=== PATIENT | female | born 1960 | race Caucasian/White ===

== ENCOUNTER 2018-10-26 18:59 | Emergency (ER) | payer SELFPAY ==
[2018-10-26 19:02] VITALS: BP 130/78; PULSE 70; RESP 18; TEMP 36.6; O2SAT 98
--- NOTE | 2018-10-26 19:14 | W.ED.GENAD ---
Discharge Plan Disposition Patient Disposition: HOME Condition: Stable Discharge Details Chief Complaint: AnimalBite Clinical Impression: Tick bite Primary Care Provider: Sylvia Vidales ED Provider: Bruno Rahman Home Meds and New Rx's Prescriptions: No Action cholecalciferol (vitamin D3) [Vitamin D3] 2,000 UNIT tablet 2,000 unit PO DAILY Qty: 90 RF: 3 albuterol sulfate [Ventolin HFA] 8 GM HFA aerosol inhaler 1 - 2 puff Inhalation Q4H PRN Qty: 1 RF: 1 inhalational spacing device [Space Chamber Plus] 1 EACH spacer 1 ea Miscellaneous PRN Qty: 1 RF: 0 Discharge Instructions Instructions: Tick Bite (ED) Medical Decision Making pt states yesterday pulled two ticks off yesterday that did not appear engorged per pt. She was concerned the head may have been left so came here for an eval. She pulled them off the upper abdomen bilaterally. She has small 0.5cm areaas of mild erythema without bulls eye and no pain or warmth. no evidence of EM or cellulitis and do not feel trying to dig out potential head indicated. advised return if worsening or if bulls eye develops Differential Diagnosis tick bite HPI General Mode of arrival: ambulatory. Date/Time Provider Initiated Documentation: 10/26/18 19:08. Limitations to Documentation: no limitations. Information obtained by: patient. History of Present Illness 57 year old F presents to the emergency department with the chief complaint of tick bite, described as mild, Patient started experiencing this day(s) (1) and it has been constant. No relieving factors improve symptom(s), No exacerbating factors reported . Patient did receive the following treatments prior to arrival, none Related Data Home Medications Medication Instructions Recorded Confirmed albuterol sulfate [Ventolin HFA] 1 - 2 puff INHALATION Q4H PRN #1 08/14/15 10/26/18 inhaler cholecalciferol (vitamin D3) 2,000 unit PO DAILY #90 tab-cap 08/14/15 10/26/18 [Vitamin D3] inhalational spacing device [Space #1 08/14/15 Chamber Plus] Allergies Allergy/AdvReac Type Severity Reaction Status Date / Time Penicillins Allergy Severe Anaphylaxsi Unverified 10/26/18 19:07 s General Stated Complaint: AnimalBite CARY: 4 Review of Systems Review of Systems All systems reviewed & are unremarkable except as noted in HPI and below Constitutional Denies chills, Denies fever(s) and Denies weakness ENT Denies change in voice Cardiovascular Denies chest pain and Denies dyspnea Respiratory Denies cough and Denies dyspnea Gastrointestinal Denies abdominal pain, Denies nausea and Denies vomiting Musculoskeletal Denies joint swelling Neurologic Denies weakness Endocrine Denies heat intolerance PFSH Medical History Anxiety Depression Family History Mother Heart disease Father Emphysema Sister Depression Mental disorder Brother Sarcoidosis of lung Social History Smoking/Tobacco Use Status: Former Tobacco Use Alcohol Intake: current Alcohol Intake frequency: holidays/special occasions only Drug use: Never Do you feel safe at home: Yes Do you feel safe in your relationship?: Yes Exam Const General: no acute distress Orientation: alert HENMT Head: normal to inspection Ears: external ears normal General nose exam: external nose normal Mouth: moist mucous membranes Eyes General: appearance normal, both eyes and all related structures Neck Neck: normal visual inspection Resp Effort & Inspection: normal respiratory effort and able to speak in complete sentences Cardio Rate: regular rate Skin General skin exam: elasticity normal Neuro General: alert and oriented x3 Extrem General: normal to inspection Psych Mental Status: mental status grossly normal Course Vital Signs Temperature 36.6 C 10/26/18 19:02 Pulse 70 10/26/18 19:02 Respiratory Rate 18 10/26/18 19:02 Blood Pressure 130/78 10/26/18 19:02 Pulse Oximetry 98 10/26/18 19:02 Temperature 36.6 C 10/26/18 19:02 Temperature Source Skin 10/26/18 19:02 Pulse 70 10/26/18 19:02 Respiratory Rate 18 10/26/18 19:02 Respiratory Effort Non-Labored 10/26/18 19:09 Blood Pressure 130/78 10/26/18 19:02 Pulse Oximetry 98 10/26/18 19:02 Oxygen Delivery Method Nasal Cannula 10/26/18 19:02 Pain Level 0 10/26/18 19:02
--- NOTE | 2018-10-26 19:17 | ED.GENADUL_ITS ---
Discharge Plan Disposition Patient Disposition: HOME Condition: Stable Discharge Details Chief Complaint: AnimalBite Clinical Impression: Tick bite Primary Care Provider: Sylvia Vidales ED Provider: Bruno Rahman Home Meds and New Rx's Prescriptions: No Action cholecalciferol (vitamin D3) [Vitamin D3] 2,000 UNIT tablet 2,000 unit PO DAILY Qty: 90 RF: 3 albuterol sulfate [Ventolin HFA] 8 GM HFA aerosol inhaler 1 - 2 puff Inhalation Q4H PRN Qty: 1 RF: 1 inhalational spacing device [Space Chamber Plus] 1 EACH spacer 1 ea Miscellaneous PRN Qty: 1 RF: 0 Discharge Instructions Instructions: Tick Bite (ED) Medical Decision Making pt states yesterday pulled two ticks off yesterday that did not appear engorged per pt. She was concerned the head may have been left so came here for an eval. She pulled them off the upper abdomen bilaterally. She has small 0.5cm areaas of mild erythema without bulls eye and no pain or warmth. no evidence of EM or cellulitis and do not feel trying to dig out potential head indicated. advised return if worsening or if bulls eye develops Differential Diagnosis tick bite HPI General Mode of arrival: ambulatory . Date/Time Provider Initiated Documentation: 10/26/18 19:08 . Limitations to Documentation: no limitations . Information obtained by: patient . History of Present Illness 57 year old F presents to the emergency department with the chief complaint of tick bite, described as mild, Patient started experiencing this day(s) (1) and it has been constant. No relieving factors improve symptom(s), No exacerbating factors reported . Patient did receive the following treatments prior to arrival, none Related Data Home Medications Medication Instructions Recorded Confirmed albuterol sulfate [Ventolin HFA] 1 - 2 puff INHALATION Q4H PRN #1 08/14/15 10/26/18 inhaler cholecalciferol (vitamin D3) 2,000 unit PO DAILY #90 tab-cap 08/14/15 10/26/18 [Vitamin D3] inhalational spacing device [Space #1 08/14/15 Chamber Plus] Allergies Allergy/AdvReac Type Severity Reaction Status Date / Time Penicillins Allergy Severe Anaphylaxsi Unverified 10/26/18 19:07 s General Stated Complaint: AnimalBite CARY: 4 Review of Systems Review of Systems All systems reviewed & are unremarkable except as noted in HPI and below Constitutional Denies chills, Denies fever(s) and Denies weakness ENT Denies change in voice Cardiovascular Denies chest pain and Denies dyspnea Respiratory Denies cough and Denies dyspnea Gastrointestinal Denies abdominal pain, Denies nausea and Denies vomiting Musculoskeletal Denies joint swelling Neurologic Denies weakness Endocrine Denies heat intolerance PFSH Medical History Anxiety Depression Family History Mother Heart disease Father Emphysema Sister Depression Mental disorder Brother Sarcoidosis of lung Social History Smoking/Tobacco Use Status: Former Tobacco Use Alcohol Intake: current Alcohol Intake frequency: holidays/special occasions only Drug use: Never Do you feel safe at home: Yes Do you feel safe in your relationship?: Yes Exam Const General: no acute distress Orientation: alert HENMT Head: normal to inspection Ears: external ears normal General nose exam: external nose normal Mouth: moist mucous membranes Eyes General: appearance normal, both eyes and all related structures Neck Neck: normal visual inspection Resp Effort & Inspection: normal respiratory effort and able to speak in complete sentences Cardio Rate: regular rate Skin General skin exam: elasticity normal Neuro General: alert and oriented x3 Extrem General: normal to inspection Psych Mental Status: mental status grossly normal Course Vital Signs Temperature 36.6 C 10/26/18 19:02 Pulse 70 10/26/18 19:02 Respiratory Rate 18 10/26/18 19:02 Blood Pressure 130/78 10/26/18 19:02 Pulse Oximetry 98 10/26/18 19:02 Temperature 36.6 C 10/26/18 19:02 Temperature Source Skin 10/26/18 19:02 Pulse 70 10/26/18 19:02 Respiratory Rate 18 10/26/18 19:02 Respiratory Effort Non-Labored 10/26/18 19:09 Blood Pressure 130/78 10/26/18 19:02 Pulse Oximetry 98 10/26/18 19:02 Oxygen Delivery Method Nasal Cannula 10/26/18 19:02 Pain Level 0 10/26/18 19:02
== END 2018-10-26 19:20 | disposition home or self-care (01) ==
PROVIDERS: Emergency Provider Emergency Medicine; PCP Nurse Practitioner Family
DX: S30.861A Insect bite (nonvenomous) of abdominal wall, initial encounter (principal); W57.XXXA Bitten or stung by nonvenomous insect and other nonvenomous arthropods, initial encounter
CPT/HCPCS: 99282

== ENCOUNTER 2019-01-30 11:38 | Outpatient (CLI) | payer OTHER, SELFPAY ==
--- NOTE | 2019-01-30 10:55 | DI.RAD_ITS ---
SYMPTOM/DIAGNOSIS: RT ACHILLES TENDINITIS RIGHT CALCANEUS: There is prominent spurring at the posterior calcaneal tuberosity. No plantar spur is seen. There are no significant degenerative changes of the talocalcaneal joint. IMPRESSION: Prominent posterior calcaneal spur.
== END 2019-01-30 11:58 ==
PROVIDERS: PCP Nurse Practitioner Adult Health; Visit Provider Student in an Organized Health Care Education/Training Program
DX: M79.671 Pain in right foot (principal); M77.31 Calcaneal spur, right foot; M76.61 Achilles tendinitis, right leg
CPT/HCPCS: 73650

== ENCOUNTER 2019-02-27 11:28 | Outpatient (REF) | payer BC, SELFPAY ==
--- NOTE | 2019-02-27 12:15 | PAPFT_PTH ---
PATIENT: Kristina Sr LOC: [facility] U#:[id number] AGE/SX: 58/F ROOM: RE02/27/[address]: Heide Nunn APRN : 1960 BED: DIS: 02/27/2019 SPEC #: [id number] RECD: 02/28/19 17:53 STATUS: ANAM REKierra #: [id number] SHANELLE: 02/27/19 12:[address]: Heide Nunn DEPT: [facility] Cytology RECD BY: Cheyanne Cowart Tissues: 1 - CX/ENDOCX FOR PAP SMEARS Procedures: PAP THIN PREP/UVM Screening HPV DNA PROBE Comments: [id number]
== END 2019-02-27 11:48 ==
LOC: LBN 11:28
PROVIDERS: PCP Nurse Practitioner Adult Health; Visit Provider Nurse Practitioner Adult Health
DX: Z12.4 Encounter for screening for malignant neoplasm of cervix (principal); Z11.51 Encounter for screening for human papillomavirus (HPV)
CPT/HCPCS: 88142; 87624

== ENCOUNTER 2019-03-21 08:14 | Outpatient (CLI) | payer SELFPAY, BC ==
--- NOTE | 2019-03-21 10:00 | HPE_ITS ---
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 Reports a significant concern with postoperative care. Patient had an appointment with physical therapy at which time they showed patient how to ambulate with crutches postoperatively. Following this PT visit she states that she has significant upper body weakness and is unsure how she will be able to ascend 14 stairs to her bedroom and bathroom once at home. In addition she reports concern regarding ability to make her own meals. Patient questions whether she can be sent to rehab or swing bed following surgery. Educated patient this is an outpatient procedure. Recommend she make a place to sleep and get a commode for the first floor of her home. After discussion patient seems less anxious about postoperative management; will discuss case with Dr. Shepherd in detail. Educated patient on surgery covering surgical technique, recovery process, benefits and risks including but not limited to risk of infection, blood clot, damage to soft tissue/blood vessels/nerves in detail. After discussion patient gives verbal understanding of risks and elects to proceed with scheduling surgery. Patient had opportunity to have questions answered to their satisfaction. They will contact office if issues arise. Patient will continue to be scheduled for right Achilles tendon debridement with possible repair and resection of Josefa's deformity with Dr. Shepherd. History of Present Illness Narrative: Ms. Sr is a 58-year-old female who presents to clinic with her for preoperative visit for scheduled right Achilles debridement with possible repair and resection of Josefa deformity. Patient has been experiencing right heel and foot pain for over a year. Describes pain as a posterior heel discomfort is noted with all weightbearing activity. Since onset of discomfort patient has tried to treat her discomfort by adapting her shoes to wear only sandals which have an open heel which has helped. In addition she has trialed heel lifts, topical CBD oil and has even tried physical therapy with continued exercising; patient reports little symptomatic improvement with these modifications. Unfortunately, she continues to have significant pain with weight bearing activity. She had tried rare OTC pain medications which did not provide long lasting relief. Denies any trauma to the foot. Denies any numbness or tingling. Due to patient's continued pain despite adequate trial conservative therapy she was offered surgical intervention and elected to proceed. Pertinent Surgical Information Denies past medical history of: Hypertension, stroke, cardiac issues, angina, sleep apnea, renal issues, liver issues, hepatitis, gastrointestinal issues, ulcers, bleeding disorders, seizures, migraines, diabetes, autoimmune disorders, thyroid issues Denies any previous surgery or anesthesia. Review of Systems Constitutional Constitutional: Denies fever(s), Denies frequent falls and Denies headache(s) Eyes Eyes: Denies change in vision ENT Ears, Nose, Mouth, and Throat: Denies dizziness, Denies ear discharge, Denies headache(s), Denies epistaxis, Denies nasal discharge and Denies sore throat Cardiovascular Cardiovascular: Denies chest pain, Reports rapid heart rate, Denies irregular heart rhythm, Denies palpitations, Reports dyspnea (reports chronic dyspnea especially at the change of season), Denies dyspnea on exertion, Denies orthopnea, Denies paroxysmal nocturnal dyspnea and Denies slow heart rate Comments: Reports recently had Novocain with epinephrine at the dentist which caused tachycardia that lasted for a few minutes; denies any recurrent symptoms. Reports her dyspnea has been present since she was in her 20s; changes minor changes with each season. Denies any change in dyspnea with activity; denies any cardiac symptoms. Respiratory Respiratory: Denies cough, Reports dyspnea (reports chronic dyspnea especially at the change of season), Denies dyspnea on exertion and Denies wheezing Gastrointestinal Gastrointestinal: Denies abdominal pain, Denies melena, Denies hematochezia, Denies constipation, Denies diarrhea, Denies nausea and Denies vomiting Genitourinary Genitourinary: Denies hematuria, Denies dysuria and Denies urinary urgency Musculoskeletal Musculoskeletal: Reports as per HPI, Denies numbness and Denies tingling Neurologic Neurologic: Denies dizziness, Denies frequent falls, Denies headache(s), Denies numbness and Denies tingling Psychiatric Psychiatric: Reports anxiety and Reports depression Endocrine Endocrine: Denies palpitations Allergic/Immunologic Allergic/Immunologic: Denies wheezing [facility] Medical History Anxiety (Inactive) Chronic shortness of breath (Chronic) Since 30s Was told it was related to being premature by pulmonology. Normal PFTs & echo. 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 Heart disease CABG x 3 at age 85 Father , Emphysema at age 77. Emphysema Smoker Sister Depression Mental disorder Schizophrenia Brother Sarcoidosis of lung Social History (Updated 03/21/19 @ 10:11 by Shell Aponte) Smoking/Tobacco Use Status: Former Tobacco Use Tobacco: How many years used: 3 Alcohol Intake: current Alcohol Intake frequency: holidays/special occasions only Alcohol type: wine Drug use: Never Substance use type: does not use Details: States CBD salve to R foot What type of physical activity do you participate in: none Do you feel safe at home: Yes Do you feel safe in your relationship?: Yes Meds Home Medications and Allergies Home Medications Medication Instructions Recorded Confirmed Type Space Chamber Plus #1 08/14/15 01/30/19 History cholecalciferol (vitamin D3) 2,000 unit PO DAILY #90 tab-cap 08/14/15 03/21/19 History [Vitamin D3] albuterol sulfate 90 mcg/actuation 1 - 2 puff INHALATION Q4H PRN #8 gm 02/27/19 03/21/19 Rx aerosol inhaler valerian root 450 mg PO PRN PRN 03/21/19 03/21/19 History Allergies Allergy/AdvReac Type Severity Reaction Status Date / Time Penicillins Allergy Severe Anaphylaxsi Verified 03/21/19 10:13 s Red wine Allergy Severe Closes up Uncoded 03/21/19 10:13 my airway Exam Const General: cooperative and no acute distress HENMT Head: normal to inspection, normocephalic and atraumatic Ears: external ears normal General nose exam: external nose normal and no nasal discharge Face and sinus: face symmetric Mouth: oral mucosae normal, lip normal, tongue normal and moist mucous membranes Teeth and gingiva: dentition normal Throat: posterior oropharynx normal Eyes General: appearance normal, both eyes and all related structures Pupils: PERRL EOM: EOM intact bilaterally Neck Neck: trachea midline Carotids: normal carotid upstroke Lymphatic: no lymphadenopathy noted Resp Effort & Inspection: normal respiratory effort and able to speak in complete sentences Auscultation: clear to auscultation bilaterally, no rales, no rhonchi and no wheezes Cardio Heart Sounds: S1 normal, S2 normal and no murmurs Pulses: radial pulses present bilaterally GI Palpation: soft, no hepatosplenomegaly and nontender Auscultation: normal bowel sounds Skin General skin exam: no rashes or lesions noted
== END 2019-03-21 08:34 ==
PROVIDERS: PCP Nurse Practitioner Adult Health; Visit Provider Student in an Organized Health Care Education/Training Program
DX: M92.61 Juvenile osteochondrosis of tarsus, right ankle (principal); M76.61 Achilles tendinitis, right leg; Z01.818 Encounter for other preprocedural examination
CPT/HCPCS: NC

== ENCOUNTER 2019-03-29 06:07 | Day surgery (SDC) | payer BC, SELFPAY ==
[2019-03-21 08:09] VITALS: BP 137/93; PULSE 67; RESP 19; TEMP 36.5; O2SAT 97
[2019-03-29] VITALS (8 sets, daily range): BP systolic 84–149; BP diastolic 32–82; PULSE 54–71; RESP 12–18; TEMP 36.1–36.5; O2SAT 93–100
[2019-03-29] MEDS: Lactated Ringers 1,000 ML 80 ML IV ×3 (07:12→09:02)
[2019-03-29] MEDS: CLINDAMYCIN 600 MG/50 ML BAG 100 MG IVPB (07:32)
[2019-03-29] MEDS: Bupivacaine 0.5% Pres-Free 30 ML VIAL (08:35)
[2019-03-29] MEDS: Bupivacaine LIPOSOME/PF 133 MG/10 ML VIAL IJ (08:35)
--- NOTE | 2019-03-29 10:30 | W.PM.DSUDISC ---
Discharge Plan Disposition Patient Disposition: HOME Condition: Good Discharge Details Reason For Visit: Right Achilles Tendinits and Josefa Deformity Attending Provider: Axel Shephedr Primary Care Provider: Heide Nunn Home Meds and New Rx's Prescriptions: New acetaminophen 500 mg tablet 1,000 mg PO Q8H PRN (Reason: pain) Qty: 60 RF: 3 aspirin 81 mg tablet,delayed release (DR/EC) 81 mg PO BID Qty: 28 RF: 0 hydrocodone-acetaminophen 5-325 mg tablet 1 tab PO Q6H PRN PRN (Reason: pain) Qty: 12 RF: 0 ibuprofen 600 mg tablet 600 mg PO TID PRNQty: 60 RF: 3 Continued albuterol sulfate [Ventolin HFA] 90 mcg/actuation HFA aerosol inhaler 1 - 2 puff Inhalation Q4H PRN Qty: 8 RF: 3 cholecalciferol (vitamin D3) [Vitamin D3] 2,000 UNIT tablet 2,000 unit PO DAILY Qty: 90 RF: 3 (DME) Space Chamber Plus 1 EACH spacer 1 ea Miscellaneous PRN Qty: 1 RF: 0 valerian root 450 mg Capsule 450 mg PO PRN PRNRF: 0 multivitamin [Daily Multiple] Tablet RF: 0 ascorbic acid (vitamin C) [Vitamin C] 1,000 mg Tablet RF: 0 Discharge Instructions Additional Instructions: Activity: You may weight bear on the right leg with the boot and with support on your walker or knee scooter. You should keep the leg elevated as much as possible. You may wiggle your toes and move your hip and knee. You should wear the fracture walking boot when you are up and mobilizing, but may remove it when not moving but only gentle motion. Dressings: You should keep the initial dressing on for at least 3 days. It may stay on until your follow-up. If it is removed, cover the wound with a light gauze dressing and place some padding under the heel. Medications: - You should take Tylenol and Ibuprofen around the clock for baseline pain. - You have been prescribed a stronger narcotic, Hydrocodone, for breakthrough pain. 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
--- NOTE | 2019-03-29 11:19 | PT.INIE ---
Date of service: 03/29/19 Time of Service: 11:12 PT Notes Inpatient Physical Therapy Evaluation Date: 03/29/2019 0400 Referring Doctor: Axel Shepherd MD PT Orders: PT CONSULT: Limited ability. PWB on right LE. Precautions: Fall. Standard. PWB on R LE. Aircast boot on with weightbearing. 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 She states however that railing are far apart so she is only able to hold onto one at a time. She has 14 steps with railing on the L going up to get to the second floor of her house. She reports that she has made modifications on the first floor of the house so that she can manage for a few days without needing to negotiate the stairs. Patient has a friend who can help her during the day while her is at work. Current Functional Limitations: Need for an assistive device for all mobility ADL performance; Inability to manage steps alone Equipment Owned/DME: 4[employer], bilateral axillary crutches, knee scooter Subjective: Patient is agreeable to a PT consult and training today. She is leary about putting too much weight on her R LE despite assurances that she may do so under PWB order of orthopedic surgeon. She denies headache, chest pain, and dizziness throughout PT session. Objective: General Observation: Patient on air cast fracture boot. Cold pack placed inside boot for pain relief. Mental Status: Alert and oriented x 4 Pain: 0/10 ROM: Right Upper Extremity: Shoulder Flexion WFL. Shoulder abduction WFL. Elbow flexion WFL. Wrist flexion WFL. Opening and closing of hand WFL. Left Upper Extremity: Shoulder Flexion WFL. Shoulder abduction WFL. Elbow flexion WFL. Wrist flexion WFL. Opening and closing of hand WFL. Right Lower Extremity: Hip flexion WFL. Hip abduction WFL. Knee flexion NT. Ankle dorsiflexion NT. Ankle plantarflexion NT. Left Lower Extremity: Hip flexion WFL. Hip abduction WFL. Knee flexion WFL. Ankle dorsiflexion WFL. Ankle plantarflexion WFL. Strength: Right Upper Extremity: Shoulder flexors 5/5. Shoulder abductors 5/5. Elbow flexors 5/5. Elbow extensors 5/5. [employer] strong. Left Upper Extremity: Shoulder flexors 5/5. Shoulder abductors 5/5. Elbow flexors 5/5. Elbow extensors 5/5. [employer]sman strong. Right Lower Extremity: Hip flexors 4/5. Hip abductors 4/5. Knee flexors NT. Knee extensors NT. Ankle dorsiflexors NT. Ankle plantarflexors NT. Left Lower Extremity:Hip flexors 5/5. Hip abductors 5/5. Knee flexors 5/5. Knee extensors 5/5. Ankle dorsiflexors 5/5. Ankle plantarflexors 5/5. Sensation: Intact as to pain and pressure on L lower extremity. Bed Mobility/Transfers: Rolling Independent Supine to sit Independent Sit to supine Independent Sit to stand supervision Stand to sit supervision Bed to chair supervision Chair to bed supervision Gait: Patient tolerated level surface ambulation of up to 60 feet using a front-wheeled walker and then bilateral axillary crutches with supervision assist and minimal verbal cueing for safe gait pattern, correct posture, and safe directional changes. Patient stated she felt freer with the cruthces but did not feel all that stable compared to the walker. [facility] to [facility] steps using the crutches with CGA of this PT with moderate verbal cues given for safe technique, cructh management, and safe gait pattern. Patient was also instructed. Balance: Static Sitting: Normal Dynamic Sitting: Normal Static Standing: Fair Dynamic Standing: Fair Special Tests: Mobility Limitations Standardized Measure [employer] AM-PAC 6 clicks Basic Mobility Inpatient Short Form: Raw Score: 23 CMS Score: 11% Informed Consent/Education: Patient instructed in purpose of PT consult and plan of care. First she was trained on how to safely use a front-wheeled walker. She was then instructed on the use of bilateral axillary crutches on level surface and on the stairs with SBA of student PT and PACU nurse. 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 She demonstrates increased confidence about walking on level surface using both the walker and the bilateral axillary crutches but is leary about negotiating steps. She did express that having home health PT train her with stair negotiation may not be a bad idea as she hopes to be able to handle 14 steps and sleep comfortably on her bed the soonest and safest that she can. Her prognosis is good as she is very motivated to return to her premorbid independnent level, has a good support system from and friend, and well-managed co-morbid conditions. Patient presents with clinical signs and symptoms consistent with current/admitting diagnoses that have resulted to mobility limitations, gait instability, generalized weakness, and impairment of motor control as demonstrated by the following impairment level findings: 1. Decreased strength to B LE major muscle groups 2. Impaired sitting/standing balance 3. Impaired activity tolerance 4. Limitation of joint range of motion in R ankle due to surgery and movement/WB restriction Impairments are contributing to the following functional limitations: 1. Inability to safely ambulate without assistive device and physical assistance 2. Increase completion time for mobility ADL performance 3. Increased fall risk 4. 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 Examination: Demonstrable impairment in strength, balance, and range of motion with underlying impairments and functional limitations as documented above Presentation:Evolving Decision Makin moderate complexity Plan of Care/Treatment Plan: Patient goes home today per orthopedic surgeon's instructions. DISCHARGE RECOMMENDATIONS: Patient will benefit from home health PT services in order to to increase independence with stair negotiation at home. Patient may benefit from the use of a front-wheeled walker to conserve energy and maximize ambulation distance. TREATMENT CODE/TIME: 27920 x 40 minutes beginning at 11:12 AM. Thank you very much for this referral. Fatuma Grullon PT, DPT, CLT [facility]
--- NOTE | 2019-03-30 07:00 | W.PM.OP ---
Date of service: 03/29/19 Time of Service: 09:00 Operative Note Operative Note DATE OF PROCEDURE: 03/29/19 PRE-OP DIAGNOSIS: Right calcific Achilles tendinitis and Josefa deformity POST-OP DIAGNOSIS: same PROCEDURE: Right Achilles tendon insertion debridement, bony resection of Josefa deformity SURGEON: Axel Shepherd PRODUCT MANAGER E COMMERCE: Shell Aponte ANESTHESIA: GETA ESTIMATED BLOOD LOSS: 5 TOURNIQUET TIME: 30 COMPLICATIONS: None Patient was transported to: PACU Patient's condition: stable Indications: Mindy is a 58-year-old female who has had persistent posterior heel pain of the right foot. She has been treating this conservatively and has been unable to wear regular shoes. She had prominence to the insertion of the Achilles with calcifications noted on x-ray and a large Josefa deformity. After reviewing treatment options, I did offer operative intervention. She did exhaust conservative treatments. I reviewed the risk of the surgery to include bleeding, infection, pain, stiffness, skin healing difficulties, Achilles tendon dysfunction, continued symptoms, damage to nerves and vessels, failure of Achilles repair, blood clot. Despite these risks, she elected to proceed. Findings: There was a notable prominence to the insertion of the Achilles as well as a large Josefa deformity. The Achilles tendon was incised but maintained attachments at the far aspects medially and laterally to expose the calcifications and they were removed. The Josefa deformity was also removed with an oscillating saw. The Achilles tendon was repaired with a single Mitek Fastin anchor, oversewn with #2 FiberWire. Procedure Description: Mindy was greeted in the preoperative holding area. Her identity was confirmed the correct site was identified and marked. The consent was reviewed the patient and signed. History physical was updated. She was taken to the operating room. In the supine position a general anesthetic was administered. She was then positioned in the prone position on a Emmanuel frame. Each arm was placed in a position of 90 degrees of abduction and 90 degrees of elbow flexion. Each was well-padded for no points of pressure. Gel cushion was also placed underneath both knees. No tourniquet was used. The left foot was prepped with ChloraPrep and draped in standard fashion. Prophylactic antibiotics in the form of clindamycin were given. A timeout was performed for safe surgery. The proposed surgical site was anesthetized with 0.5% bupivacaine and Exparel. A midline incision was then made after anesthetizing skin with 0.5% bupivacaine. This midline incision was taken down all the way to the peritenon of the Achilles tendon and the tuberosity of the calcaneus. Full-thickness skin flaps were elevated. Any bleeding was stopped with electrocautery. The tissue in general was actually of good quality. The prominence of bone was identified. The Achilles tendon was then incised longitudinally and raised in a periosteal fashion. The central fibers were elevated off of the tuberosity to expose the prominence of bony calcification. These were then resected with the use of a rongeur. Palpation was made around the tuberosity to make sure that all bony promises were removed. There is a portion of the medial and lateral Achilles still attached maintaining length. Using an oscillating saw I then resected a the Josefa deformity. A rasp was used to smooth the bony surfaces and contour the calcaneus. A single 5.0 mm Fastin anchor was then placed into the calcaneus. This had excellent purchase. A running locking suture was placed on both medial and lateral portions of the incised tendon. One limb of the suture was placed in the other it worked as a lino. This reduced the edges of the Achilles tendon down to the tuberosity. A #2 FiberWire was then placed in between the longitudinal splits in full-thickness fashion to finally reapproximate the Achilles tendon. The wound was then thoroughly irrigated. The deep tissues were injected with the remaining mixture of 10 cc of 0.5 bupivacaine and 10 cc of Exparel. A few #3-0 Vicryl was placed deep to reapproximate the skin. The skin was closed with interrupted nylon sutures. A dressing of Xeroform, 4 x 4's and Bradford wrap was applied. She was placed into a fracture walker boot. No tourniquet was used. There is minimal blood loss. At the end of the case all counts are correct. Mindy was awakened from anesthesia and transferred to the supine position. There is no notable areas of skin pressure. She was taken to the PACU in stable condition. There is no notable complications. She will be in the walker boot when she is up and ambulating. She may place her body weight on the boot but she is not step to walk on at this point. There was a padding placed below the heel to elevate the heel off the floor of the boot. She will use crutches. I will see her back in 2 weeks for a wound check and modification to her rehabilitation protocol.
== END 2019-03-29 12:25 | disposition home or self-care (01) ==
PROVIDERS: PCP Nurse Practitioner Adult Health; Visit Provider Student in an Organized Health Care Education/Training Program
PROC: (CPT 27650; principal; 2019-03-29 07:30)
DX: M76.61 Achilles tendinitis, right leg (principal); M77.31 Calcaneal spur, right foot; M89.8X7 Other specified disorders of bone, ankle and foot
CPT/HCPCS: 28119; 27606; 97162; C1713; J0131; J1100; J1885; J2250; J2405; J3010; L4361

== ENCOUNTER 2019-08-15 01:47 | Outpatient (CLI) | payer BC, SELFPAY ==
[2019-08-15 08:47] LABS: Abs Immature Grans 0.01 k/cumm (0.0-0.09); Absolute Basophil Count 0.04 k/cumm (0.0-0.2); Absolute Eosinophil Count 0.16 k/cumm (0.0-0.7); Absolute Lymphocyte Count 1.68 k/cumm (1.2-3.4); Absolute Monocyte Count 0.28 k/cumm (0.11-0.7); Absolute Neutrophil Count 1.97 k/cumm (1.2-6.7); Eosinophils % 3.9; HCT 40.5 % (36.0-46.0); HGB 13.2 g/dL (12.0-15.5); Immature Grans % 0.2 %; Lymphocytes % 40.6; Mean Corp. HGB Concentration 32.6 g/dL (32.0-36.0); Mean Corpuscular Hemoglobin 27.9 pg (27.0-33.0); Mean Corpuscular Volume 85.6 fL (80-95); Mean Platelet Volume 9.7 fL (8.0-11.0); Monocytes % 6.8; Neutrophils % 47.5; Platelet Count 294 x1000/uL (130-400); RBC 4.73 m/cumm (4.00-5.20); RBC Distribution Width 14.4 % (11.7-14.6); White Blood Cell Count 4.14 k/cumm (4.4-10.8)
[2019-08-15 08:50] LABS: Hemoglobin A1C 5.9 % (3.8-5.6)
[2019-08-15 09:38] LABS: ALT 23 U/L (14-59); AST 14 U/L (15-37); Albumin 3.9 g/dL (3.4-5.0); Alkaline Phosphatase 82 U/L (46-116); Anion Gap 8.1 mmol/L (3-11); BUN 16 mg/dL (7-18); Bilirubin, Total 0.6 mg/dL (0.2-1.0); CO2 28.9 mmol/L (21.0-32.0); CREATININE 0.71 mg/dL (0.55-1.02); Calcium 8.8 mg/dL (8.5-10.1); Calculated LDL 131 mg/dL (<100); Chloride 102 mmol/L (98-107); Cholesterol 229 mg/dL (<200); Glucose 95 mg/dL (74-106); HDL Cholesterol 81 mg/dL (40-60); Sodium 139 mmol/L (136-145); TSH (W/Ref FT4) 2.73 uIU/mL (0.36-3.74); Total Protein 7.3 g/dL (6.4-8.2); Triglyceride 88 mg/dL (<150); Vitamin B12 465 pg/mL (193-986)
== END 2019-08-15 02:07 ==
PROVIDERS: PCP Nurse Practitioner Adult Health; Visit Provider Nurse Practitioner Adult Health
DX: F41.9 Anxiety disorder, unspecified (principal); R53.83 Other fatigue; R73.01 Impaired fasting glucose; E66.9 Obesity, unspecified; Z13.1 Encounter for screening for diabetes mellitus; Z13.220 Encounter for screening for lipoid disorders
CPT/HCPCS: 36415; 80053; 80061; 82306; 82607; 83036; 84443; 85025

== ENCOUNTER 2020-04-25 02:28 | Outpatient (CLI) | payer BC, SELFPAY ==
[2020-04-25 12:40] LABS: Vitamin D 25 Total 54.3 ng/ml (30-100)
== END 2020-04-25 02:48 ==
PROVIDERS: PCP Nurse Practitioner Adult Health; Visit Provider Nurse Practitioner Adult Health
DX: Z86.39 Personal history of other endocrine, nutritional and metabolic disease (principal)
CPT/HCPCS: 36415; 82306

== ENCOUNTER 2020-08-20 01:19 | Outpatient (CLI) | payer BC, SELFPAY ==
--- NOTE | 2020-08-20 10:14 | DI.RAD_ITS ---
EXAM: XR SHOULDER RT COMPLETE 2+V CLINICAL HISTORY: PAIN, TENDINITIS RT SHOULDER, M75.81 TECHNIQUE: COMPARISON: No exams were available for comparison FINDINGS: Five views were obtained. There are minimal hypertrophic degenerative changes of the acromioclavicul ar joint. No other significant bony abnormality seen. Cartilaginous joint space of glenohumeral fred nt appears well maintained. IMPRESSION: Mild DJD of acromioclavicular joint. Requisition raises the possibility of tendinitis and no periten dinous soft tissue calcifications are identified. RADIATION DOSE DELIVERED: Total DLP
== END 2020-08-20 01:39 ==
PROVIDERS: PCP Nurse Practitioner Adult Health; Visit Provider Family Medicine
DX: M25.511 Pain in right shoulder (principal); M19.011 Primary osteoarthritis, right shoulder; M75.81 Other shoulder lesions, right shoulder
CPT/HCPCS: 73030

== ENCOUNTER 2020-10-23 02:49 | Outpatient (CLI) | payer BC, SELFPAY ==
[2020-10-23 08:21] LABS: Hemoglobin A1C 5.5 % (<5.7)
[2020-10-23 09:57] LABS: ALT 25 U/L (14-59); AST 17 U/L (15-37); Albumin 3.8 g/dL (3.4-5.0); Alkaline Phosphatase 82 U/L (46-116); Anion Gap 9.1 mmol/L (3-11); BUN 12 mg/dL (7-18); Bilirubin, Total 0.6 mg/dL (0.2-1.0); CO2 27.9 mmol/L (21.0-32.0); CREATININE 0.7 mg/dL (0.55-1.02); Calcium 9.1 mg/dL (8.5-10.1); Calculated LDL 123 mg/dL (<100); Chloride 105 mmol/L (98-107); Cholesterol 218 mg/dL (<200); Glucose 95 mg/dL (74-106); HDL Cholesterol 81 mg/dL (40-60); Potassium 4.3 mmol/L (3.5-5.1); Sodium 142 mmol/L (136-145); TSH (W/Ref FT4) 2.13 uIU/mL (0.36-3.74); Total Protein 7.1 g/dL (6.4-8.2); Triglyceride 73 mg/dL (<150)
[2020-10-24 04:31] LABS: Vitamin D 25 Total 66.2 ng/mL (30-100)
[2020-10-24 10:08] LABS: HIV-1/2 Ag & Ab Screen Negative (Negative)
[2020-10-24 10:29] LABS: Hepatitis C Ab w Rflx HCV PCR Negative (Negative)
[2020-10-24 10:45] LABS: Lyme Ab w Rflx to Lyme Confirm Negative (Negative)
== END 2020-10-23 02:50 | disposition home or self-care (01) ==
LOC: LBO 02:49
PROVIDERS: PCP Nurse Practitioner Adult Health; Visit Provider Nurse Practitioner Adult Health
DX: R73.01 Impaired fasting glucose (principal); E55.9 Vitamin D deficiency, unspecified; R03.0 Elevated blood-pressure reading, without diagnosis of hypertension; E78.2 Mixed hyperlipidemia; E66.3 Overweight; W57.XXXA Bitten or stung by nonvenomous insect and other nonvenomous arthropods, initial encounter; T14.8XXA Other injury of unspecified body region, initial encounter; Z11.4 Encounter for screening for human immunodeficiency virus [HIV]; Z11.59 Encounter for screening for other viral diseases
CPT/HCPCS: 36415; 80053; 80061; 82306; 86803; 87389; 83036; 84443; 86618

== ENCOUNTER 2020-11-27 01:25 | Outpatient (CLI) | payer BC, SELFPAY ==
--- NOTE | 2020-11-27 08:45 | DI.RAD_ITS ---
Exam(s) XR CERVICAL SPINE COMP 4-5V EXAM: XR CERVICAL SPINE COMP 4-5V CLINICAL HISTORY: assess c-spine bony alignment--narrowing C6/7C7/8?,PAIN RT UPPER ARM,HAND. TECHNIQUE: 2D digital imaging was performed. COMPARISON: No exams were available for comparison FINDINGS: There is no evidence of fracture, listhesis, nor offset of the spinal laminar line. There is moderat e chronic disc space narrowing at C5-6 and C6-7 levels and anterior osteophytes at these 2 levels. S lightly milder disc space narrowing is noted at C4-5, also with anterior osseous lipping. Disc space s above this level exhibit normal height as does the C7-T1 disc space. On the oblique views there ar e left-sided Luschka joint osteophytes evident at C6-7 level. No osteophytes on the right side at th is level. There are no cervical ribs. Mild facet degenerative changes are noted IMPRESSION: Chronic degenerative disc disease. Left-sided Luschka joint osteophytes at C6-7 level causing an josh ment of left-sided foraminal stenosis at this level. DATA REPOSITORY: RADIATION DOSE DELIVERED:
== END 2020-11-27 01:45 ==
PROVIDERS: PCP Nurse Practitioner Adult Health; Visit Provider Nurse Practitioner Adult Health
DX: M50.323 Other cervical disc degeneration at C6-C7 level (principal); M48.02 Spinal stenosis, cervical region; M79.621 Pain in right upper arm
CPT/HCPCS: 72050

== ENCOUNTER 2021-02-06 01:36 | Outpatient (CLI) | payer BC, MEDICAID, SELFPAY ==
--- NOTE | 2021-02-06 08:00 | DI.MRI_ITS ---
Exam(s) MR CERVICAL SPINE W EXAM: MR CERVICAL SPINE W CLINICAL HISTORY: T2 foci C3/C4 C5/C6,?demyelinating disease,F/U ABNL MRI,NUMBNESS AND TING TECHNIQUE: T2 sagittal and post gadolinium T1 sagittal and axial sequences were performed. CONTRAST MATERIAL: IV Contrast: 19 ML of Dotarem contrast administered. COMPARISON: MR MRI CERVICAL WO from 01/08/2021 from [place] open MRI FINDINGS: BONES: Vertebral body heights are maintained. Intervertebral disc spaces are normal. Alignment is nor mal. Bone marrow signal intensity is within normal limits. CERVICAL CORD: Abnormal high signal on the T2 sagittal sequence at the C3 -4 and and C5-6 levels. Th ere is no associated enhancement following IV gadolinium. Craniovertebral junction is unremarkable. The cervical cord is normal diameter. SOFT TISSUES: Unremarkable. ENHANCEMENT: No suspicious enhancement identified. Degenerative disc changes are again noted as reported on the previous exam. IMPRESSION: No evidence of enhancement within the high T2 signal foci within the cervical cord. DATA REPOSITORY:
--- NOTE | 2021-02-06 08:00 | DI.MRI_ITS ---
Exam(s) MR BRAIN WO/W EXAM: MR BRAIN WO/W CLINICAL HISTORY: T2 foci C3/C4 C5/C6,?demyelinating disease,NUMBNESS,TINGLING. TECHNIQUE: Multiplanar multisequence MRI of the brain was performed. CONTRAST MATERIAL: IV Contrast: 19 ML of Dotarem contrast administered. COMPARISON: No exams were available for comparison FINDINGS: VENTRICLES AND EXTRA AXIAL SPACES: Normal in size and morphology for the patient's age. HEMORRHAGE: None. CEREBRAL PARENCHYMA: 16 millimeter diameter high signal focus in the posterior left frontal lobe. The re is no associated enhancement. There are few a additional scattered tiny high signal lesions in the white matter which are nonspecific. Asymmetric increased high signal seen around the posterior horn of the left lateral ventricle. This also shows no associated enhancement. There is an additional smal l focus of high signal on FLAIR images in the left frontal lobe just beneath the level of the lateral ventricle. MIDLINE SHIFT: None. BRAINSTEM/CEREBELLUM: Normal. VISUALIZED PARANASAL SINUSES/MASTOIDS: Clear. IMPRESSION: Abnormal high signal foci in the left frontal lobe and adjacent to the posterior horn of the left lat eral ventricle. there is no associated enhancement however the findings are still suspicious for dem yelinating disease. DATA REPOSITORY:
[2021-02-06] MEDS: Gadoterate meglumine 20 ML VIAL 19 ML IVP (14:56)
== END 2021-02-06 01:56 ==
PROVIDERS: PCP Nurse Practitioner Adult Health; Visit Provider Nurse Practitioner Adult Health
DX: M47.812 Spondylosis without myelopathy or radiculopathy, cervical region (principal); R20.0 Anesthesia of skin; R20.2 Paresthesia of skin; R93.7 Abnormal findings on diagnostic imaging of other parts of musculoskeletal system; R94.02 Abnormal brain scan
CPT/HCPCS: 70553; 72142

== ENCOUNTER 2021-02-19 07:37 | Outpatient (CLI) | payer BC, SELFPAY ==
[2021-02-19 15:09] LABS: Source Nasal/Nares
[2021-02-19 16:06] LABS: COVID-19 PCR Negative (Negative)
== END 2021-02-19 07:38 | disposition home or self-care (01) ==
PROVIDERS: PCP Nurse Practitioner Adult Health; Visit Provider Nurse Anesthetist, Certified Registered
DX: Z20.822 Contact with and (suspected) exposure to COVID-19 (principal); Z01.818 Encounter for other preprocedural examination; G35 Multiple sclerosis; R06.02 Shortness of breath
CPT/HCPCS: 87635

== ENCOUNTER 2021-02-20 03:06 | Outpatient (CLI) | payer BC, SELFPAY ==
[2021-02-20 07:38] LABS: Abs Immature Grans 0.01 10^3/uL (0.0-0.06); Absolute Basophil Count 0.04 10^3/uL (0.0-0.2); Absolute Eosinophil Count 0.12 10^3/uL (0.0-0.7); Absolute Lymphocyte Count 1.48 10^3/uL (1.2-3.4); Absolute Monocyte Count 0.36 10^3/uL (0.1-0.8); Absolute Neutrophil Count 2.51 10^3/uL (1.2-6.7); Basophils % 0.9; Eosinophils % 2.7; HCT 41.5 % (36.0-46.0); HGB 13.8 g/dL (11.2-15.7); Immature Grans % 0.2; Lymphocytes % 32.7; MCH 28.9 pg (27.0-33.0); MCHC 33.3 % (32.0-36.0); MPV 9.7 fL (8.0-11.0); Neutrophils % 55.5; Nucleated RBC 0 %; Platelet Count 259 10^3/uL (130-400); RBC 4.77 10^6/uL (3.93-5.22); RDW 13.7 % (11.7-14.6); WBC 4.52 10^3/uL (4.4-10.8)
[2021-02-20 08:35] LABS: ALT 27 U/L (14-59); AST 9 U/L (15-37); Albumin 4.3 g/dL (3.4-5.0); Alkaline Phosphatase 83 U/L (46-116); Anion Gap 11.3 mmol/L (3-11); BUN 11 mg/dL (7-18); Bilirubin, Total 0.8 mg/dL (0.2-1.0); CO2 25.7 mmol/L (21.0-32.0); CREATININE 0.9 mg/dL (0.55-1.02); Calcium 9.3 mg/dL (8.5-10.1); Chloride 104 mmol/L (98-107); Glucose 102 mg/dL (74-106); Potassium 4.1 mmol/L (3.5-5.1); Sodium 141 mmol/L (136-145); Total Protein 7.6 g/dL (6.4-8.2)
[2021-02-20 08:55] LABS: Vitamin D 25 Total 60.5 ng/mL (30-100)
[2021-02-21 08:42] LABS: IgA 241 mg/dL (85-499); IgG 1167 mg/dL (610-1,616); IgM 152 mg/dL (35-242)
[2021-02-21 10:40] LABS: Varicella IgG Antibody Positive (See Note)
[2021-02-21 11:55] LABS: HIV-1/2 Ag & Ab Screen Negative (Negative)
[2021-02-21 12:14] LABS: HBs Antibody, Qual Negative (See Note); HBs Antibody, Quant <3.1 mIU/mL (See Note); Hepatitis B Core Antibody Negative (Negative); Hepatitis B surface Ag Negative (Negative); Hepatitis C Ab w Rflx HCV PCR Negative (Negative)
[2021-02-24 15:56] LABS: CSF Bands 13 bands; CSF Olig Bands Interpretation 13 bands (<2); Serum Bands 0 bands
[2021-02-25 07:43] LABS: JC Virus DNA, QN <500 copies/mL; Source PLASMA
== END 2021-02-20 03:07 | disposition home or self-care (01) ==
LOC: LBO 03:07
PROVIDERS: PCP Nurse Practitioner Adult Health; Visit Provider Psychiatry & Neurology Neurology
DX: G35 Multiple sclerosis (principal); R20.2 Paresthesia of skin; Z11.59 Encounter for screening for other viral diseases; Z11.4 Encounter for screening for human immunodeficiency virus [HIV]
CPT/HCPCS: 36415; 80053; 82306; 82784; 86704; 86706; 86787; 86803; 87340; 87389; 87799; 83916; 85025

== ENCOUNTER 2021-02-20 07:32 | Day surgery (SDC) | payer BC, MEDICAID, SELFPAY ==
[2021-02-20 07:50] VITALS: BP 144/86; PULSE 59; RESP 16; TEMP 36.6; O2SAT 94
--- NOTE | 2021-02-20 08:07 | W.ANESPRE ---
General Info Date of Service Date Performed: 02/20/21 Height: 5 ft 5 in Weight: 88.1 kg Body Mass Index (BMI): 32.3 Surgical Procedure: Operation Date: 02/20/21 09:10 Proposed Procedures Side Surgeon p Lumbar Puncture Winnie Multani CRNA Meds Allergies and Home Medications Allergies Allergy/AdvReac Type Severity Reaction Status Date / Time Penicillins Allergy Severe Anaphylaxsi Verified 02/20/21 07:46 s Red wine Allergy Severe Closes up Uncoded 02/20/21 07:46 my airway Home Medication Medication Instructions Recorded albuterol sulfate 90 mcg/actuation 1 - 2 puff INHALATION Q4H PRN #8 gm 02/27/19 aerosol inhaler acetaminophen 1,000 mg PO Q8H PRN #60 tab 03/29/19 multivitamin [Daily Multiple] 1 tab PO DAILY 03/29/19 cholecalciferol (vitamin D3) 50 4,000 unit PO DAILY #90 tab-cap 08/28/19 mcg (2,000 unit) tablet ascorbic acid (vitamin C) 1,000 mg 1,000 mg PO DAILY 08/23/20 tablet coenzyme Q10 75 mg capsule 75 mg PO DAILY 11/18/20 lorazepam 0.5 mg tablet 0.5 - 1 mg PO ONCE PRN #3 tab 02/03/21 PFSH Active Problems Active Problems: Problem Status Onset Code 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 Multiple sclerosis G35 Abnormal MRI, cervical spine R93.7 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 Hand paresthesia R20.2 Lesion of gingiva K06.8 Increased BMI (body mass index) R63.8 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 Normal PFTs & echo. PFT 08/01/15 [facility] Degenerative joint disease of cervical spine MRI c-spine 01/2021 Depression Citalopram with good relief Elevated BP without diagnosis of hypertension TLCs 2020-->May reassess Elevated cholesterol with elevated triglycerides ASCVD score 2.4% (no statin indicated; 2019) History of vitamin D deficiency with +fam h/o osteoporosis--recommend supplementation Hyperlipidemia (06/24/15) ACC/AHA 2012 10-year ASCVD risk = ~2% --> no statin indicated at this time Impaired fasting glucose (06/24/15) 5.9%-->5.5% (2020) Increased BMI (body mass index) Lesion of gingiva Spasmodic dysphonia [facility] ENT Dr. 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 Surgical History Surgical History Josefa's deformity of right heel Status post Achilles debridement and Josefa's resection: 03/29/2019 History of laryngoscopy (09/10/20) [facility] E[facility]-Dr Nolasco Right Achilles tendinitis Status post Achilles debridement and Josefa's resection: 03/29/2019 Tobacco Smoking/Tobacco Use Status: Former Tobacco Use Tobacco: How many years used: 3 Alcohol Alcohol Intake: current Alcohol intake frequency: holidays/special occasions only Alcohol type: wine Substance Use Substance use: Never Substance use type: does not use Vital Signs and Lab Results Vital Signs Most Recent Vital Signs in EMR: Most Recent Vital Signs Temp Pulse Resp BP Pulse Ox 36.6 C 59 L 16 144/86 H 94 02/20/21 07:50 02/20/21 07:50 02/20/21 07:50 02/20/21 07:50 02/20/21 07:50 Lab Results Blood Type / Crossmatch: No Data to Display Complete Blood Count: White Blood Count 4.52 10^3/uL (4.4-10.8) 02/20/21 07:25 02/20/21 Red Blood Count 4.77 10^6/uL (3.93-5.22) 02/20/21 07:02/20/21 Hemoglobin 13.8 g/dL (11.2-15.7) 02/20/21 07:02/20/21 Hematocrit 41.5 % (36.0-46.0) 02/20/21 07:02/20/21 Platelet Count 259 10^3/uL (130-400) 02/20/21 07:02/20/21 Complete Metabolic Panel: No Data to Display Liver Function Panel: No Data to Display Coagulation Panel: No Data to Display Cardiac Panel: No Data to Display Arterial Blood Gas: No Data to Display Venous Blood Gas: No Data to Display Pancreas Panel: No Data to Display Thyroid Panel: No Data to Display Infectious Disease: Coronavirus (COVID-19)(PCR) Negative (Negative) 02/19/21 10:08 02/19/21 Coronavirus 2019 Source Nasal/Nares 02/19/21 10:08 02/19/21 Hepatitis B Surface Antigen Pending 02/20/21 07:02/20/21 Blood Cultures: No Data to Display Toxicology Panel: No Data to Display Anesthesia Assessment and Plan Anesthesia History Personal History: No History of Anesthesia Complications Family History: No Family History of Anesthesia Complications Exercise Tolerance Exercise Tolerance: Metabolic Equivalents>4 Pertinent Negatives Pertinent Negatives: No Major Cardiovascular Symptoms or Complaints Cardiac & Pulmonary Exam Cardiac Exam: Normal S1/S2 Heart Sounds Pulmonary Exam: Clear Bilateral Breath Sounds Airway Exam Known Difficult Airway: No Mallampati Class: 3 Mouth Opening: Normal (> 3cm) Thyromental Distance: Greater than 3 cm Neck Range of Motion: Full ROM Neck Circumference: Normal Teeth Condition: Normal Dentition ASA Classification ASA Score: ASA 2 Emergency Case?: No NPO Status NPO Status: NPO Clears >2 hours, Solids >8 hours Anesthesia Plan Resuscitation Status: Full Code Anesthesia Technique: MAC Anesthesia Airway Planned: Natural Airway Monitors Used: Standard Monitors
[2021-02-20 08:11] VITALS: BMI 32.3
--- NOTE | 2021-02-20 08:27 | W.ANESPROC ---
Lumbar Puncture Date Performed: 02/20/21 Procedure Time: 08:49 Requesting Provider: Sonya Guillaume Procedure Location: Day Surgery Unit Standard Monitors Applied: None Used Patient Position: Sitting Timeout Performed: Yes Sedation Given (Indicate Dose Given): MKO Melt PO Dose:: 1 tab at 0814 Patient Mental Status: Awake Sterility: Hand Hygiene, Surgical Cap, Surgical Mask, Sterile Gloves, Sterile Drape/Sheet and Chlorhexidine Placement Site: L3-L4 Interspace Spinal Needle Type: Alba 22 Gauge Needle Length: 3.5 Inch Lumbar Puncture Procedure: Site Prepped, Sterile Drape Placed, 1% Lidocaine to skin and subcutaneous tissue with 25G needle, Introducer Needle Used, Spinal Needle Placed, Negative Heme, Positive CSF Flow, CSF Specimen placed into Tubes in Sequential Order and Specimen Labeled, Sent to Lab Ultrasound: Not Used Paresthesia: None Number of Previous Attempts by Other Providers: 0 Number of Attempts (See previous attempts in note section): 1 Procedure Tolerated: No Complications and Patient tolerated well Procedure Outcome: Successful Procedure Comment:: MKO melt given at 0814 prior to procedure with good effect. Performed By: Winnie Multani
[2021-02-20 08:53] VITALS: BP 137/94; PULSE 60; RESP 16; TEMP 36.4; O2SAT 93
--- NOTE | 2021-02-20 09:18 | W.ANESPOSTOP ---
Postoperative Evaluation Date, Time and Location Date Performed: 02/20/21 Time Performed: 08:55 Patient Location: Day Surgery Unit Vital Signs Most Recent Imported Vital Signs: Most Recent Vital Signs Temp Pulse Resp BP Pulse Ox 36.4 C L 60 16 137/94 H 93 02/20/21 08:53 02/20/21 08:53 02/20/21 08:53 02/20/21 08:53 02/20/21 08:53 Pain Score Most Recent Pain Score: Most Recent Pain Score Pain Level 0 02/20/21 08:53 Assessment Mental Status: Awake (Alert & Oriented to Patient Baseline) Airway and Respiratory Function: Patent airway with normal (patient baseline) respiratory exam Cardiovascular Function: Hemodynamically Stable Hydration Status: Adequately Hydrated Nausea & Vomiting: No Nausea or Vomiting Pain: Pt. Denies Any Pain Peripheral Nerve Block: Patient did not receive a nerve block Teaching Patient Teaching: Other (Advised to seek medical attention in ER if suffers a persistent headache not resolved with, fluids, caffeine, and rest. )
[2021-02-20 09:28] VITALS: BP 145/84; PULSE 75; RESP 14; TEMP 36.3; O2SAT 93
[2021-02-20 09:30] LABS: Total Protein (CSF) 49 mg/dL (15-45)
[2021-02-20 09:31] LABS: Glucose (CSF) 56 mg/dL (40-70)
[2021-02-20 09:42] LABS: Clarity Clear; Tube # 4
[2021-02-20 09:43] LABS: RBC 0 /mm3 (0-5); WBC 3 /uL (0-5); Xanthochromia Absent
[2021-02-24 10:17] LABS: Albumin, CSF 23.4 mg/dL (<=25.1); Albumin, S 4.5 g/dL (3.4-4.9); IgG Index, CSF 1.22 Index (<=0.84); IgG, S 1174 mg/dL (610-1,616); IgG/Albumin, CSF 0.32 Ratio (<=0.24); Synthesis Rate, CSF 19.29 mg/24hrs (<=8.00)
[2021-02-24 13:34] LABS: IgG, CSF 7.47 mg/dL (<=5.00)
== END 2021-02-20 09:50 | disposition home or self-care (01) ==
PROVIDERS: Psychiatry & Neurology Neurology; PCP Nurse Practitioner Adult Health; Visit Provider Nurse Anesthetist, Certified Registered
PROC: 009U3ZZ Drainage of Spinal Canal, Percutaneous Approach (ICD-10-PCS; CPT 62270; principal; 2021-02-20 09:00)
DX: G35 Multiple sclerosis (principal)
CPT/HCPCS: 62270; 82945; 89050; 89051; 82040; 82042; 82784; 84157; 87070; 87205

== ENCOUNTER 2021-04-17 20:02 | Emergency (ER) | payer MEDICAID, SELFPAY ==
[2021-04-17 20:11] VITALS: BP 137/86; PULSE 65; RESP 14; TEMP 36.7; O2SAT 98
--- NOTE | 2021-04-17 21:01 | ED.GENADUL_ITS ---
Discharge Plan Disposition Patient Disposition: HOME Condition: Stable Discharge Details Clinical Impression: Tick bite Primary Care Provider: Heide Nunn ED Provider: Michi Fabian Home Meds and New Rx's Prescriptions: Continued albuterol sulfate [Ventolin HFA] 90 mcg/actuation HFA aerosol inhaler 1 - 2 puff Inhalation Q4H PRN Qty: 8 RF: 3 cholecalciferol (vitamin D3) [Vitamin D3] 50 mcg (2,000 unit) tablet 4,000 unit PO DAILY Qty: 90 RF: 3 coenzyme Q10 75 mg capsule 75 mg PO DAILY RF: 0 lorazepam 0.5 mg tablet 0.5 - 1 mg PO ONCE PRN (Reason: anxiety) Qty: 3 RF: 0 multivitamin [Daily Multiple] Tablet 1 tab PO DAILY RF: 0 acetaminophen 500 mg tablet 1,000 mg PO Q8H PRN (Reason: pain) Qty: 60 RF: 3 ascorbic acid (vitamin C) [Vitamin C] 1,000 mg tablet 1,000 mg PO DAILY RF: 0 Discharge Instructions Instructions: Tick Bite (ED) Additional Instructions: The head of the tick was removed without difficulty. A single dose of doxycycline was given prophylactically. Please watch for new or worsening symptoms and return to the ER for any concerns. Otherwise I recommend following up with your primary care provider. Discharge Data Discharge Date/Time-TO BE ENTERED AT DEPARTURE: 04/17/21 21:08 Medical Decision Making 60-year-old female presents with a tick bite to her right shoulder, believes that occurred sometime today, is asymptomatic but concerned there still may be a tick in the bite site. Clinically she appears well, nontoxic. Given the uncertainty of timing, will give a single dose of 200 mg p.o. doxycycline but do not believe that a prolonged course is indicated. Using an 11 blade I was able to scrape away the black foreign body. The area is now without a foreign body. Patient tolerated the procedure well. She remains asymptomatic. Area was then dressed with an antibiotic Band-Aid. Patient has no additional questions or concerns and is comfortable with discharge. Standard discharge and return pr ecautions provided. This documentation was generated using xzoopsation system, please disregard any oddities of phrase or misspellings. Medical Records Medical records reviewed: Yes I reviewed the patient's medical records. HPI General Mode of arrival: ambulatory . Date/Time Provider Initiated Documentation: 04/17/21 21:01 . Limitations to Documentation: no limitations . Information obtained by: patient . HPI Narrative: This is a 60-year-old female, past medical history of anxiety, depression, hyperlipidemia, chronic shortness of breath, MS, presenting for a right shoulder tick bite. Patient states that she took a shower this morning did not notice the tick. Noticed a small tick evening attached to her right shoulder, it was not engorged, she removed the tick but feels like the jaw may still be present. She denies any other symptoms. Denies fever, joint pain, rash. Patient has no additional questions or concerns at this time. Related Data Home Medications Medication Instructions Recorded Confirmed albuterol sulfate 90 mcg/actuation 1 - 2 puff INHALATION Q4H PRN #8 gm 02/27/19 04/17/21 aerosol inhaler acetaminophen 1,000 mg PO Q8H PRN #60 tab 03/29/19 04/17/21 multivitamin [Daily Multiple] 1 tab PO DAILY 03/29/19 04/17/21 cholecalciferol (vitamin D3) 50 4,000 unit PO DAILY #90 tab-cap 08/28/19 04/17/21 mcg (2,000 unit) tablet ascorbic acid (vitamin C) 1,000 mg 1,000 mg PO DAILY 08/23/20 04/17/21 tablet coenzyme Q10 75 mg capsule 75 mg PO DAILY 11/18/20 04/17/21 lorazepam 0.5 mg tablet 0.5 - 1 mg PO ONCE PRN #3 tab 02/03/21 04/17/21 Previous Rx's Medication Instructions Recorded albuterol sulfate 90 mcg/actuation 1 - 2 puff INHALATION Q4H PRN #8 gm 02/27/19 aerosol inhaler acetaminophen 1,000 mg PO Q8H PRN #60 tab 03/29/19 lorazepam 0.5 mg tablet 0.5 - 1 mg PO ONCE PRN #3 tab 02/03/21 Allergies Allergy/AdvReac Type Severity Reaction Status Date / Time Penicillins Allergy Severe Anaphylaxsi Verified 04/17/21 20:15 s Red wine Allergy Severe Closes up Uncoded 04/17/21 20:15 my airway General Stated Complaint: AnimalBite CARY: 4 Review of Systems Constitutional Constitutional: Denies fever(s) Musculoskeletal Musculoskeletal: Denies arthralgias Integumentary/Breasts Skin/Breast: Denies erythema PFSH Medical History Abnormal MRI, cervical spine T2 signal foci C3/C4 posterior R cord & C5/C6 anterior L cord (see scanned open MRI reports 01/09/2021) Anxiety Chronic shortness of breath Since 20s Was told it was related to being premature by pulmonology. Normal PFTs & echo. PFT 08/01/15 [facility] Degenerative joint disease of cervical spine MRI c-spine 01/2021 Depression Citalopram with good relief Elevated BP without diagnosis of hypertension TLCs 2020-->May reassess Elevated cholesterol with elevated triglycerides ASCVD score 2.4% (no statin indicated; 2019) History of vitamin D deficiency with +fam h/o osteoporosis--recommend supplementation Hyperlipidemia (06/24/15) ACC/AHA 2012 10-year ASCVD risk = ~2% --> no statin indicated at this time Impaired fasting glucose (06/24/15) 5.9%-->5.5% (2020) Increased BMI (body mass index) Lesion of gingiva Spasmodic dysphonia [facility] ENT Dr. 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 Heart disease CABG x 3 at age 85 Osteoporosis Father , Emphysema at age 77. 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 Pets and animals: Yes Pets and animals: cat(s) and dog(s) Do you think of yourself as: straight/heterosexual Current gender identity: female What is your relationship status?: How often do you talk on the phone with friends or family?: twice per week How often do you get together with friends or relatives?: three or more times per week How often do you attend alevism or islam services?: 1-3 times per year Do you belong to any clubs or organized social groups?: no Panel score (0-1 are the most socially isolated patients): 2 What type of physical activity do you participate in: none and walking Duration: 30-45 minutes/day Frequency: 5-6 times per week Kita/Pentecostalism: Unitarian Universalist Seatbelt use: always Helmet use: Yes 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 Do you feel safe at home: Yes Do you feel safe in your relationship?: Yes Exam Const General: cooperative, healthy appearing, comfortable and no acute distress Orientation: alert and awake [facility] Head: normal to inspection, normocephalic and atraumatic Eyes General: appearance normal, both eyes and all related structures Conjunctivae: conjunctivae normal Neck Neck: normal visual inspection, trachea midline and supple Resp Effort & Inspection: normal respiratory effort and able to speak in complete sentences Skin General skin exam: no rashes or lesions noted Neuro General: patient alert, patient awake, moves all extremities and no focal motor deficits Cognition: normal cognition Speech: speech normal Gait: normal gait Sensory Exam: no sensory deficits noted Extrem General: full ROM and capillary refill normal Shoulder/upper arm images: 1. There is a puncture wound, centrally there appears to be a black foreign body. There is no warmth, erythema, discharge, induration or fluctuance. Area is nontender. No bleeding. Neuro, vascular, tendon intact. Psych Appearance: grossly normal Mental Status: mental status grossly normal Course Vital Signs Vital signs: Vital Signs Temperature 36.7 C 04/17/21 20:11 Pulse 65 04/17/21 20:11 Respiratory Rate 14 04/17/21 20:11 Blood Pressure 137/86 04/17/21 20:11 Pulse Oximetry 98 04/17/21 20:11 Temperature 36.7 C 04/17/21 20:11 Temperature Source Skin 04/17/21 20:11 Pulse 65 04/17/21 20:11 Respiratory Rate 14 04/17/21 20:11 Respiratory Effort Non-Labored 04/17/21 20:16 Blood Pressure 137/86 04/17/21 20:11 Blood Pressure Position Sitting 04/17/21 20:11 Pulse Oximetry 98 04/17/21 20:11 Oxygen Delivery Method Room Air 04/17/21 20:11 Oxygen Flow Rate 0 04/17/21 20:11 Pain Level 0 04/17/21 20:11 Procedures Foreign Body Removal Site: right and upper extremity Description of foreign body: other (tick) Sedation/Analgesia: none Technique: other (11 blade) Confirmed by:: direct visualization Complications: none Neurovascular: normal distal pulse, normal capillary fill, distal light touch sensation intact, distal motor function normal and no signs of compartment syndrome
[2021-04-17] MEDS: Doxycycline Hyclate 100 MG CAP (21:02)
== END 2021-04-17 21:08 | disposition home or self-care (01) ==
PROVIDERS: Emergency Provider Physician Assistant; PCP Nurse Practitioner Adult Health
DX: S40.261A Insect bite (nonvenomous) of right shoulder, initial encounter (principal); W57.XXXA Bitten or stung by nonvenomous insect and other nonvenomous arthropods, initial encounter
CPT/HCPCS: 99283

== ENCOUNTER 2021-06-30 01:54 | Outpatient (CLI) | payer MEDICAID, SELFPAY ==
--- NOTE | 2021-06-30 07:30 | DI.MAMMO_ITS ---
Exam(s) MAMMO SCREENING EXAM: MAMMO SCREENING CLINICAL HISTORY: screening. TECHNIQUE: Bilateral full field digital CC and MLO mammographic images were obtained with 3D tomosyn thesis and utilizing computer aided detection (CAD). COMPARISON: None. This is a baseline mammogram on this 60-year-old patient FINDINGS: No significant radiograph findings in the right breast. The left breast there is asymmetric density possible nodule located laterally on the CC view approxim ately 11 cm in nipple, measuring approximately 7 x 5 millimeters. Spot compression view and ultrasound recommended. There are no malignant-appearing microcalcification groups in either breast There is no significant architectural distortion nor skin thickening-retraction. IMPRESSION: No radiographic evidence of malignancy in the right breast. Left breast nodule. Spot compression view/ultrasound recommended BI-RADS Category 0 - Assessment Incomplete: Need additional imaging evaluation Breast Density - Category B - Scattered areas of fibroglandular density Breast density Category C or D implies that the patient has dense breast tissue. Dense breast tissue can make it harder to find cancer on a mammogram. Dense breast tissue is also associated with an incr eased risk of breast cancer. This information about the result of the mammogram report was provided to the patient to raise their awareness. Use this report when you speak with the patient about their risks for breast cancer, which includes their family history. At that time, you may recommend additional screening tests (Ultrasoun d or MRI) as these tests may add significant information. A negative radiographic report should not delay biopsy if a dominant or clinically suspicious mass is present. Up to ten percent of cancers are not identified on mammography. A negative report may reinforce clinical impression. Adenosis and dense breasts may obscure an underlying neoplasm. False positive reports average 6 to 10%. Patient will receive a letter notifying them of these results.
== END 2021-06-30 02:14 ==
PROVIDERS: PCP Nurse Practitioner Adult Health; Visit Provider Nurse Practitioner Adult Health
DX: Z12.31 Encounter for screening mammogram for malignant neoplasm of breast (principal); R92.8 Other abnormal and inconclusive findings on diagnostic imaging of breast
CPT/HCPCS: 77063; 77067

== ENCOUNTER 2021-07-01 03:59 | Outpatient (CLI) | payer MEDICAID, SELFPAY ==
[2021-07-01 08:40] LABS: Hemoglobin A1C 5.5 % (<5.7)
[2021-07-01 09:07] LABS: ALT 20 U/L (14-59); AST 14 U/L (15-37); Albumin 3.7 g/dL (3.4-5.0); Alkaline Phosphatase 76 U/L (46-116); Anion Gap 7.3 mmol/L (3-11); BUN 12 mg/dL (7-18); Bilirubin, Total 0.8 mg/dL (0.2-1.0); CO2 28.7 mmol/L (21.0-32.0); CREATININE 0.8 mg/dL (0.55-1.02); Calcium 8.7 mg/dL (8.5-10.1); Calculated LDL 111 mg/dL (<100); Chloride 99 mmol/L (98-107); Cholesterol 202 mg/dL (<200); Glucose 89 mg/dL (74-106); HDL Cholesterol 78 mg/dL (40-60); Potassium 4.2 mmol/L (3.5-5.1); Sodium 135 mmol/L (136-145); Total Protein 6.8 g/dL (6.4-8.2); Triglyceride 66 mg/dL (<150); Vitamin B12 536 pg/mL (193-986)
[2021-07-03 00:48] LABS: Vitamin D 25 Total 72.5 ng/mL (30-100)
== END 2021-07-01 04:00 | disposition home or self-care (01) ==
LOC: LBO 03:59
PROVIDERS: PCP Nurse Practitioner Adult Health; Visit Provider Nurse Practitioner Adult Health
DX: E78.2 Mixed hyperlipidemia (principal); G35 Multiple sclerosis; R03.0 Elevated blood-pressure reading, without diagnosis of hypertension; R73.01 Impaired fasting glucose; Z86.39 Personal history of other endocrine, nutritional and metabolic disease
CPT/HCPCS: 36415; 80053; 80061; 82306; 82607; 83036

== ENCOUNTER 2021-07-14 02:06 | Outpatient (CLI) | payer MEDICAID, SELFPAY ==
--- NOTE | 2021-07-14 | DI.MAMMO_ITS ---
Exam(s) MAMMO SCREEN CALL BACK UNI US BREAST LT COMPLETE EXAM: MAMMO SCREEN CALL BACK UNI -LEFT AND COMPLETE LEFT BREAST ULTRASOUND CLINICAL HISTORY: F/U MAMMO,ASYMMETRIC DENSITY, ? NODULE. TECHNIQUE: Unilateral spot mammographic images obtained with 3D tomosynthesisand utilizing computer aided detection (CAD). . Complete LEFT breast Ultrasound was also performed, including all 4 quadrants, the retroareolar regio n, and the ipsilateral axilla. COMPARISON: Prior mammograms were reviewed. This additional imaging was performed due to findings described on the recent BASELINE screening mammogram of 06/30/2021. FINDINGS: Additional mammographic views performed todayare equivocal for the presence of a true nodule at this level. Ultrasound performed today reveals no significant focal findings in all 4 quadrants. This implies th at the nodule seen on the mammogram is most probably benign lymph node.. There is no ipsilateral lef t axillary adenopathy. IMPRESSION: No radiographic evidence of malignancy. Negative complete left breast ultrasound. Findings today suggest that the nodular density seen in the upper outer quadrant of the left breast o n the recent screening mammogram is most probably benign intramammary lymph node. Appropriate follow-up is repeat left breast mammogram in 6 months. The patient was informed of these findings and recommendations prior to leaving the department today. BI-RADS Category 3 - 6 month - Probably Benign Finding: Recommend follow-up mammography in 6 months Breast Density - Category B - Scattered areas of fibroglandular density Breast density Category C or D implies that the patient has dense breast tissue. Dense breast tissue can make it harder to find cancer on a mammogram. Dense breast tissue is also associated with an incr eased risk of breast cancer. This information about the result of the mammogram report was provided to the patient to raise their awareness. Use this report when you speak with the patient about their risks for breast cancer, which includes their family history. At that time, you may recommend additional screening tests (Ultrasoun d or MRI) as these tests may add significant information. A negative radiographic report should not delay biopsy if a dominant or clinically suspicious mass is present. Up to ten percent of cancers are not identified on mammography. A negative report may reinforce clinical impression. Adenosis and dense breasts may obscure an underlying neoplasm. False positive reports average 6 to 10%. Patient will receive a letter notifying them of these results.
== END 2021-07-14 02:26 ==
PROVIDERS: PCP Nurse Practitioner Adult Health; Visit Provider Nurse Practitioner Adult Health
DX: Z12.31 Encounter for screening mammogram for malignant neoplasm of breast (principal); R92.8 Other abnormal and inconclusive findings on diagnostic imaging of breast; N60.82 Other benign mammary dysplasias of left breast
CPT/HCPCS: 76642; 77063; 77067

== ENCOUNTER 2021-10-11 19:28 | Emergency (ER) | payer MEDICAID, SELFPAY ==
[2021-10-11 19:32] VITALS: BP 134/80; PULSE 83; RESP 18; TEMP 36.7; O2SAT 98
--- NOTE | 2021-10-11 19:41 | W.ED.GENAD ---
Discharge Plan Disposition Patient Disposition: HOME Condition: Stable Discharge Details Clinical Impression: Tick bite Primary Care Provider: Heide Nunn ED Provider: Paras Tripathi Home Meds and New Rx's Prescriptions: Continued cholecalciferol (vitamin D3) [Vitamin D3] 50 mcg (2,000 unit) tablet 5,000 unit PO DAILY Qty: 90 3RF coenzyme Q10 75 mg capsule 200 mg PO DAILY 0RF gotu sadia (Centella asiatica) 441 mg capsule 1 cap PO DAILY 0RF Rx Instructions: 450 m,g daily ginkgo biloba 40 mg tablet 60 mg PO TID 0RF Rx Instructions: give with meal/snack magnesium glycinate 100 mg tablet 300 mg PO DAILY 0RF multivitamin [Daily Multiple] Tablet 1 tab PO DAILY 0RF acetaminophen 500 mg tablet 1,000 mg PO Q8H PRN (Reason: pain) Qty: 60 3RF ascorbic acid (vitamin C) [Vitamin C] 1,000 mg tablet 1,000 mg PO DAILY 0RF Discharge Instructions Instructions: Tick Bite (ED) Additional Instructions: Please perform daily tick checks after working in the outdoors. You were given a single 200 mg dose of doxycycline as empiric one-time treatment for probable Lyme disease exposure. Continue your routine medications. Return to the ER for any acute concerns Medical Decision Making 60-year-old female presents with a right lower anterior abdominal wall engorged tick bite that she removed at home and then brought for evaluation. This does appear to be a deer tick. I discussed with her single one-time dose of 200 mg of doxycycline given probable exposure to Lyme disease. Patient agreed to this, the medication was administered, and she was discharged to home. HPI General Mode of arrival: ambulatory. Date/Time Provider Initiated Documentation: 10/11/21 19:28. Limitations to Documentation: no limitations. Information obtained by: patient. History of Present Illness 60 year old F presents to the emergency department with the chief complaint of Tick bite right lower anterior abdomen, described as mild, Quality is described as constant, and is localized to the abdomen. Patient started experiencing this day(s) improves with No relieving factors improve symptom(s), No exacerbating factors reported . Patient notes denies fever/chills. Patient did receive the following treatments prior to arrival, none Related Data Home Medications Medication Instructions Recorded Confirmed acetaminophen 500 mg tablet 1,000 mg PO Q8H PRN #60 tab 03/29/19 09/15/21 multivitamin (Daily Multiple) 1 tab PO DAILY 03/29/19 09/15/21 ascorbic acid (vitamin C) 1,000 mg 1,000 mg PO DAILY 08/23/20 09/15/21 tablet (Vitamin C) cholecalciferol (vitamin D3) 50 5,000 unit PO DAILY #90 tab-cap 09/15/21 09/15/21 mcg (2,000 unit) tablet (Vitamin D3) coenzyme Q10 75 mg capsule 200 mg PO DAILY cap 09/15/21 09/15/21 ginkgo biloba 40 mg tablet 60 mg PO TID tab 09/15/21 09/15/21 gotu sadia (Centella asiatica) 441 1 cap PO DAILY cap 09/15/21 09/15/21 mg capsule magnesium glycinate 100 mg tablet 300 mg PO DAILY tab 09/15/21 09/15/21 Previous Rx's Medication Instructions Recorded acetaminophen 500 mg tablet 1,000 mg PO Q8H PRN #60 tab 03/29/19 Allergies Allergy/AdvReac Type Severity Reaction Status Date / Time Penicillins Allergy Severe Anaphylaxsi Verified 09/15/21 11:21 s Red wine Allergy Severe Closes up Uncoded 09/15/21 11:21 my airway General Stated Complaint: Cellulitis CARY: 4 Review of Systems Narrative: Tick was removed. Patient has otherwise been well. No other complaints PFSH All Active Problems Tick bite (Acute) Category 3 mammography result with short follow-up interval suggested for probably benign finding (Acute ~07/2021) F/U L breast U/S 6m (01/2022) Pulmonary nodule (Acute ~05/2021) 2 nodules, sub 5mm in size. Per chest CT, [facility] 05/2021. 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 Muscle tension dysphonia (Chronic) Per [facility] ENT note from 02/18/21 Multiple sclerosis (Chronic) Relapsing remitting multiple sclerosis per [facility] Neurology note from 04/11/21 Degenerative joint disease of cervical spine (Chronic) MRI c-spine 01/2021 Increased BMI (body mass index) (Acute) Elevated BP without diagnosis of hypertension (Chronic) TLCs 2020-->May reassess Elevated cholesterol with elevated triglycerides (Chronic) ASCVD score 2.4% (no statin indicated; 2019) Stress and adjustment reaction (Chronic) Work History of vitamin D deficiency (Chronic) with +fam h/o osteoporosis--recommend supplementation Impaired fasting glucose (Chronic 06/24/15) 5.9%-->5.5% (2020) Uncomplicated asthma (Chronic 08/14/15) PFTs 08/03/15 Medical History Abnormal MRI, cervical spine T2 signal foci C3/C4 posterior R cord & C5/C6 anterior L cord (see scanned open MRI reports 01/09/2021) Anxiety Chronic shortness of breath Since 20s Was told it was related to being premature by pulmonology. Normal PFTs & echo. 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 Heart disease CABG x 3 at age 85 Osteoporosis Father , Emphysema at age 77. 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 Pets and animals: Yes Pets and animals: cat(s) and dog(s) Do you think of yourself as: straight/heterosexual Current gender identity: female What is your relationship status?: How often do you talk on the phone with friends or family?: twice per week How often do you get together with friends or relatives?: three or more times per week How often do you attend buddhist or hoahaoism services?: 1-3 times per year Do you belong to any clubs or organized social groups?: no Panel score (0-1 are the most socially isolated patients): 2 What type of physical activity do you participate in: none and walking Duration: 30-45 minutes/day Frequency: 5-6 times per week Kita/Mandaen: Unitarian Universalist Seatbelt use: always Helmet use: Yes Drive 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 Pleasant, well groomed, interactive. HEAD: Normocephalic, atraumatic ENT: Mucous membranes moist, oropharynx unremarkable, External ear exam unremarkable EYES: PERRL, EOMI CHEST/RESP: No respiratory distress Abdomen: Soft, there is a discrete area of erythema with central bite shala measuring approximately 1 cm diameter on the right lower anterior abdominal wall. No fluctuance or tenderness EXT: Full ROM, no edema, no rash Neuro: Grossly normal neurologic exam, conversant, interactive. Psych: Speech fluent, thoughts congruent, affect normal Course Vital Signs Vital signs: Vital Signs Temperature 36.7 C 10/11/21 19:32 Pulse 83 10/11/21 19:32 Respiratory Rate 18 10/11/21 19:32 Blood Pressure 134/80 10/11/21 19:32 Pulse Oximetry 98 10/11/21 19:32 Temperature 36.7 C 10/11/21 19:32 Temperature Source Tympanic 10/11/21 19:32 Pulse 83 10/11/21 19:32 Respiratory Rate 18 10/11/21 19:32 Respiratory Effort 05/07/22 19:35 Blood Pressure 134/80 10/11/21 19:32 Blood Pressure Position Supine 10/11/21 19:32 Pulse Oximetry 98 10/11/21 19:32 Oxygen Delivery Method Room Air 10/11/21 19:32 Oxygen Flow Rate 0 10/11/21 19:32 Pain Level 0 10/11/21 19:32
[2021-10-11] MEDS: Doxycycline Hyclate 100 MG CAP 200 MG PO (19:44)
== END 2021-10-11 19:43 | disposition home or self-care (01) ==
LOC: ER 19:47
PROVIDERS: Emergency Provider Emergency Medicine; PCP Nurse Practitioner Adult Health
DX: S30.861A Insect bite (nonvenomous) of abdominal wall, initial encounter (principal); W57.XXXA Bitten or stung by nonvenomous insect and other nonvenomous arthropods, initial encounter
CPT/HCPCS: 99283

== ENCOUNTER 2021-11-10 03:29 | Outpatient (CLI) | payer MEDICAID, SELFPAY | END 2021-11-10 03:30 | disposition home or self-care (01) | PROVIDERS: PCP Nurse Practitioner Adult Health; Visit Provider Nurse Practitioner Adult Health ==

== ENCOUNTER → 2022-01-06 02:18 | Outpatient (CLI) | payer MEDICAID, SELFPAY ==
--- NOTE | 2022-01-06 07:00 | DI.MAMMO_ITS ---
Exam(s) MAMMO DIAGNOSTIC UNI EXAM: MAMMO DIAGNOSTIC UNI CLINICAL HISTORY: 6m. F/U, F/U ABNL mammo L breast,R92.8. TECHNIQUE: Craniocaudal and mediolateral oblique Full Field Digital Mammography views of the left br east with Computer Aided Diagnosis followed by Tomosynthesis. COMPARISON: Comparison is made with prior examinations. FINDINGS: Mammography/Tomosynthesis: Masses/Architectural Distortion: None seen. Microcalcifictions: No suspicious pleomorphic-type are seen. Skin Thickening/Nipple Retraction: None. IMPRESSION: 1. No evidence of malignancy is noted. 2. Unless there is more urgent need, follow-up screening mammography is recommended, as per [employer] guidelines. 3. The findings were discussed with the patient on the date of the examination. BI-RADS Category 1 - Negative Breast Density - Category B - Scattered areas of fibroglandular density Breast density Category C or D implies that the patient has dense breast tissue. Dense breast tissue can make it harder to find cancer on a mammogram. Dense breast tissue is also associated with an incr eased risk of breast cancer. This information about the result of the mammogram report was provided to the patient to raise their awareness. Use this report when you speak with the patient about their risks for breast cancer, which includes their family history. At that time, you may recommend additional screening tests (Ultrasoun d or MRI) as these tests may add significant information. A negative radiographic report should not delay biopsy if a dominant or clinically suspicious mass is present. Up to ten percent of cancers are not identified on mammography. A negative report may reinforce clinical impression. Adenosis and dense breasts may obscure an underlying neoplasm. False positive reports average 6 to 10%. Patient will receive a letter notifying them of these results.
== END ==
PROVIDERS: PCP Nurse Practitioner Adult Health; Visit Provider Nurse Practitioner Adult Health
DX: R92.8 Other abnormal and inconclusive findings on diagnostic imaging of breast (principal)
CPT/HCPCS: 77061; 77065; G0279

== ENCOUNTER 2022-02-04 02:37 | Outpatient (CLI) | payer MEDICAID, SELFPAY ==
[2022-02-04 07:53] LABS: Hemoglobin A1C 5.8 % (<5.7)
[2022-02-04 08:27] LABS: Calculated LDL 107 mg/dL (<100); Cholesterol 201 mg/dL (<200); HDL Cholesterol 78 mg/dL (40-60); TSH (W/Ref FT4) 2.06 uIU/mL (0.36-3.74); Triglyceride 80 mg/dL (<150)
== END 2022-02-04 02:38 | disposition home or self-care (01) ==
LOC: LBO 02:37
PROVIDERS: PCP Nurse Practitioner Adult Health; Visit Provider Nurse Practitioner Adult Health
DX: R73.01 Impaired fasting glucose (principal); E03.8 Other specified hypothyroidism; F43.29 Adjustment disorder with other symptoms; R03.0 Elevated blood-pressure reading, without diagnosis of hypertension
CPT/HCPCS: 36415; 80061; 83036; 84443

== ENCOUNTER → 2022-04-02 03:08 | Outpatient (CLI) | payer MEDICAID, SELFPAY ==
--- NOTE | 2022-04-02 08:45 | DI.DEXA_ITS ---
Exam(s) XR DEXA BONE DENSITY W/WO NOA EXAM: XR DEXA BONE DENSITY W/WO NOA CLINICAL HISTORY: screening FOR OSTEOPOROSIS; fam hx osteoporosis,POSTMENOPAUSAL,Z78.0 TECHNIQUE: COMPARISON: No exams were available for comparison FINDINGS: Lateral Spine Image: Unremarkable. No compression deformities identified. Left hip: Total T-Score: -0.5 Total Z-Score: 0.5 T- and Z-scores: Within normal limits. Lumbar Spine: Total T-Score: -0.2 Total Z-Score: 1.3 T- and Z-scores: Within normal limits. IMPRESSION: No evidence of osteoporosis.
== END ==
PROVIDERS: PCP Nurse Practitioner Adult Health; Visit Provider Nurse Practitioner Adult Health
DX: Z13.820 Encounter for screening for osteoporosis (principal); Z78.0 Asymptomatic menopausal state; Z82.62 Family history of osteoporosis
CPT/HCPCS: 77080

== ENCOUNTER 2022-07-23 16:24 | Outpatient (REF) | payer MEDICAID, SELFPAY ==
[2022-07-25 11:17] LABS: COVID-19 RT-PCR UVMMC Result Negative (Negative)
== END 2022-07-23 16:25 | disposition home or self-care (01) ==
LOC: LBN 16:24
PROVIDERS: PCP Nurse Practitioner Adult Health; Visit Provider Physician Assistant Medical
DX: J02.9 Acute pharyngitis, unspecified (principal)
CPT/HCPCS: U0003; 87081

== ENCOUNTER 2022-10-12 03:01 | Outpatient (CLI) | payer MEDICAID, SELFPAY ==
[2022-10-12 08:50] LABS: Abs Immature Grans 0.02 10^3/uL (0.0-0.06); Absolute Basophil Count 0.06 10^3/uL (0.0-0.2); Absolute Eosinophil Count 0.13 10^3/uL (0.0-0.7); Absolute Lymphocyte Count 1.62 10^3/uL (1.2-3.4); Absolute Monocyte Count 0.34 10^3/uL (0.1-0.8); Absolute Neutrophil Count 2.12 10^3/uL (1.2-6.7); Basophils % 1.4; HCT 42.3 % (36.0-46.0); HGB 14.1 g/dL (11.2-15.7); Immature Grans % 0.5; Lymphocytes % 37.8; MCH 30.1 pg (27.0-33.0); MCHC 33.3 % (32.0-36.0); MCV 90 fL (80-95); MPV 9.6 fL (8.0-11.0); Monocytes % 7.9; Neutrophils % 49.4; Platelet Count 213 10^3/uL (130-400); RBC 4.68 10^6/uL (3.93-5.22); RDW 13.2 % (11.7-14.6); RDW-SD 43.5 fL; WBC 4.29 10^3/uL (4.4-10.8)
[2022-10-12 09:07] LABS: Hemoglobin A1C 5.5 % (<5.7)
[2022-10-12 10:09] LABS: ALT 25 U/L (14-59); AST 17 U/L (15-37); Albumin 3.7 g/dL (3.4-5.0); Alkaline Phosphatase 82 U/L (46-116); Anion Gap 8.8 mmol/L (3-11); BUN 17 mg/dL (7-18); Bilirubin, Total 0.5 mg/dL (0.2-1.0); CO2 29.2 mmol/L (21.0-32.0); CREATININE 0.8 mg/dL (0.55-1.02); Calcium 8.9 mg/dL (8.5-10.1); Calculated LDL 123 mg/dL (<100); Chloride 102 mmol/L (98-107); Cholesterol 219 mg/dL (<200); Folate 11.5 ng/mL (8.6-20.0); Glucose 99 mg/dL (74-106); HDL Cholesterol 78 mg/dL (40-60); Magnesium 1.8 mg/dL (1.8-2.4); Sodium 140 mmol/L (136-145); TSH (W/Ref FT4) 1.47 uIU/mL (0.36-3.74); Total Protein 7.4 g/dL (6.4-8.2); Triglyceride 92 mg/dL (<150); Vitamin B12 502 pg/mL (193-986)
[2022-10-12 10:51] LABS: Vitamin D 25 Total 65.2 ng/mL (30-100)
== END 2022-10-12 03:02 | disposition home or self-care (01) ==
LOC: LBO 03:01
PROVIDERS: PCP Nurse Practitioner Adult Health; Visit Provider Nurse Practitioner Adult Health
DX: R73.01 Impaired fasting glucose (principal); G35 Multiple sclerosis; R53.83 Other fatigue; Z13.1 Encounter for screening for diabetes mellitus; Z13.220 Encounter for screening for lipoid disorders; Z13.29 Encounter for screening for other suspected endocrine disorder; Z79.899 Other long term (current) drug therapy
CPT/HCPCS: 36415; 80053; 80061; 82306; 82607; 82746; 83036; 83735; 84443; 85025

== ENCOUNTER → 2023-02-15 01:00 | Outpatient (CLI) | payer BC, SELFPAY ==
--- NOTE | 2023-02-15 06:30 | DI.MAMMO_ITS ---
Exam(s) MAMMO SCREENING EXAM: MAMMO SCREENING CLINICAL HISTORY: screening,z12.39. TECHNIQUE: Bilateral full field digital CC and MLO mammographic images were obtained with 3D tomosyn thesis and utilizing computer aided detection (CAD). COMPARISON: Prior mammograms were reviewed. FINDINGS: Small benign-appearing nodule laterally in the left breast again noted has appearance of benign intra mammary lymph node. There are no new spiculated masses nor malignant appearing microcalcification groups in either breast . There is no significant architectural distortion nor skin thickening-retraction. IMPRESSION: Stable benign findings. No radiographic evidence of malignancy. BI-RADS Category 2 - Benign Findings Breast Density - Category B - Scattered areas of fibroglandular density Breast density Category C or D implies that the patient has dense breast tissue. Dense breast tissue can make it harder to find cancer on a mammogram. Dense breast tissue is also associated with an incr eased risk of breast cancer. This information about the result of the mammogram report was provided to the patient to raise their awareness. Use this report when you speak with the patient about their risks for breast cancer, which includes their family history. At that time, you may recommend additional screening tests (Ultrasoun d or MRI) as these tests may add significant information. A negative radiographic report should not delay biopsy if a dominant or clinically suspicious mass is present. Up to ten percent of cancers are not identified on mammography. A negative report may reinforce clinical impression. Adenosis and dense breasts may obscure an underlying neoplasm. False positive reports average 6 to 10%. Patient will receive a letter notifying them of these results.
== END ==
PROVIDERS: PCP Nurse Practitioner Adult Health; Visit Provider Nurse Practitioner Adult Health
DX: Z12.31 Encounter for screening mammogram for malignant neoplasm of breast (principal)
CPT/HCPCS: 77063; 77067

== ENCOUNTER → 2023-02-23 02:14 | Outpatient (CLI) | payer BC, SELFPAY ==
--- NOTE | 2023-02-23 06:33 | ETT_ITS ---
APPROVED REPORT Exam: Exercise Treadmill Patient Location: Out-Patient Room/Bed: Stress Nurse: Mya Choi RN Ordering Provider:LAY POSADAS, Contact Number: [phone] BMI: 29.45 Baseline Rhythm: Sinus Rhythm Indications: Shortness of breath Medical History Medical History: Chronic SOB, COVID, DJD, spinal lesions, elevated BP w/o dx of HTN, ?asthma, vit D d ef., MS, leukopenia Cardiac Medications: None Allergies: Penicillins, red wine Cardiac Risk Factors: +family history, history of smoking (quit 30 years ago) Previous Cardiac Procedures: None Pretest Chest Pain Characteristics: None Exercise History: Indeterminate Physical Disabilities: None Lung Sounds: LCTA Heart Sounds: Regular, s1/s2 Stress Test Details Test: Exercise stress testing was performed using a Michael protocol. Rest Stress HR Resting HR Supine: 61 bpm Max Heart Rate (APMHR): 159 bpm Resting HR Standin bpm Target HR (85% APMHR): 135 bpm Max HR Achieved: 141 bpm % of APMHR: 89 Recovery HR: 69 bpm HR response to stress: Normal HR response to stress BP Resting BP Supine: 185/92 mmHg Resting BP Standin/90 mmHg Max BP: 172/90 mmHg Recovery BP: 140/80 mmHg BP response to stress: Normal blood pressure response to stress. ECG Resting ECG: Sinus Rhythm Ectopy: None Stress ECG: Sinus Tachycardia ST Change: No significant ST segment changes noted Arrhythmia: Rare PVC Recovery ECG: Sinus Rhythm Recovery ST Change: No significant ST segment changes noted Recovery Arrhythmia: None Clinical Reason for Termination: Fatigue, Target HR Achieved Stress Symptoms: Dyspnea, General Fatigue Exercise duration: 6 min27 sec Highest Stage Reached: Stage 3: 3.4 mph at 14% grade. Exercise capacity: 7.73 METs Angina Score: None Aguayo Treadmill Score: 5.7 Rate Pressure Product: [id number] Stress ECG Conclusion 1. Resting electrocardiogram was within normal limits 2. Patient exercised on the Michael protocol and completed a workload of 7.73 METS 3. Normal heart rate and blood pressure response to exercise. The patient achieved 89% of predicted heart rate for age 4. There was no electrocardiographic evidence of myocardial ischemia 5. There were no significant dysrhythmias Aguayo Treadmill Score is 5.7 which is Low risk. Stress Test Summary STAGE Time (mins) Speed (mph) Grade (%) HR BP SpO2 SYMPTOMS METS Supine 61 158/92 Standing 74 134/90 98% 1 3 1.7 10 105 172/90 4.5 2 6 2.5 12 132 178/90 95% 7 3 9 3.4 14 141 10 1 min recovery 124 164/80 96%, mild shortness of breath 3 min recovery 77 152/80 97% 6 min recovery 69 140/80 98%
== END ==
PROVIDERS: PCP Nurse Practitioner Adult Health; Visit Provider Nurse Practitioner Adult Health
DX: R06.02 Shortness of breath (principal)
CPT/HCPCS: 93017

== ENCOUNTER 2023-04-06 03:55 | Outpatient (CLI) | payer BC, SELFPAY ==
[2023-04-06 13:12] LABS: BE 2 mmol/L (-2-3); HCO3 26 mmol/L (22-26); pCO2 40 mmHg (35-45); pH 7.42 (7.35-7.45); pO2 90 mmHg (80-105); sO2 98 % (95-98); tCO2 23 mmol/L (23-27)
[2023-04-06 13:15] LABS: FIO2L ROOM AIR L; Site Left Radial
== END 2023-04-06 03:56 | disposition home or self-care (01) ==
LOC: RT 03:55
PROVIDERS: PCP Nurse Practitioner Adult Health; Visit Provider Student in an Organized Health Care Education/Training Program
DX: G35 Multiple sclerosis (principal); R06.02 Shortness of breath
CPT/HCPCS: 82805; 94726; 94729; 36600; 94010

== ENCOUNTER → 2023-05-17 02:34 | Outpatient (CLI) | payer BC, SELFPAY ==
--- NOTE | 2023-05-17 08:00 | DI.US_ITS ---
APPROVED REPORT EXAM: Comprehensive 2D, Doppler, and color-flow Echocardiogram Patient Location: Out-Patient [facility] Stained Glass: Vannesa Santacruz RDCS (AE) Indications: SOB with sensation cardiac blood flow, H/O MVP Other Information Study Quality: Good Conclusion Normal left ventricular wall thickness and chamber size. Ejection fraction is 60 to 65%. Wall motio n is normal Normal right ventricular size and systolic function Both atria are normal in size There is no structural or hemodynamically significant valvular disease Borderline dilated aortic root and ascending aorta Wall motion Left Ventricle The left ventricle is normal size. The left ventricular systolic function is normal. The left ventric ular ejection fraction is within the normal range. There is normal left ventricular wall thickness. T here is normal LV segmental wall motion. Left ventricular filling pattern is normal for age. There is no ventricular septal defect visualized. LVEF is 60-65%. Right Ventricle The right ventricle is normal size. The right ventricular systolic function is normal. Atria The left atrium size is normal. The right atrium size is normal. The interatrial septum is intact wit h no evidence for an atrial septal defect. Aortic Valve The aortic valve is normal in structure. Aortic valve is trileaflet. There is no aortic valvular sten osis. Mitral Valve The mitral valve is normal in structure. No evidence of mitral valve stenosis. Trace to mild mitral regurgitation. Mild mitral valve prolapse. Tricuspid Valve The tricuspid valve is normal in structure. There is no tricuspid valve stenosis. Trace tricuspid reg urgitation. Unable to assess PA pressure. Pulmonic Valve The pulmonary valve is normal in structure. There is no pulmonic valvular stenosis. Trace pulmonic re gurgitation. Great Vessels Aortic root is mildly dilated. The ascending aorta is mildly dilated. Aortic arch is normal in calib er. IVC is normal in size and collapses >50% with inspiration. Pericardium There is no pericardial effusion. 2D Dimensions IVSD d PLAX 0.91 cm F: 0.6-1.0 Ao Root d 3.59 cm F: 2.7 - 3.3 LVPW d PLAX 0.88 cm F: 0.6 - 1.0 Ao Asc Diam d 3.49 cm F: 2.3 - 3.1 LVID d PLAX 5.01 cm F: 3.8 - 5.2 LVDs 3.24 cm F: 2.2 - 3.5 LV EF Teichholz 64.4 % FS 35.26 % LV EDV (Teich) 118.9 mL LV ESV (Teich) 42.4 mL M-Mode TAPSE 2.05 cm (M/F) >1.7 Auto EF LV EDV A4C 133.0 mL LV EDV A2C 156.7 mL LV EDV BP 144.8 mL LV ESV A4C 58.9 mL LV ESV A2C 54.7 mL LV ESV BP 55.6 mL LVEF(%) A4C 55.7 % LVEF(%) A2C 65.1 % LVEF(%) BP 61.6 % LV SV A4C 74.1 ml LV SV A2C 102.0 ml LV SV BP 89.2 ml LV CO A4C 4.1 L/min LV CO A2C 5.1 L/min LV CO BP 4.6 L/min HR A4C 54.88 BPM HR A2C 50.42 BPM LV EDV Index (BP) LV Strain Long Pk Overal Avg (s) 21.59 LA Volume LA Length A4C 5.8 cm LA Length A2C 5.9 cm LA Area A4C s 20.77 cm2 LA Area A2C s 18.47 cm2 LA Vol A4C A-L 62.81 mL LA Vol A2C A-L 48.76 mL LA Vol Biplane A-L 55.8 mL LA Vol/BSA A4C A-L LA Vol/BSA A2C A-L LA Vol/BSA BP A-L 29.5 mL/m2 LA Vol A4C MOD 59.4 mL LA Vol A2C MOD 47.6 mL LA Vol BP MOD 53.5 mL RA Volume RA Area A4C 13.0 cm2 RA ESV A4C (A-L) 32.2mL RA Vol/BSA A4C A-L RA Length A4C 4.5 cm RA ESV A4C (MOD) 30.6mL LV Diastology MV E' medial 0.041 (>0.07 m/s) MV E Vmax 0.59 (0.4-1.3 m/s) MV E/E' MED 14.16 (<14) MV A Vmax 0.90 (0.4-1.3 m/s) MV E' lateral 0.069 (>0.1 m/s) E/A Ratio 0.7 MV E/E' LAT 8.49 (<14) MV E' Average 0.055 m/s MV E/E'(average) 10.61 Aortic Valve AoV Vmax 1.65 m/s LVOT Vmax 1.21 m/s AoV Peak Grad 10.9 mmHg LVOT Peak Grad 5.8 mmHg AoV Area (Vmax) 2.28 cm2 LVOT VTI 0.284 m AoV VTI 0.375 m LVOT Mean Grad 3.1 mmHg AoV Mean Graeme. 1.12 m/s LVOT SV 88.44 mL AoV Mean Grad 5.8 mmHg LVOT Diam s 1.95 cm AoV Area (VTI) 2.36 cm2 Velocity Ratio 0.73 Mitral Valve MV DT 263 (160-240 msec) MV Vmax TIPS 0.88 m/s MV Mean Grad 1.1 (<2mmHg) MV VTI 0.347 m Pulmonary Valve PV Vmax 0.81 (0.5-1.5 m/s) RVOT Vmax 0.55 m/s PV Peak Grad 2.6 mmHg RVOT Peak Gr. 1.2 mmHg PV Mean Graeme 0.54 m/s RVOT VTI 0.123 m PV Mean Grad 1.4 mmHg RVOT Mean Gr. 0.7 mmHg Tricuspid Valve RA Pressure 3.00 mmHg TV S' 0.15 m/s
== END ==
PROVIDERS: PCP Nurse Practitioner Adult Health; Visit Provider Nurse Practitioner Adult Health
DX: R06.02 Shortness of breath (principal); Z86.79 Personal history of other diseases of the circulatory system
CPT/HCPCS: 93306

== ENCOUNTER 2023-05-22 09:33 | Emergency (ER) | payer OTHER, BC, SELFPAY ==
[2023-05-22 09:35] VITALS: BP 153/97; PULSE 85; RESP 18; TEMP 36.5; O2SAT 100
--- NOTE | 2023-05-22 09:45 | DI.RAD_ITS ---
Exam(s) XR CERVICAL SP GASPAR TRAUMA 2-3V EXAM: XR CERVICAL SP GASPAR TRAUMA 2-3V CLINICAL HISTORY: fall. TECHNIQUE: 2D digital imaging was performed. Four images were obtained. COMPARISON: CR XR CERVICAL SPINE COMP 4-5V from 11/27/2020 FINDINGS: BONES: No fracture or destructive lesion. There are degenerative changes present throughout the cervi sherrie spine. DISKS: There is disc space narrowing seen at C5-6 and C6-C7. ALIGNMENT: Cervical spinal alignment is within normal limits. The odontoid and atlantoaxial articulat ions are normal. SOFT TISSUE: Normal. The lung apices are clear. IMPRESSION: No acute fracture or subluxation in the cervical spine. DATA REPOSITORY: RADIATION DOSE DELIVERED:
--- NOTE | 2023-05-22 09:45 | DI.CT_ITS ---
Exam(s) CT LUMBAR SPINE SI JOINTS WO EXAM: CT LUMBAR SPINE SI JOINTS WO CLINICAL HISTORY: fall, significant coccyx pain. TECHNIQUE: Imaging Protocol: Axial computed tomography images with coronal and sagittal reformatted images were created and reviewed. COMPARISON: No exams were available for comparison FINDINGS: Bones: There is a transverse fracture at the sacrococcygeal junction with mild angulation of the frac ture noted. No large paraspinal hematoma. No other fractures identified. The alignment of the spin e is normal including the thoracolumbar junction. Degenerative changes are seen in the lumbar spine. Soft tissues: There is diverticulosis of the colon without evidence of acute diverticulitis. There i s a 3.2 cm right adnexal cystic lesion present. It is incompletely imaged on this examination. It m ay be ovarian in origin. There is a small hiatal hernia. IMPRESSION: 1. Acute fracture at the sacrococcygeal junction with mild angulation of the fracture. 2. 3.2 cm right adnexal cystic lesion which is likely ovarian. Nonemergent thyroid ultrasound may be obtained. 3. Findings were discussed with Aguilar Santoyo at 3:52 p.m. on 05/22/2023. RADIATION DOSE DELIVERED: Total DLP Total DLP DATA REPOSITORY: All CT scans at this facility are submitted to the National Radiology Data Registry (NRDR) Dose Index Registry (DIR) with the [employer] ([employer]). RADIATION OPTIMIZATION: All CT scans at this facility use at least one of these dose optimization te chniques: automated exposure control; mA and/or kV adjustment per patient size (includes targeted exa ms where dose is matched to clinical indication); or iterative reconstruction.
--- NOTE | 2023-05-22 09:45 | DI.RAD_ITS ---
Exam(s) XR THORACIC SPINE COMPLETE EXAM: XR THORACIC SPINE COMPLETE CLINICAL HISTORY: fall. TECHNIQUE: 2D digital imaging was performed of the thoracic spine. Three views were obtained. AP, swimmer's and lateral views were obtained. COMPARISON: CR CHEST 2 VIEWS PA,LAT from 08/01/2015 FINDINGS: BONES: There is no fracture or destructive lesion. There are [id number] degenerative changes pr esent throughout the thoracic spine. DISKS:There is a mild right convex curvature in the midthoracic spine. Disc space narrowing is seen in the midthoracic spine. SOFT TISSUE: Visualized lungs are clear. IMPRESSION: No acute fracture or subluxation. DATA REPOSITORY: RADIATION DOSE DELIVERED:
--- NOTE | 2023-05-22 10:01 | W.ED.GENAD ---
Discharge Plan Disposition Patient Disposition: Home Discharge Details Clinical Impression: Hand sprain, Back pain due to injury Primary Care Provider: Heide Nunn ED Provider: Aguilar Santoyo Home Meds and New Rx's Prescriptions: Continued cholecalciferol (vitamin D3) [Vitamin D3] 50 mcg (2,000 unit) tablet 5,000 unit PO DAILY Qty: 90 coenzyme Q10 75 mg capsule 200 mg PO DAILY PRN magnesium glycinate 100 mg tablet 300 mg PO DAILY loratadine 10 mg tablet 10 - 20 mg PO DAILY Qty: 40 0RF Hold Instructions: Pt Stopped/Never Started Rx Instructions: body inflammation/rash--take 1 - 2tabs daily for 14 d, may repeat x1 acetaminophen 500 mg tablet 1,000 mg PO Q8H PRN (Reason: pain) Qty: 60 3RF ascorbic acid (vitamin C) [Vitamin C] 1,000 mg tablet 1,000 mg PO DAILY PRN multivitamin [Daily Multiple] Tablet 1 tab PO DAILY PRN Discharge Instructions Instructions: Back Pain (ED) Additional Instructions: You may perform activities as tolerated by pain and discomfort. Continue to take the [id number] acetaminophen as discussed along with the provided Voltaren gel 3 times daily as needed. If you have any new or significant worsening of symptoms feel free to return the emergency department for reassessment otherwise follow-up with your primary care provider if not improving in the next 2 weeks. Referrals: Heide Nunn, PUBLIC INFORMATION SPECIALIST [Primary Care Provider] - 2 weeks (If not improving) Discharge Data Discharge Date/Time-TO BE ENTERED AT DEPARTURE: 05/22/23 11:16 Medical Decision Making Patient presenting the emergency department for chief complaint of back pain secondary to fall. Patient reports slip and fall down her stairs due to having some ice on her boot. States mostly coccyx pain but does state some mid back and neck pain. Denies any numbness tingling, change in bowel or bladder function, chest pain shortness of breath different than baseline or other symptoms. Significant past medical history of MS with some muscular weakness and secondary breathing issues. Physical exam shows discomfort to sacrum and coccyx no external bruising noted. Given patient's age and report of worsening symptoms will perform radiological imaging. Patient reports acetaminophen has been somewhat controlling pain but will give Voltaren gel for additional pain control. Reviewed radiological imaging that shows no acute fracture. There was incidental finding of adnexal cystic structure on the right which was recommended for follow-up on outpatient basis. This was discussed with patient to follow-up with primary care provider. Otherwise discussed conservative management of back injury along with return and follow-up precautions. After discussion of diagnosis and plan of care patient has no further needs, questions, or concerns and states clear understanding to return to the emergency department for any worsening symptoms. This documentation was generated using [employer] in [employer] (PRIMP)ation system, please disregard any oddities of phrase or misspellings. Imaging Data Radiologic Study: Imaging: X-Ray Radiologist's impression: Exam(s) PROCEDURE INFORMATION: Exam: XR Thoracic Spine Exam date and time: 05/22/2023 10:18 AM Age: 62 years old Clinical indication: Injury or trauma; Fall TECHNIQUE: Imaging protocol: Radiologic exam of the thoracic spine. Views: 3 views. COMPARISON: CR XR CERVICAL SP GASPAR TRAUMA 2-3V 05/22/2023 10:16 AM FINDINGS: Bones/joints: Scoliosis and degenerative changes are mild. No acute fracture or significant compression deformity. No lytic or blastic disease. Soft tissues: Unremarkable. IMPRESSION: No acute bony abnormality. Dictated and Authenticated by: Solomon Mcmahon MD. Radiologic Study #2: Imaging: X-Ray Radiologist's impression: Exam(s) PROCEDURE INFORMATION: Exam: XR Cervical Spine Exam date and time: 05/22/2023 10:16 AM Age: 62 years old Clinical indication: Injury or trauma; Fall TECHNIQUE: Imaging protocol: Radiologic exam of the cervical spine. Views: 2 or 3 views. COMPARISON: MR CERVICAL SPINE W 02/06/2021 2:24 PM FINDINGS: Bones/joints: Moderate degenerative changes along the spine best seen at C4-C5 through C6-C7. No acute fracture, high-grade compression deformity, or worrisome malalignment. No prevertebral edema. Soft tissues: Unremarkable. IMPRESSION: Degenerative changes. Dictated and Authenticated by: Solomon Mcmahon MD. Radiologic Study #3: Imaging: CT Scan Radiologist's impression: Exam(s) PROCEDURE INFORMATION: Exam: CT Lumbar Spine Without Contrast Exam date and time: 05/22/2023 10:03 AM Age: 62 years old Clinical indication: Injury or trauma; Blunt trauma (contusions or hematomas); Injury date: 05/20/23; Patient HX: Fall on , getting steadily worse TECHNIQUE: Imaging protocol: Computed tomography of the lumbar spine without contrast. COMPARISON: No relevant prior studies available. FINDINGS: Bones/joints: Age-appropriate degenerative changes best seen at L5-S1 are noted without acute fracture, high-grade compression deformity, or worrisome malalignment. Loss of the lordosis suggests potential spasm. Symmetric SI joints. Spinal epidural space: No epidural fluid. Disc spaces: Bulging discs at multiple levels best seen at L4-L5. No high-grade central stenosis. At least mild foraminal encroachment right greater than left at L4-L5. No significant disc bulge or herniation. Reproductive: Partial inclusion of a right adnexal cystic structure measuring 3.3 cm and nonemergent ultrasound follow-up is recommended. Vasculature: Atherosclerotic changes of the aorta. Soft tissues: No paraspinal mass or hematoma. Other findings: Partial inclusion of a moderate hiatal hernia with potential wall thickening which can be followed with direct visualization or barium study. IMPRESSION: 1. Degenerative changes without acute fracture. 2. Adnexal cystic structure on the right for which follow-up is recommended as above. 3. Hiatal hernia with potential wall thickening partially included on the field of view. Direct visualization or barium study recommended in follow-up. Dictated and Authenticated by: Solomon Mcmahon MD. [facility] Mode of arrival: ambulatory. Date/Time Provider Initiated Documentation: 05/22/23 09:39. Limitations to Documentation: no limitations. Information obtained by: patient and RN notes reviewed. History of Present Illness 62 year old F presents to the emergency department with the chief complaint of Fall with secondary back pain, described as moderate, Quality is described as aching and sharp, and is localized to the back. Patient started experiencing this day(s) (3) and it has been constant. No relieving factors improve symptom(s), Movement worsens symptoms . Patient notes no other symptoms.. Patient did receive the following treatments prior to arrival, other (Acetaminophen) Related Data Home Medications Medication Instructions Recorded Confirmed acetaminophen 500 mg tablet 1,000 mg (2 x 500 mg) PO Q8H PRN 03/29/19 05/22/23 pain #60 tabs cholecalciferol (vitamin D3) 50 5,000 unit PO DAILY #90 tab-caps 09/15/21 05/22/23 mcg (2,000 unit) tablet (Vitamin D3) magnesium glycinate 100 mg tablet 300 mg PO DAILY 09/15/21 05/22/23 ascorbic acid (vitamin C) 1,000 mg 1,000 mg PO DAILY PRN 09/22/22 05/22/23 tablet (Vitamin C) coenzyme Q10 75 mg capsule 200 mg PO DAILY PRN 09/22/22 05/22/23 multivitamin (Daily Multiple 1 tab PO DAILY PRN 03/29/23 05/22/23 tablet) loratadine 10 mg tablet 10 - 20 mg (1 - 2 x 10 mg) PO 04/26/23 05/22/23 DAILY #40 tabs Previous Rx's Medication Instructions Recorded acetaminophen 500 mg tablet 1,000 mg (2 x 500 mg) PO Q8H PRN 03/29/19 pain #60 tabs loratadine 10 mg tablet 10 - 20 mg (1 - 2 x 10 mg) PO 04/26/23 DAILY #40 tabs Allergies Allergy/AdvReac Type Severity Reaction Status Date / Time Penicillins Allergy Severe Anaphylaxsi Verified 05/22/23 09:38 s Red wine Allergy Severe Closes up Uncoded 05/22/23 09:38 my airway General Stated Complaint: Fall/Non TraumaCriteria CARY: 4 Review of Systems Cardiovascular Cardiovascular: Denies chest pain and Denies dyspnea on exertion Respiratory Respiratory: Denies cough and Denies dyspnea on exertion Gastrointestinal Gastrointestinal: Denies abdominal pain, Denies change in bowel habits, Denies diarrhea and Denies vomiting Genitourinary Genitourinary: Denies urinary incontinence Musculoskeletal Musculoskeletal: Reports as per HPI and Reports back pain Neurologic Neurologic: Denies sensory deficit PFSH All Active Problems (Updated 05/22/23 @ 11:06 by Aguilar Santoyo NP) Back pain due to injury (Acute) Hand sprain (Acute) History of mitral valve prolapse (Acute) Chronic shortness of breath (Acute) Since 20s 2022 ETT normal Was told it was related to being premature by pulmonology. Normal PFTs & echo. PFT 08/01/15 [facility] Leukopenia (Acute ~2020) Clinically isolated syndrome (Acute ~10/2022) 10/16/22 Neurology Pulmonary nodule (Acute ~05/2021) 2 nodules, sub 5mm in size. Per chest CT, [facility] 05/2021. 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) MRI c-spine 01/2021 Increased BMI (body mass index) (Acute) Impaired fasting glucose (Chronic 06/24/15) 5.9%-->5.5% (2020) Uncomplicated asthma (Chronic 08/14/15) PFTs 08/03/15 Medical History Pharyngitis Excessive cerumen in both ear canals Other corneal scars and opacities (~09/2022) COVID (~11/07/21) 05/01/23 Category 3 mammography result with short follow-up interval suggested for probably benign finding (~07/2021) F/U L breast U/S 6m (01/2022) Hiatal hernia moderate sized - seen on [facility] chest CT 05/2021 Tick bite (~10/2021) Abnormal MRI, cervical spine T2 signal foci C3/C4 posterior R cord & C5/C6 anterior L cord (see scanned open MRI reports 01/09/2021) Hand paresthesia Lesion of gingiva Elevated BP without diagnosis of hypertension (~2020) TLCs 2020-->low-sodium diet resolved Elevated cholesterol with elevated triglycerides (~2019) ASCVD score 2.4% (no statin indicated; 2019) Stress and adjustment reaction Work History of vitamin D deficiency (~2019) with +fam h/o osteoporosis--recommend supplementation Anxiety Depression Citalopram with good relief Hyperlipidemia (06/24/15) ACC/AHA 2012 10-year ASCVD risk = ~2% --> no statin indicated at this time 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 Heart disease CABG x 3 at age 85 Osteoporosis Father , Emphysema at age 77. 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 Pets and animals: Yes Pets and animals: cat(s) and dog(s) Do you think of yourself as: straight/heterosexual Current gender identity: female What is your relationship status?: How often do you talk on the phone with friends or family?: twice per week How often do you get together with friends or relatives?: three or more times per week How often do you attend methodist or samaritan services?: 1-3 times per year Do you belong to any clubs or organized social groups?: no Panel score (0-1 are the most socially isolated patients): 2 What type of physical activity do you participate in: none and walking Duration: 30-45 minutes/day Frequency: 5-6 times per week Kita/Buddhist: Unitarian Universalist Seatbelt use: always Helmet use: Yes Drive intox or ride w/intox class a regional drivers: No Do you feel safe at home: Yes Do you feel safe in your relationship?: Yes Exam Const General: cooperative, no acute distress and not ill appearing Orientation: alert, awake and oriented x3 HENMT Mouth: moist mucous membranes Resp Effort & Inspection: normal respiratory effort, able to speak in complete sentences and no respiratory distress Back/Spine/Pelvis Cervical Spine: cervical ROM normal, cervical muscular tenderness, No pain with cervical ROM, No cervical spinal tenderness and No step off deformity Thoracic/Lumbar Spine: thoracic and lumbar spine normal to inspection, No paraspinal tenderness, No thoracic spinal tenderness and No lumbar spinal tenderness Pelvis: no buttock ecchymosis and no buttock tenderness Sacrum: no ecchymosis, no swelling and tenderness Coccyx: tenderness Skin General skin exam: no rashes or lesions noted Neuro General: patient alert, patient awake, patient oriented x3, moves all extremities and no focal motor deficits Sensory Exam: no sensory deficits noted Course Vital Signs Vital signs: Vital Signs Temperature 36.5 C 05/22/23 09:35 Pulse 85 05/22/23 09:35 Respiratory Rate 18 05/22/23 09:35 Blood Pressure 153/97 H 05/22/23 09:35 Pulse Oximetry 100 05/22/23 09:35 Temperature 36.5 C 05/22/23 09:35 Temperature Source Skin 05/22/23 09:35 Pulse 85 05/22/23 09:35 Respiratory Rate 18 05/22/23 09:35 Respiratory Effort Normal 05/22/23 09:37 Blood Pressure 153/97 H 05/22/23 09:35 Blood Pressure Position Sitting 05/22/23 09:35 Pulse Oximetry 100 05/22/23 09:35 Oxygen Delivery Method Room Air 05/22/23 09:35 Oxygen Flow Rate 0 05/22/23 09:35 Pain Level 4 05/22/23 09:35
--- NOTE | 2023-05-22 10:27 | DI.VRAD_ITS ---
PROCEDURE INFORMATION: Exam: CT Lumbar Spine Without Contrast Exam date and time: 05/22/2023 10:03 AM Age: 62 years old Clinical indication: Injury or trauma; Blunt trauma (contusions or hematomas); Injury date: 05/20/23; Patient HX: Fall on , getting steadily worse TECHNIQUE: Imaging protocol: Computed tomography of the lumbar spine without contrast. COMPARISON: No relevant prior studies available. FINDINGS: Bones/joints: Age-appropriate degenerative changes best seen at L5-S1 are noted without acute fracture, high-grade compression deformity, or worrisome malalignment. Loss of the lordosis suggests potential spasm. Symmetric SI joints. Spinal epidural space: No epidural fluid. Disc spaces: Bulging discs at multiple levels best seen at L4-L5. No high-grade central stenosis. At least mild foraminal encroachment right greater than left at L4-L5. No significant disc bulge or herniation. Reproductive: Partial inclusion of a right adnexal cystic structure measuring 3.3 cm and nonemergent ultrasound follow-up is recommended. Vasculature: Atherosclerotic changes of the aorta. Soft tissues: No paraspinal mass or hematoma. Other findings: Partial inclusion of a moderate hiatal hernia with potential wall thickening which can be followed with direct visualization or barium study. IMPRESSION: 1. Degenerative changes without acute fracture. 2. Adnexal cystic structure on the right for which follow-up is recommended as above. 3. Hiatal hernia with potential wall thickening partially included on the field of view. Direct visualization or barium study recommended in follow-up. Dictated and Authenticated by: Solomon Mcmahon MD. Ordering:KT Sheikh MD
[2023-05-22] MEDS: Diclofenac 1% Gel 100 GM TUBE TP (10:30)
--- NOTE | 2023-05-22 10:34 | DI.VRAD_ITS ---
PROCEDURE INFORMATION: Exam: XR Cervical Spine Exam date and time: 05/22/2023 10:16 AM Age: 62 years old Clinical indication: Injury or trauma; Fall TECHNIQUE: Imaging protocol: Radiologic exam of the cervical spine. Views: 2 or 3 views. COMPARISON: MR CERVICAL SPINE W 02/06/2021 2:24 PM FINDINGS: Bones/joints: Moderate degenerative changes along the spine best seen at C4-C5 through C6-C7. No acute fracture, high-grade compression deformity, or worrisome malalignment. No prevertebral edema. Soft tissues: Unremarkable. IMPRESSION: Degenerative changes. Dictated and Authenticated by: Solomon Mcmahon MD. Ordering:KT Sheikh MD
--- NOTE | 2023-05-22 10:35 | DI.VRAD_ITS ---
PROCEDURE INFORMATION: Exam: XR Thoracic Spine Exam date and time: 05/22/2023 10:18 AM Age: 62 years old Clinical indication: Injury or trauma; Fall TECHNIQUE: Imaging protocol: Radiologic exam of the thoracic spine. Views: 3 views. COMPARISON: CR XR CERVICAL SP GASPAR TRAUMA 2-3V 05/22/2023 10:16 AM FINDINGS: Bones/joints: Scoliosis and degenerative changes are mild. No acute fracture or significant compression deformity. No lytic or blastic disease. Soft tissues: Unremarkable. IMPRESSION: No acute bony abnormality. Dictated and Authenticated by: Solomon Mcmahon MD. Ordering:KT Sheikh MD
--- NOTE | 2023-05-22 21:44 | W.ED.GENAD ---
Discharge Plan Disposition Patient Disposition: Home Discharge Details Clinical Impression: Hand sprain, Back pain due to injury Primary Care Provider: Heide Nunn ED Provider: Aguilar Santoyo Home Meds and New Rx's Prescriptions: Continued cholecalciferol (vitamin D3) [Vitamin D3] 50 mcg (2,000 unit) tablet 5,000 unit PO DAILY Qty: 90 coenzyme Q10 75 mg capsule 200 mg PO DAILY PRN magnesium glycinate 100 mg tablet 300 mg PO DAILY loratadine 10 mg tablet 10 - 20 mg PO DAILY Qty: 40 0RF Hold Instructions: Pt Stopped/Never Started Rx Instructions: body inflammation/rash--take 1 - 2tabs daily for 14 d, may repeat x1 acetaminophen 500 mg tablet 1,000 mg PO Q8H PRN (Reason: pain) Qty: 60 3RF ascorbic acid (vitamin C) [Vitamin C] 1,000 mg tablet 1,000 mg PO DAILY PRN multivitamin [Daily Multiple] Tablet 1 tab PO DAILY PRN Discharge Instructions Instructions: Back Pain (ED) Additional Instructions: You may perform activities as tolerated by pain and discomfort. Continue to take the [id number] acetaminophen as discussed along with the provided Voltaren gel 3 times daily as needed. If you have any new or significant worsening of symptoms feel free to return the emergency department for reassessment otherwise follow-up with your primary care provider if not improving in the next 2 weeks. Referrals: Heide Nunn, CYLINDER VALVE REPAIRER [Primary Care Provider] - 2 weeks (If not improving) Discharge Data Discharge Date/Time-TO BE ENTERED AT DEPARTURE: 05/22/23 11:16 HPI General Mode of arrival: ambulatory. Date/Time Provider Initiated Documentation: 05/22/23 09:39. Limitations to Documentation: no limitations. Information obtained by: patient and RN notes reviewed. History of Present Illness Quality is described as aching and sharp, and is localized to the back. No relieving factors improve symptom(s), Movement worsens symptoms . Patient notes no other symptoms.. Patient did receive the following treatments prior to arrival, other (Acetaminophen) Related Data Home Medications Medication Instructions Recorded Confirmed acetaminophen 500 mg tablet 1,000 mg (2 x 500 mg) PO Q8H PRN 03/29/19 05/22/23 pain #60 tabs cholecalciferol (vitamin D3) 50 5,000 unit PO DAILY #90 tab-caps 09/15/21 05/22/23 mcg (2,000 unit) tablet (Vitamin D3) magnesium glycinate 100 mg tablet 300 mg PO DAILY 09/15/21 05/22/23 ascorbic acid (vitamin C) 1,000 mg 1,000 mg PO DAILY PRN 09/22/22 05/22/23 tablet (Vitamin C) coenzyme Q10 75 mg capsule 200 mg PO DAILY PRN 09/22/22 05/22/23 multivitamin (Daily Multiple 1 tab PO DAILY PRN 03/29/23 05/22/23 tablet) loratadine 10 mg tablet 10 - 20 mg (1 - 2 x 10 mg) PO 04/26/23 05/22/23 DAILY #40 tabs Previous Rx's Medication Instructions Recorded acetaminophen 500 mg tablet 1,000 mg (2 x 500 mg) PO Q8H PRN 03/29/19 pain #60 tabs loratadine 10 mg tablet 10 - 20 mg (1 - 2 x 10 mg) PO 04/26/23 DAILY #40 tabs Allergies Allergy/AdvReac Type Severity Reaction Status Date / Time Penicillins Allergy Severe Anaphylaxsi Verified 05/22/23 09:38 s Red wine Allergy Severe Closes up Uncoded 05/22/23 09:38 my airway General Stated Complaint: Fall/Non TraumaCriteria CARY: 4 PFSH All Active Problems (Updated 05/22/23 @ 11:06 by Aguilar Santoyo NP) Back pain due to injury (Acute) Hand sprain (Acute) History of mitral valve prolapse (Acute) Chronic shortness of breath (Acute) Since 2022 ETT normal Was told it was related to being premature by pulmonology. Normal PFTs & echo. PFT 08/01/15 [facility] Leukopenia (Acute ~2020) Clinically isolated syndrome (Acute ~10/2022) 10/16/22 Neurology Pulmonary nodule (Acute ~05/2021) 2 nodules, sub 5mm in size. Per chest CT, [facility] 05/2021. 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) MRI c-spine 01/2021 Increased BMI (body mass index) (Acute) Impaired fasting glucose (Chronic 06/24/15) 5.9%-->5.5% (2020) Uncomplicated asthma (Chronic 08/14/15) PFTs 08/03/15 Medical History Pharyngitis Excessive cerumen in both ear canals Other corneal scars and opacities (~09/2022) COVID (~11/07/21) 05/01/23 Category 3 mammography result with short follow-up interval suggested for probably benign finding (~07/2021) F/U L breast U/S 6m (01/2022) Hiatal hernia moderate sized - seen on [facility] chest CT 05/2021 Tick bite (~10/2021) Abnormal MRI, cervical spine T2 signal foci C3/C4 posterior R cord & C5/C6 anterior L cord (see scanned open MRI reports 01/09/2021) Hand paresthesia Lesion of gingiva Elevated BP without diagnosis of hypertension (~2020) TLCs 2020-->low-sodium diet resolved Elevated cholesterol with elevated triglycerides (~2019) ASCVD score 2.4% (no statin indicated; 2019) Stress and adjustment reaction Work History of vitamin D deficiency (~2019) with +fam h/o osteoporosis--recommend supplementation Anxiety Depression Citalopram with good relief Hyperlipidemia (06/24/15) ACC/AHA 2013 10-year ASCVD risk = ~2% --> no statin indicated at this time 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 Heart disease CABG x 3 at age 85 Osteoporosis Father , Emphysema at age 77. 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 Pets and animals: Yes Pets and animals: cat(s) and dog(s) Do you think of yourself as: straight/heterosexual Current gender identity: female What is your relationship status?: How often do you talk on the phone with friends or family?: twice per week How often do you get together with friends or relatives?: three or more times per week How often do you attend sabianist or holiness services?: 1-3 times per year Do you belong to any clubs or organized social groups?: no Panel score (0-1 are the most socially isolated patients): 2 What type of physical activity do you participate in: none and walking Duration: 30-45 minutes/day Frequency: 5-6 times per week Kita/Confucianism: Unitarian Universalist Seatbelt use: always Helmet use: Yes Drive intox or ride w/intox mobile lounge driver: No Do you feel safe at home: Yes Do you feel safe in your relationship?: Yes Course Vital Signs Vital signs: Vital Signs Temperature 36.5 C 05/22/23 09:35 Pulse 85 05/22/23 09:35 Respiratory Rate 18 05/22/23 09:35 Blood Pressure 153/97 H 05/22/23 09:35 Pulse Oximetry 100 05/22/23 09:35 Temperature 36.5 C 05/22/23 09:35 Temperature Source Skin 05/22/23 09:35 Pulse 85 05/22/23 09:35 Respiratory Rate 18 05/22/23 09:35 Respiratory Effort Normal, Non-Labored 05/22/23 10:02 Respiratory Depth Normal 05/22/23 10:02 Respiratory Pattern Normal 05/22/23 10:02 Blood Pressure 153/97 H 05/22/23 09:35 Blood Pressure Position Sitting 05/22/23 09:35 Pulse Oximetry 100 05/22/23 09:35 Oxygen Delivery Method Room Air 05/22/23 09:35 Oxygen Flow Rate 0 05/22/23 09:35 Pain Level 4 05/22/23 09:35
== END 2023-05-22 11:16 | disposition home or self-care (01) ==
PROVIDERS: Emergency Provider Nurse Practitioner Family; PCP Nurse Practitioner Adult Health
DX: S32.2XXA Fracture of coccyx, initial encounter for closed fracture (principal); E78.5 Hyperlipidemia, unspecified; G35 Multiple sclerosis; Z87.891 Personal history of nicotine dependence; W00.1XXA Fall from stairs and steps due to ice and snow, initial encounter; Y93.01 Activity, walking, marching and hiking
CPT/HCPCS: 99284; 72040; 72072; 72131

== ENCOUNTER → 2023-07-07 01:59 | Outpatient (CLI) | payer BC, SELFPAY ==
--- NOTE | 2023-07-07 07:00 | DI.US_ITS ---
Exam(s) US PELVIS TRANSVAGINAL EXAM: US PELVIS TRANSVAGINAL CLINICAL HISTORY: abnormal ct; R adnexal mass,N94.89. TECHNIQUE: Transabdominal and transvaginal pelvic ultrasound was performed using standard protocol. COMPARISON: CT CT LUMBAR SPINE SI JOINTS WO from 05/22/2023 FINDINGS: UTERUS: Position: Anteverted. Size: 5.2 long by 3.9 AP by 4.7 transverse cm Endometrium: 0.4 cm. Normal for patient's menstrual status. Myometrium: Unremarkable. Cervix: Unremarkable. OVARIES: The left ovary cannot be visualized on this examination. Right: 4.0 x 3.9 x 4.2 cm Cyst or mass: No suspicious cystic or solid masses. There is a 3.2 x 3.6 x 3.7 cm simple cyst. This is likely physiologic. DOPPLER: Color: There is blood flow seen to the right ovary. CUL-DE-SAC: Free fluid: None. Other: None. IMPRESSION: 1. Normal-appearing uterus with endometrial stripe within normal limits. 2. The right ovarian lesion is consistent with a right simple ovarian cyst. This is likely physiolog ic. DATA REPOSITORY:
--- NOTE | 2023-07-07 09:47 | DI.RAD_ITS ---
Exam(s) XR SACRUM COCCYX EXAM: XR SACRUM COCCYX CLINICAL HISTORY: interval assessment fx,F/U SACRAL FX,S32.10XA. TECHNIQUE: 2D digital imaging was performed. Three images were obtained. COMPARISON: CT CT LUMBAR SPINE SI JOINTS WO from 05/22/2023 FINDINGS: BONES: There has been no change in alignment of the fracture at the sacrococcygeal junction. No new fracture is identified. No bony destructive lesion is seen. JOINTS: No dislocation present. SOFT TISSUE: Normal. IMPRESSION: Stable alignment of the fracture at the sacrococcygeal junction. DATA REPOSITORY: RADIATION DOSE DELIVERED:
== END ==
PROVIDERS: PCP Nurse Practitioner Adult Health; Visit Provider Nurse Practitioner Adult Health
DX: S32.10XD Unspecified fracture of sacrum, subsequent encounter for fracture with routine healing (principal); N94.89 Other specified conditions associated with female genital organs and menstrual cycle; N83.201 Unspecified ovarian cyst, right side; X58.XXXD Exposure to other specified factors, subsequent encounter
CPT/HCPCS: 72220; 76830; 76856

== ENCOUNTER 2023-10-04 14:53 | Outpatient (RCR) | payer BC, SELFPAY | END 2023-10-05 23:59 | disposition home or self-care (01) | LOC: PRC 14:53 | PROVIDERS: PCP Nurse Practitioner Adult Health; Referring Provider Physician Assistant Surgical; Visit Provider Student in an Organized Health Care Education/Training Program | DX: R06.02 Shortness of breath (principal); J98.4 Other disorders of lung | CPT/HCPCS: 94626 ==

== ENCOUNTER 2023-10-18 04:52 | Outpatient (CLI) | payer BC, SELFPAY ==
[2023-10-18 08:03] LABS: Abs Immature Grans 0.02 10^3/uL (0.0-0.06); Absolute Basophil Count 0.05 10^3/uL (0.0-0.2); Absolute Eosinophil Count 0.17 10^3/uL (0.0-0.7); Absolute Lymphocyte Count 1.51 10^3/uL (1.2-3.4); Absolute Monocyte Count 0.29 10^3/uL (0.1-0.8); Basophils % 1.2 %; HCT 44.8 % (36.0-46.0); HGB 14.6 g/dL (11.2-15.7); Immature Grans % 0.5 %; Lymphocytes % 35.6 %; MCHC 32.6 % (32.0-36.0); MCV 92 fL (80-95); MPV 9.3 fL (8.0-11.0); Monocytes % 6.8 %; Neutrophils % 51.9 %; Platelet Count 233 10^3/uL (130-400); RBC 4.86 10^6/uL (3.93-5.22); RDW 12.8 % (11.7-14.6); RDW-SD 43.8 fL; WBC 4.24 10^3/uL (4.4-10.8)
[2023-10-18 08:29] LABS: Hemoglobin A1C 5.7 % (<5.7)
[2023-10-18 08:49] LABS: ALT 19 U/L (14-59); AST 15 U/L (15-37); Albumin 3.9 g/dL (3.4-5.0); Alkaline Phosphatase 75 U/L (46-116); Anion Gap 8.7 mmol/L (3-11); BUN 18 mg/dL (7-18); Bilirubin, Total 0.6 mg/dL (0.2-1.0); CO2 30.3 mmol/L (21.0-32.0); CREATININE 0.8 mg/dL (0.55-1.02); Calcium 8.8 mg/dL (8.5-10.1); Calculated LDL 130 mg/dL (<100); Chloride 103 mmol/L (98-107); Cholesterol 234 mg/dL (<200); Estimated GFR 83.78 (mL/min/1.73m2); Folate 12.9 ng/mL (8.6-20.0); Glucose 97 mg/dL (74-106); HDL Cholesterol 87 mg/dL (40-60); Potassium 4.7 mmol/L (3.5-5.1); Sodium 142 mmol/L (136-145); Total Protein 7.3 g/dL (6.4-8.2); Triglyceride 88 mg/dL (<150); Vitamin B12 492 pg/mL (193-986)
== END 2023-10-18 04:53 | disposition home or self-care (01) ==
LOC: LBO 04:52
PROVIDERS: Absent Provider Nurse Practitioner Adult Health; PCP Nurse Practitioner Adult Health; Referring Provider Nurse Practitioner Adult Health; Visit Provider Nurse Practitioner Adult Health
DX: D72.819 Decreased white blood cell count, unspecified (principal); R06.02 Shortness of breath; R49.0 Dysphonia; R73.01 Impaired fasting glucose
CPT/HCPCS: 36415; 80053; 80061; 82607; 82746; 83036; 85025

== ENCOUNTER 2023-11-05 14:00 | Outpatient (RCR) | payer BC, SELFPAY | END 2023-11-05 23:59 | disposition home or self-care (01) | LOC: PRC 14:00 | PROVIDERS: PCP Nurse Practitioner Adult Health; Referring Provider Physician Assistant Surgical; Visit Provider Student in an Organized Health Care Education/Training Program | DX: R06.02 Shortness of breath (principal); J98.4 Other disorders of lung | CPT/HCPCS: 94626 ==

== ENCOUNTER 2023-11-12 14:22 | Outpatient (RCR) | payer BC, SELFPAY | END 2023-12-05 23:59 | disposition home or self-care (01) | LOC: PRC 14:22 | PROVIDERS: PCP Nurse Practitioner Adult Health; Referring Provider Physician Assistant Surgical; Visit Provider Student in an Organized Health Care Education/Training Program | DX: R06.02 Shortness of breath (principal); J98.4 Other disorders of lung | CPT/HCPCS: 94626 ==

== ENCOUNTER 2023-12-31 15:24 | Emergency (ER) | payer BC, SELFPAY ==
[2023-12-31 15:26] VITALS: BP 159/97; PULSE 64; RESP 18; TEMP 37; O2SAT 97
--- NOTE | 2023-12-31 17:00 | DI.RAD_ITS ---
Exam(s) XR KNEE LT 4V AP,LAT,MELANY,PAT EXAM: XR KNEE LT 4V AP,LAT,MELANY,PAT CLINICAL HISTORY: knee pain. TECHNIQUE: 2D digital imaging was performed. COMPARISON: No exams were available for comparison FINDINGS: Four views No evidence of acute fracture. Small amount of increased joint fluid noted. Also corticated calcifi cation at the insertional aspect of quadriceps tendon upon the anterosuperior aspect of the patella. There are no obvious degenerative changes in the patellofemoral compartment. There are some degener ative changes in the lateral compartment with marginal osteophytes but no joint space narrowing on th e weight-bearing view. Also no abnormal narrowing of the medial compartment. No osteochondral defec ts seen. Bone density normal. No osseous lesions. On the frontal view there is a thin density sliver in the soft tissues adjacent to the medial femoral condyle. I suspect this may be artifact related to overlying clothing. However, cannot exclude pos sibility of this being foreign body or periosteal stripping at this level. Is not seen on the other images. IMPRESSION: Mild degenerative changes. Small joint effusion. DATA REPOSITORY: RADIATION DOSE DELIVERED:
--- NOTE | 2023-12-31 23:05 | W.ED.GENAD ---
Discharge Plan Disposition Patient Disposition: Home Discharge Details Clinical Impression: Internal derangement of knee Primary Care Provider: Heide Nunn ED Provider: Cheyanne Hatfield Home Meds and New Rx's Prescriptions: Continued cholecalciferol (vitamin D3) [Vitamin D3] 50 mcg (2,000 unit) tablet 5,000 unit PO DAILY Qty: 90 citalopram 10 mg tablet 10 mg PO DAILY Qty: 90 1RF clonazepam 0.5 mg tablet 0.25 - 0.5 mg PO BID PRN (Reason: acute anxiety) Qty: 30 0RF magnesium glycinate 100 mg tablet 300 mg PO DAILY acetaminophen 500 mg tablet 1,000 mg PO Q8H PRN (Reason: pain) Qty: 60 3RF ascorbic acid (vitamin C) [Vitamin C] 1,000 mg tablet 1,000 mg PO DAILY PRN multivitamin [Daily Multiple] Tablet 1 tab PO DAILY PRN Discharge Instructions Instructions: Internal Derangement of the Knee Additional Instructions: Wear your hinged knee brace when you are up and about, this will likely help with your discomfort, take the brace off at night as tolerated You may apply Voltaren gel or ibuprofen gel which is [id number] as prescribed or recommended on the container Please follow-up with pcp in one week for reassessment if you have persistent pain, you may have injury to your meniscus Take Tylenol 650 every 6 hours, do not exceed 4 g of Tylenol daily and return earlier should you have new or worsening complaints including redness, swelling, fever, chills Referrals: Daniel Alston MD [ [facility] STAFF PHYSICIAN] - Heide Nunn, CONTRACT ADMINISTRATION MANAGER [Primary Care Provider] - Discharge Data Discharge Date/Time-TO BE ENTERED AT DEPARTURE: 12/31/23 17:33 HPI General Date/Time Provider Initiated Documentation: 12/31/23 16:10. HPI Narrative: This 63-year-old female presents with left knee pain. She states she stepped over and [place] and thinks she planted her foot incorrectly had pain to the medial aspect of her knee. She states it is hard for the majority of today. Denies any additional injuries or complaints. Denies any calf pain or swelling. Related Data Home Medications ?Medication ?Instructions ?Recorded ?Confirmed acetaminophen 500 mg tablet 1,000 mg (2 x 500 mg) PO Q8H PRN 03/29/19 11/22/23 pain #60 tabs cholecalciferol (vitamin D3) 50 5,000 unit PO DAILY #90 tab-caps 09/15/21 11/23/23 mcg (2,000 unit) tablet (Vitamin D3) magnesium glycinate 100 mg (as 300 mg PO DAILY 09/15/21 11/23/23 glycinate) tablet ascorbic acid (vitamin C) 1,000 mg 1,000 mg PO DAILY PRN 09/22/22 11/23/23 tablet (Vitamin C) multivitamin (Daily Multiple 1 tab PO DAILY PRN 03/29/23 11/23/23 tablet) citalopram 10 mg tablet 10 mg PO DAILY #90 tabs 11/08/23 11/22/23 clonazepam 0.5 mg tablet 0.25 - 0.5 mg (0.5 - 1 x 0.5 mg) 11/08/23 11/23/23 PO BID PRN acute anxiety #30 tabs Previous Rx's ?Medication ?Instructions ?Recorded acetaminophen 500 mg tablet 1,000 mg (2 x 500 mg) PO Q8H PRN 03/29/19 pain #60 tabs citalopram 10 mg tablet 10 mg PO DAILY #90 tabs 11/08/23 clonazepam 0.5 mg tablet 0.25 - 0.5 mg (0.5 - 1 x 0.5 mg) 11/08/23 PO BID PRN acute anxiety #30 tabs Allergies Allergy/AdvReac Type Severity Reaction Status Date / Time Penicillins Allergy Severe Anaphylaxsi Verified 11/22/23 09:50 s Red wine Allergy Severe Closes up Uncoded 11/22/23 09:50 my airway General Stated Complaint: Orthopedic CARY: 4 Exam Narrative Exam Narrative: Alert and oriented 63-year-old female no acute distress left knee with negative anterior posterior draw. No calf swelling or tenderness, distal pulses intact to bilateral lower extremities. Course Vital Signs Vital signs: Vital Signs Temperature 37.0 C 12/31/23 15: Pulse 64 12/31/23 15:26 Respiratory Rate 18 12/31/23 15:26 Blood Pressure 159/97 H 12/31/23 15:26 Pulse Oximetry 97 12/31/23 15:26 Temperature 37.0 C 12/31/23 15:26 Temperature Source Temporal Artery Scan 12/31/23 15:26 Pulse 64 12/31/23 15:26 Respiratory Rate 18 12/31/23 15:26 Respiratory Effort Normal 12/31/23 17:30 Blood Pressure 159/97 H 12/31/23 15:26 Blood Pressure Position Sitting 12/31/23 15:26 Pulse Oximetry 97 12/31/23 15:26 Oxygen Delivery Method Room Air 12/31/23 15:26 Oxygen Flow Rate 0 12/31/23 15:26 Medical Decision Making 63-year-old female presenting with left knee pain presenting with report patient had x-ray performed for further evaluation which shows effusion with degenerative changes per radiology interpretation my review. Refer back to primary care physician and orthopedics. Placed in a hinged knee brace and ambulatory with steady gait. return precautions reviewed and patient expressed understanding. Discharged Quality:SDOH Health Related Social Needs: Health related social needs inadequate housing Health related social needs details Mold in the bathroom PFSH All Active Problems (Updated 12/31/23 @ 17:17 by BRISSA Nielson) Internal derangement of knee (Acute) Acute serous otitis media (Acute) Adjustment disorder with mixed anxiety and depressed mood (Acute) Restarting meds Hyperlipidemia (Acute 06/24/15) ACC/AHA 2013 10-year ASCVD risk = ~2% --> no statin indicated at this time History of mitral valve prolapse (Acute) Chronic shortness of breath (Acute) Since 20s 2022 ETT normal Was told it was related to being premature by pulmonology. Normal PFTs & echo. PFT 08/01/15 [facility] Leukopenia (Acute ~2020) Clinically isolated syndrome (Acute ~10/2022) 10/16/22 Neurology Pulmonary nodule (Acute ~05/2021) 2 nodules, sub 5mm in size. Per chest CT, [facility] 05/2021. 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) MRI c-spine 01/2021 Increased BMI (body mass index) (Acute) Impaired fasting glucose (Chronic 06/24/15) 5.9%-->5.5% (2020) Uncomplicated asthma (Chronic 08/14/15) PFTs 08/03/15 Medical History Sacral fracture (~05/2023) Adnexal mass (~05/2023) Seen on CT (incidental); F/U U/S showed simple cyst--no F/U needed Diverticulosis (~05/2023) Visualized on CT imaging Pharyngitis Excessive cerumen in both ear canals Other corneal scars and opacities (~09/2022) COVID (~11/07/21) 05/01/23 Category 3 mammography result with short follow-up interval suggested for probably benign finding (~07/2021) F/U L breast U/S 6m (01/2022) Hiatal hernia moderate sized - seen on [facility] chest CT 05/2021 Tick bite (~10/2021) Abnormal MRI, cervical spine T2 signal foci C3/C4 posterior R cord & C5/C6 anterior L cord (see scanned open MRI reports 01/09/2021) Hand paresthesia Lesion of gingiva Elevated BP without diagnosis of hypertension (~2020) TLCs 2020-->low-sodium diet resolved Elevated cholesterol with elevated triglycerides (~2019) ASCVD score 2.4% (no statin indicated; 2019) Stress and adjustment reaction Work History of vitamin D deficiency (~2019) with +fam h/o osteoporosis--recommend supplementation Anxiety Depression Citalopram with good relief 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 Heart disease CABG x 3 at age 85 Osteoporosis Father , Emphysema at age 77. Emphysema Smoker Sister Depression Mental disorder Schizophrenia Asthma Brother Sarcoidosis of lung Social History Smoking/Tobacco Use Status: Former Tobacco Use Quit Date: 06/07/79 Tobacco: How many years used: 3 Smoking risk assessment performed?: Yes Alcohol Intake: current Alcohol Intake frequency: holidays/special occasions only Alcohol type: wine Drug use: Never Substance use type: does not use Adopted: No Caregiver/Support person: No Foster care: No Household members: spouse Housing: house Number of Children: 2 Communication Needs: Corrective Lenses Education Level: college Details: Bachelor's Do you need help understanding health information?: Rarely 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 Pets and animals: Yes Pets and animals: cat(s), dog(s) and other Details: Chickens Sexually active: Yes Do you think of yourself as: straight/heterosexual Current gender identity: female What is your relationship status?: How often do you talk on the phone with friends or family?: twice per week How often do you get together with friends or relatives?: twice per week How often do you attend faith or roman catholic services?: decline to answer Do you belong to any clubs or organized social groups?: yes Panel score (0-1 are the most socially isolated patients): 3 What type of physical activity do you participate in: walking and other Details: Pulmonary Rehab Duration: 15-30 minutes/day Frequency: 5-6 times per week Kita/Hoahaoism: Unitarian Universalist Special kita needs: No Seatbelt use: always Helmet use: No (N/A) Drive intox or ride w/intox driver's license examiner: No Do you feel safe at home: Yes Do you feel safe in your relationship?: Yes
== END 2023-12-31 17:33 | disposition home or self-care (01) ==
PROVIDERS: Emergency Provider Physician Assistant; PCP Nurse Practitioner Adult Health
DX: M25.562 Pain in left knee (principal); M23.92 Unspecified internal derangement of left knee; X50.0XXA Overexertion from strenuous movement or load, initial encounter
CPT/HCPCS: 29505; 99283; 73564

== ENCOUNTER 2024-03-06 20:30 | Outpatient (REF) | payer BC, SELFPAY | END 2024-03-06 20:31 | disposition home or self-care (01) | LOC: LBN 20:30 | PROVIDERS: PCP Nurse Practitioner Adult Health; Visit Provider Nurse Practitioner Family | DX: J02.9 Acute pharyngitis, unspecified (principal) | CPT/HCPCS: 87070 ==

== ENCOUNTER 2024-03-28 01:05 | Outpatient (CLI) | payer BC, SELFPAY ==
--- NOTE | 2024-03-28 06:45 | DI.MAMMO_ITS ---
Exam(s) MAMMO SCREENING EXAM: MAMMO SCREENING CLINICAL HISTORY: screening,Z12.39. TECHNIQUE: Bilateral full field digital CC and MLO mammographic images were obtained with 3D tomosyn thesis and utilizing computer aided detection (CAD). COMPARISON: Prior mammograms were reviewed. FINDINGS: There has been no significant change in the appearance and distribution of the fibroglandular tissue. There are no CAD designations. There are no new spiculated masses nor malignant appearing microcalcification groups. There is no significant architectural distortion nor skin thickening-retraction. IMPRESSION: No radiographic evidence of malignancy. BI-RADS Category 1 - Negative Breast Density - Category B - Scattered areas of fibroglandular density Breast density Category C or D implies that the patient has dense breast tissue. Dense breast tissue can make it harder to find cancer on a mammogram. Dense breast tissue is also associated with an incr eased risk of breast cancer. This information about the result of the mammogram report was provided to the patient to raise their awareness. Use this report when you speak with the patient about their risks for breast cancer, which includes their family history. At that time, you may recommend additional screening tests (Ultrasoun d or MRI) as these tests may add significant information. A negative radiographic report should not delay biopsy if a dominant or clinically suspicious mass is present. Up to ten percent of cancers are not identified on mammography. A negative report may reinforce clinical impression. Adenosis and dense breasts may obscure an underlying neoplasm. False positive reports average 6 to 10%. Patient will receive a letter notifying them of these results.
== END 2024-03-28 01:25 ==
LOC: DI 01:05
PROVIDERS: PCP Nurse Practitioner Adult Health; Visit Provider Nurse Practitioner Adult Health
DX: Z12.31 Encounter for screening mammogram for malignant neoplasm of breast (principal)
CPT/HCPCS: 77063; 77067

== ENCOUNTER 2024-05-26 00:15 | Outpatient (CLI) | payer BC, SELFPAY ==
--- OUTSIDE RECORDS SUMMARY | 2024-05-26 00:16 | XMS_ITS | Clinical Summary ---
Author Organization [facility] Address [address] [place] [address] Care Team Providers Care Long Chain Quiller Tender Name Role Phone Heide Nunn APRN Unavailable [phone] Heide Nunn APRN Primary Care Provider [phone] Allergies Active Allergy Reactions Criticality Noted Date Comments Other - See Comments 06/29/2023 Red wine, pt reports anaphylaxis (throat closing) with red wine Penicillins 09/10/2020 Medications cholecalciferol , Vitamin D3, 25 mcg (1,000 unit) tablet Take 10 Tablets by mouth daily. Active multivitamin (TAB-A-QUENTIN) tablet Take 1 Tablet by mouth daily. Active ZINC ORAL Take by mouth. Active MAGNESIUM CITRATE ORAL Take 2 Capsules by mouth daily. Active lactobacillus rhamnosus, GG, (CULTURELLE) 10 billion cell capsule Take 1 Capsule by mouth as needed. Active omega-3 fatty acids 1,000 mg capsule capsule Take 2 Capsules by mouth daily. Active Active Problems Problem Noted Date Diagnosed Date Multiple sclerosis (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 Impaired fasting glucose Hiatal hernia Elevated BP without diagnosi s of hypertension Elevated cholesterol with el evated triglycerides Stress and adjustment reaction Anxiety Depression 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, 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 Family History Medical History Relation Comments Sarcoidosis Brother COPD Father Heart Disease Mother Asthma Sister Depression Sister Schizophrenia Sister Relation Status Comments Brother Father Mother Sister Social History Tobacco Use Types Packs/Day Years Used Date Smoking Tobacco: Former Cigarettes Smokeless Tobacco: Never Tobacco Cessation:Counseling Given: Not Answered Alcohol Use Standard Drinks/Week Comments Yes 0 (1 standard drink = 0.6 oz pur e alcohol) Interpersonal Safety Answer Date Record ed Physically Hurt Never 06/23/2020 Verbally Threaten Not on file 06/23/2020 Comments Unknown Sex and Gender Information Value Date Recorded Sex Assigned at Not on file Legal Sex Female 18:38 EST Gender Identity Female 08/30/2020 13:52 EDT Sexual Orientation Not on file Obstetrics History Last Filed Vital Signs Vital Sign Reading Time Taken Comments Blood Pressure 148/102 08/12/2023 1412 EST Pulse 75 08/12/2023 1409 EST Temperature - - Respiratory Rate - - Oxygen Saturation 97% 08/12/2023 1409 EST Inhaled Oxygen Concentration - - Weight 79.5 kg (175 lb 3.2 oz) 08/12/[address] Height 163.8 cm (5' 4.5) 08/12/2023 1409 EST Body Mass Index 29.61 08/12/2023 1409 EST Plan of Treatment Upcoming Encounters Date Type Department Care Team (Late st Contact Info) Description 08/01/2024 11:40 EST Office Visit [facility] ENT- Main [address] [address] Jorje Sosa MD [address] [place] [address], [address] [place] [address] Health Maintenance Due Date Last Done Comments COVID-19 Vaccine (2023- season) 2024 RSV Immunization ( o r 60+ Years) (1 - 1-dose 75+ series) 2036 Hepatitis C Screen Completed 10/23/2020 Procedures Procedure Name Priority Date/Time Associated Diagnosis Comments HEPATITIS C AB W REFLEX TO HCV RNA BY PCR Routine 10/23/2020 7:26 EDT from Last 3 Months or Most Recently Relevant to Health Maintenance Results * HEPATITIS C AB W REFLEX TO HCV RNA BY PCR (10/23/2020 7:26 EDT) Hep C Antibody Negative Negative 10/24/2020 10:23 EDT [facility] Blood VENOUS BLOOD / Unknown 10/23/2020 7:26 EDT 10/23/2020 15:43 EDT us Provider Outr Resulting Lab CHEMISTRY & BLOOD GA S ORDERABLES Final Result [facility] [address] [place] [address] from Last 3 Months or Most Recently Relevant to Health Maintenance Insurance [facility] Care Teams Long Chain Quiller Tender Relationship Specialty Start Date End Date Heide Nunn APRN [address] [place], [place] [address] [address] PCP - General Family Medicine - [facility] Medicine 06/28/23 Heide [place] [address] (work) [facility] Medicine [facility] Medicine 06/29/23
--- OUTSIDE RECORDS SUMMARY | 2024-05-26 00:16 | XMS_ITS | Referral Summary ---
Author Organization [facility] Address [address] [place] [address] Care Team Providers Care Salt Washer Name Role Phone Heide Nunn APRN Unavailable [phone] Heide Nunn APRN Primary Care Provider [phone] Allergies Active Allergy Reactions Criticality Noted Date [...] Problem Noted Date Diagnosed Date Multiple sclerosis ([facility]) 08/12/2023 Overview (08/12/2023): Relapsing remitting; follows with neurology at [facility] Venous insufficiency of left lower extremity 12/2023 Social History Tobacco Use Types Packs/Day Years [...] 13:52 EDT Sexual Orientation Not on file Last Filed Vital Signs Vital Sign Reading [...] Body Mass Index 29.61 08/12/2023 1409 EST Functional Status * Because of a physical, mental, or emotional condition, does this person have difficulty doing errands alone such as visiting a doctor's office or shopping? Answer Date of Assessment Author No 09/10/2020 12:50 EDT Mental Status * Because of a physical, mental, or emotional condition, does this person have serious difficulty concentrating, remembering, or making decisions? Answer Entry Date Author No 09/10/2020 12:50 EDT Plan of Treatment Upcoming Encounters Date Type Department Care Team (Late st Contact Info) Description 08/01/2024 11:40 EST Office Visit [address] [address] Jorje Sosa MD [address] [place] [address], [address] [place] [id number] Procedures Procedure Name Priority Date/Time Associated Diagnosis Comments HEPATITIS C AB W REFLEX TO HCV RNA BY PCR Routine 10/23/2020 7:26 EDT from Last 3 Months or Most Recently Relevant to Health Maintenance Results * HEPATITIS C AB W REFLEX TO HCV RNA BY PCR (10/23/2020 7:26 EDT) Hep C Antibody Negative Negative 10/24/2020 10:23 EDT [facility] Blood VENOUS BLOOD / Unknown 10/23/2020 7:26 EDT 10/23/2020 15:43 EDT us Provider Outr Resulting Lab CHEMISTRY & BLOOD GA S ORDERABLES Final Result [facility] [address] [place] [address] from Last 3 Months or Most Recently Relevant to Health Maintenance Insurance [facility] Care Teams Salt Washer Relationship Specialty Start Date End Date Heide Nunn APRN [address] [place] [id number] PCP - General [facility] 06/28/23 Heide Nunn APRN [address] [place] [id number] [facility] 06/29/23
--- OUTSIDE RECORDS SUMMARY | 2024-05-26 00:17 | XMS_ITS | Encounter Summary ---
Author Organization [facility] Address [facility] [place] [address] Care Team Providers Care Pc Support Specialist Name Role Phone Arline Heide SNOW Primary Care Provider [phone] Encounter Details Date Type Department Care Team (Latest Contact Info) Description 10/16/2022 9:30 AM EDT TH Visit (TeleHealth) [place] [phone] Yovanny Garay MD [facility] [place] [address] Clinically isolated syndrome Social History Tobacco Use Types Packs/Day Years Used Date Smoking Tobacco: Former Cigarettes 1 4 1 - 1983 Smokeless Tobacco: Never Alcohol Use Standard Drinks/Week Comments Never 0 (1 standard drink = 0.6 oz pur e alcohol) Sex and Gender Information Value Date Recorded Sex Assigned at Not on file Gender Identity Not on file Sexual Orientation Not on file documented as of this encounter Progress Notes * Yovanny Garay MD - 10/16/2022 9:30 AM EDT [id number] 31 minutes Telehealth because of pandemic. 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 MS Severity Score (EDSS and Disease Duration):??too early ?? Treatment History Previous disease therapies: none Current disease therapies: none ?? Imaging History Most recent MRI brain:??-- no change Most recent MRI cervical spine:?? Most recent MRI thoracic spine: ?? Interval History:? Generally doing well, except for continuing tingling ?? MS Symptom Review: Mood:?? Medications: ??Lifestyle: Neuropathic symptoms:?? Motor:?? Spasms/spasticity:?? Ambulation:?? Falls:?? Bladder:?? Bowel:? Current Medications: ? No DMTs ?? Assessment:? Generally stable; no new symptoms. Will try Gabapentin for some of her dysesthesias ?? Monitoring Plan: ?? MRI brain was stable Treatment Plan:? As above ?? Follow-Up:? 3 months by telehealth. MD Raji Plascencia Professor of Neurology Department of Neurology [facility] [place] [address] At least 20 minutes of this 31 minute Telehealth visit were spent in discussion of the topics outlined in the note above including diagnosis, therapy, and management issues. 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
--- OUTSIDE RECORDS SUMMARY | 2024-05-26 00:17 | XMS_ITS | Encounter Summary ---
Author Organization [facility] Address [address] [place] [address] Care Team Providers Care Metal Casting Trades Worker Name Role Phone Unavailable Primary Care Provider Unavailabl e Encounter Details Date Type Department Care Team (Late Contact Info) Description 03/04/2009 Orders Only [facility] [address] [place], [place] [id number] Trish Trinh MD [address] [place] [id number] Social History Tobacco Use Types Packs/Day Years Used Date Smoking Tobacco: Never Assessed Comments Unknown Sex and Gender Information Value Date Recorded Sex Assigned at Not on file Legal Sex Female 18:38 EST Gender Identity Female 08/30/2020 13:52 EDT Sexual Orientation Not on file documented as of this encounter Plan of Treatment Upcoming Encounters Date Type Department Care Team (Late Contact Info) Description 08/01/2024 11:40 EST Office Visit [facility]- Main [place] [address] [place], [place] [address] Jorje Sosa MD [address] [facility], [address] [place] [address] documented as of this encounter Procedures Procedure Name Priority Date/Time Associated Diagnosis Comments CYTOPATHOLOGY Routine 03/04/2009 0:00 EDT documented in this encounter Results * CYTOPATHOLOGY (03/04/2009 0:00 EDT) Pathology Report: CYTOPATHOLOGY REPORT ? Reports generated via electronic interface contain original data; ? however they are lacking the format of the original report. ? Caution should be taken when reading/interpreti ng unformatted reports. ? Name: ? NAVARRO SHEFFIELD ? Accession #: ? [id number] ? : ? 1960 (Age: 48) ??F ?Collect Date: ? 03/04/2009 ? Location: ? [facility] ? Receive Date: ? 03/06/2009 ? Provider: ?TRISH TRINH MD ? Copy to: ? Specimen/Source: ?Pap Test, Vagina/Cervix/Endo cervix, ThinPrep Imaging ? System with manual evaluation ? Last Menstrual Period: ? 1 week ? Previous Gynecologic Pathology: ? ASC-US: 6/06 ? Other: ? Additional clinical information: HPV neg ? SPECIMEN ADEQUACY ? Satisfactory for Evaluation ? - transformation zone component absent ? GENERAL CATEGORIZATION ? Negative for Intraepithelial Lesion or Malignancy ? Document reviewed and electronically signed by: ? Eneida [place], [place](ASCP) ? Report Date: ??03/14/2009 09:24 ? End of Report ? [facility] 03/04/2009 03/06/2009 us Trish Trinh MD PATHOLOGY ORDERABLES Final Resu lt [facility] [address] [place] [address] documented in this encounter Visit Diagnoses Not on filedocumented in this encounter
--- OUTSIDE RECORDS SUMMARY | 2024-05-26 00:17 | XMS_ITS | Encounter Summary ---
Author Organization [facility] Address [facility] [place] [address] Care Team Providers Care It Quality Analyst Name Role Phone Heide Nunn APRN Primary Care Provider [phone] Reason for Referral * Diagnostic Test (Routine) - Closed Specialty Diagnoses / Procedures Referred By Saiv matthew Referred To Contact Radiology Diagnoses Pulmonary nodule Procedures CT Chest wo Contrast (Generic) Heide Nunn APRN [address] [place] [address] [facility] [place] [address] Referral ID Status Reason Start Date Expiration Date V isits Requested Visits Authorized [id number] Closed Specialty Service Requested 02/16/2023 08/16/2024 1 1 Reason for Visit * Diagnostic Test (Routine) - Closed Specialty Diagnoses / Procedures Referred By Contariadna t Referred To Contact Radiology Diagnoses Pulmonary nodule Procedures CT Chest wo Contrast (Generic) Heide Nunn APRN [address] [place] [address] [facility] [place] [address] Referral ID Status Reason Start Date Expiration Date V isits Requested Visits Authorized [id number] Closed Specialty Service Requested 02/16/2023 08/16/2024 1 1 Encounter Details Date Type Department Care Team (Latest Contact Info) Description 03/02/2023 9:28 AM EDT - 03/02/2023 11:59 PM EDT [place] [address] Heide Nunn, ADVERTISING INTERN [address] [place] [address] Pulmonary nodule Discharge Disposition: Home Social History Tobacco Use Types Packs/Day Years Used Date Smoking Tobacco: Former Cigarettes 1 4 1 1983 Smokeless Tobacco: Never Alcohol Use Standard Drinks/Week Comments Never 0 (1 standard drink = 0.6 oz pur e alcohol) Sex and Gender Information Value Date Recorded Sex Assigned at Not on file Gender Identity Not on file Sexual Orientation Not on file documented as of this encounter Medications at Time of Discharge Medication Sig Dispensed Refills Start Date End Date acetaminophen (Tylenol) 500 mg tablet as needed for Pain. 03/29/2019 Magnesium Glycinate 100 mg Tablet daily. 09/15/2021 MAGNESIUM CITRATE ORAL Take 2 capsules by mouth daily. lactobacillus rhamnosus, GG, (CULTURELLE) 10 billion cell Capsule Take 1 capsule by mouth as needed. UNABLE TO FIND daily. lechitine- granules fish oil-omega-3 fatty acids 1,000 mg Capsule Take 2 g by mouth as needed. UNABLE TO FIND daily. ceralogic ascorbic acid (LIO-C ORAL) Take 3 capsules by mouth as needed. UNABLE TO FIND 1 capsule daily. gotukola multivitamin (THERAGRAN) Tablet Take 1 tablet by mouth daily. cholecalciferol, Vitamin D3, (Vitamin D3) 1,000 unit Tablet Take 10,000 Units by mouth daily. ubiquinone (coenzyme Q10) 100 mg Capsule Take 200 mg by mouth daily. citalopram (CELEXA) 20 mg tablet Take 20 mg by mouth daily. ketoconazole (NIZORAL) 2 % shampooIndications:Se borrheic dermatitis of scalp Apply to scalp and leave on for 5-10 minutes and wash out 3 times weekly 120 mL 5 02/17/2013 fluocinonide (LIDEX) 0.05 % external solutionIndications:S eborrheic dermatitis of scalp Apply topically 2 times daily as needed. Avoid eyes 60 mL 3 02/17/2013 gabapentin (Neurontin) 100 mg capsule Take 1 capsule by mouth 4 times daily. 120 capsule 3 10/16/2022 04/07/2024 documented as of this encounter Plan of Treatment Upcoming Encounters Date Type Department Care Team (Late st Contact Info) Description 07/21/2024 11:30 AM EST TH Visit (TeleHealth) [place] [address] Yovanny Garay MD [facility] [place] [address] documented as of this encounter Procedures Procedure Name Priority Date/Time Associated Diagnosis Comments CT CHEST WO CONTRAST (GENERIC) Routine 03/02/2023 9:36 AM EDT Pulmonary nodule documented in this encounter Results * CT Chest wo Contrast (Generic) (03/02/2023 9:36 AM EDT) Anatomical Region Laterality Modality Chest Computed Tomogra phy Impressions 03/02/2023 4:59 PM EDT Stable sub-5 mm left lower lobe pulmonary nodules. No routine follow-up is indicated. Small to moderate size hiatal hernia is similar to prior exam. Thank you for letting us participate in the care of this patient. ??If you are a health care provider and have any questions regarding this report, please contact the number below. ??For patients who have questions please contact the health nurse care manager that requested your imaging first. ? Narrative 03/02/2023 4:59 PM EDT EXAMINATION: CT CHEST WO CONTRAST (GENERIC) CLINICAL HISTORY: abnormal finding pulmonary nodule TECHNIQUE: Helical CT of the chest without intravenous contrast administration. Thin-section reconstructions as well as coronal and sagittal reformatted images were generated. COMPARISON: 05/07/2021. FINDINGS: Pulmonary parenchyma: Stable sub-5 mm pulmonary nodules in the left lower lobe (series 5 image 252, 266). No suspicious pulmonary nodule. No acute airspace disease. Airways: No central endobronchial abnormality. Pleura: No effusion. Lymph nodes: No lymphadenopathy. Heart and vasculature: Normal size of the heart. No significant pericardial effusion. Normal caliber of the thoracic aorta. Minimal coronary artery atherosclerotic calcification. Other mediastinal structures: Small to moderate size hiatal hernia. Upper abdomen: Stable subcentimeter hypoattenuating lesions in the liver parenchyma. Consistent with benign findings. Skeletal structures: No significant findings. Procedure Note Holly Huitron MD - 03/02/2023 EXAMINATION: CT CHEST WO CONTRAST (GENERIC) CLINICAL HISTORY: abnormal finding pulmonary nodule TECHNIQUE: Helical CT of the chest without intravenous contrastadministration. Thin-section reconstructions as well as coronal and sagittal reformattedimages were generated. COMPARISON: 05/07/2021. FINDINGS: Pulmonary parenchyma: Stable sub-5 mm pulmonary nodules in the left lowerlobe (series 5 image 252, 266). No suspicious pulmonary nodule. No acute airspace disease. Airways: No central endobronchial abnormality. Pleura: No effusion. Lymph nodes: No lymphadenopathy. Heart and vasculature: Normal size of the heart. No significantpericardial effusion. Normal caliber of the thoracic aorta. Minimal coronary artery atherosclerotic calcification. Other mediastinal structures: Small to moderate size hiatal hernia. Upper abdomen: Stable subcentimeter hypoattenuating lesions in the liver parenchyma. Consistent with benign findings. Skeletal structures: No significant findings. IMPRESSION Stable sub-5 mm left lower lobe pulmonary nodules. No routine follow-upis indicated. Small to moderate size hiatal hernia is similar to prior exam. Thank you for letting us participate in the care of this patient. If youare a health care provider and have any questions regarding this report,please contact the number below. For patients who have questions please contactthe health nurse care manager that requested your imaging first. Electronically signed by: Holly Dominique MD, [facility] [place] ([phone]), at 03/02/2023 4:59 PM Heide Nunn ADVERTISING INTERN IMG CT ORDERABLES documented in this encounter Visit Diagnoses Diagnosis Pulmonary nodule Solitary pulmonary nodule documented in this encounter Care Teams It Quality Analyst Relationship Specialty Start Date End Date Heide Nunn APRN [address] [place] [address] PCP - General Geriatric Medicine 11/20/20 documented as of this encounter
--- OUTSIDE RECORDS SUMMARY | 2024-05-26 00:17 | XMS_ITS | Encounter Summary ---
Author Organization [facility] Address [address] [place] [address] Care Team Providers Care Securities Counselor Name Role Phone Dianna Guthrie MD Primary Care Provider [phone] Reason for Visit * Reason Onset Date Comments Appointment Related 10/28/2020 Encounter Details Date Type Department Care Team ([facility] st Contact Info) Description 10/28/[address] [phone] Jorje Sosa MD [address] [place] [address], [address] [place] [address] Appointment Related Social History Tobacco Use Types Packs/Day Years Used Date Smoking Tobacco: Former Cigarettes Smokeless Tobacco: Never Alcohol Use Standard Drinks/Week Comments Yes 0 [...] on file documented as of this encounter Functional Status * Because of a physical, mental, or emotional condition, does this person have difficulty doing errands alone such as visiting a doctor's office or shopping? Answer Date of Assessment Author No 09/10/2020 12:50 EDT documented as of this encounter Mental Status * Because of a physical, mental, or emotional condition, does this person have serious difficulty concentrating, remembering, or making decisions? Answer Entry Date Author No 09/10/2020 12:50 EDT documented in this encounter Miscellaneous Notes * Telephone Encounter - Skyla Enriquez LPN - 10/28/2020 1030 EDT Attempted to contact patient regarding appt 11/12/20.left message with PCP regarding possibly anotherphone number documented in this encounter Plan of Treatment Upcoming Encounters Date Type Department Care Team (Late st Contact Info) Description 08/01/2024 11:40 EST Office Visit [facility] ENT- [address] [address] Jorje Sosa MD [address] [facility], [address] [place] [address] documented as of this encounter Visit Diagnoses Not on filedocumented in this encounter Care Teams Securities Counselor Relationship Specialty Start Date End Date Dianna Guthrie MD [address] [place] [address] PCP - General 09/10/20 06/27/23 documented as of this encounter
--- OUTSIDE RECORDS SUMMARY | 2024-05-26 00:17 | XMS_ITS | Encounter Summary ---
Author Organization [facility] Address [facility] [place] [address] Care Team Providers Care Switch Repairer Name Role Phone Heide Nunn APRN Primary Care Provider [phone] Encounter Details Date Type Department Care Team (Late st Contact Info) Description 02/11/2022 Telephone [place] [address] Yovanny Garay MD [facility] [place] [address] Social History Tobacco Use Types Packs/Day Years Used Date Smoking Tobacco: Former Cigarettes 1 4 1 - 1983 Smokeless Tobacco: Never Sex and Gender Information Value Date Recorded Sex Assigned at Not on file Gender Identity Not on file Sexual Orientation Not on file documented as of this encounter Miscellaneous Notes * Telephone Encounter - Irina Palencia RN - 02/11/2022 1:[address] Garay: Norma, ??Let her know that MRI of the cord is not normally used for monitoring purposes. Also, she shouldbe aware that she had an MRI of the cord earlier this year that had not showed any changes. I can discuss this with her more when I see her in f/u next month. ? Shamar I phoned pt and reviewed/instructed above. She states she just wanted to be sure we were not missing anything. Pt agrees with plan and verbalizes understanding. Plan: as above. * Telephone Encounter - Irina Palencia RN - 02/11/2022 11:15 AM EDT I will forward to Dr. Garay for review. * Telephone Encounter - Irina Palencia RN - 02/11/2022 11:14 AM EDT Copied from CRM #[id number]. Topic: Specialty Dept CRMs - Orders >> Feb 11, 2022 9:35 AM Quirino Nunez wrote: Orders Request Specialist: Yovanny Garay Relationship (if other than patient-full name): Kristina Sr, Pt Type of Request: [x] Input orders Type/Name of Order: Imaging -MRI spine - Kristina Sr, Pt, stated she had her MRI of the Brain done yesterday and is wondering why an MRI of the spine was not ordered when she has lesions on her spine. If Labs and Imaging: Date of Lab/Imaging/Testing Appt: n/a Date of PCP Appt: n/a Appt Type with PCP: Other: n/a Patient Requesting to Have Orders Sent to Facility Outside of [facility]: No documented in this encounter Plan of Treatment Upcoming Encounters Date Type Department Care Team (Late st Contact Info) Description 07/21/2024 11:30 AM EST TH Visit (TeleHealth) [place] [address] Yovanny Garay MD [facility] [place] [address] documented as of this encounter Visit Diagnoses Not on filedocumented in this encounter Care Teams Switch Repairer Relationship Specialty Start Date End Date Heide Nunn APRN [address] [place] [address] PCP - General Geriatric Medicine 11/20/20 documented as of this encounter
--- OUTSIDE RECORDS SUMMARY | 2024-05-26 00:17 | XMS_ITS | Encounter Summary ---
Author Organization [facility] Address [facility] [place] [address] Care Team Providers Care Auditor Name Role Phone Heide Nunn APRN Primary Care Provider [phone] Encounter Details Date Type Department Care Team (Latest Contact Info) Description 04/07/2024 Travel Social History Tobacco Use Types Packs/Day Years [...] AM EST TH Visit (TeleHealth) [place] [address] Yovanny Garay MD [facility] [place] [address] documented as of this encounter Visit Diagnoses Not on filedocumented in this encounter Care Teams Auditor Relationship Specialty Start Date End Date Heide Nunn APRN [address] [place] [phone] PCP - General Geriatric Medicine 11/20/20 documented as of this encounter
--- OUTSIDE RECORDS SUMMARY | 2024-05-26 00:17 | XMS_ITS | Encounter Summary ---
Author Organization [facility] Address [address] [place] [address] Care Team Providers Care Fitness Instructor Name Role Phone Dianna Guthrie MD Primary Care Provider [phone] Reason for Visit * Reason Comments Hoarse * Referral (Routine) - Receiving Office to Obtain Authorization Specialty Diagnoses / Procedures Referred By Savi matthew Referred To Contact Otolaryngology Diagnoses Chronic shortness of breath Vocal tremor Adama Ding MD Phone: tel: fax: [address] [address] Phone: tel: fax: Referral ID Status Reason Start Date Expiration Date Visits Requested Visits Authorized [id number] Receiving Office to Obtain Authorization 1 1 Encounter Details Date Type Department Care Team (Late st Contact Info) Description 02/18/2021 14:15 EDT Office Visit [address] [address] Jorje Sosa MD [address] [place] [address], [facility] [address] [place] [id number] Muscle tension dysphonia (Primary Dx); Adductor spasmodic dysphonia with tremor Social History Tobacco Use Types Packs/Day Years [...] 09/10/2020 12:50 EDT documented in this encounter Progress Notes * Jorje Sosa MD - 02/18/2021 1415 EDT Subjective: Chief Complaint Patient presents with ??? Hoarse Kristina Sr is a 60 y.o. female seen in follow-up from early September 2020 for dysphonia. She reports that for approximately the last 10 years has noticed a tremulous quality to her voice. She feels its been getting worse over the last year or so. She states that it becomes more noticeable when she is anxious or public speaking. She feels like it is less noticeable when she is having a relaxed conversation. She denies any significant dysphagia, throat pain, hemoptysis, or ear pain. She underwent flexible laryngoscopy at Dr. Ding's office in March 2020, which was significant for an overall normal exam with some mild tremulousness throughout her glottis and pharyngeal musculature. When I saw her several months ago, she presented with a strained voice with episodic breaks suggestive of adductor spasmodic dysphonia with tremor. There is also a component of muscle tension dysphonia. She was referred to voice therapy but unfortunately there was a miscommunication in scheduling and has not seen a speech pathologist until today during voice clinic. In the interim, she has been diagnosed with primary progressive MS for which she is seen at [facility]. She does not have a significant tobacco use history. Drinks 0-1 alcoholic beverages per week. Denies recreational drug use. 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 Portions of this note copied from her prior encounter with me on 09/10/2020 have been updated and reviewed. Objective: There were no vitals taken for this visit. Physical Exam Department of Otolaryngology PHYSICAL EXAMINATION CONSTITUTIONAL: VITAL SIGNS: Not reviewed APPEARANCE: The patient appears alert, cooperative, and comfortable. ABILITY TO COMMUNICATE / VOICE: Her voice is moderately strained and raspy with mild tremulous quality that is worse at the end of her sentences. Her voice more dysphonic when reading voiced phrases compared with unvoiced phrases. HEAD AND FACE: INSPECTION: Normal without apparent scars, lesions, or masses. PALPATION: There are no masses or sinus tenderness. SALIVARY GLANDS: Submandibular and Parotid glands are normal bilaterally FACIAL STRENGTH: Intact and symmetrical bilaterally EXTERNAL EAR & NOSE: No external ear or nose deformity noted EYES: EYES: normal EARS, NOSE, MOUTH AND THROAT: OTOSCOPY: Right external auditory canal: patent and non-inflamed Left external auditory canal: patent and non-inflamed Right tympanic membrane: intact without retraction, perforation or effusion Left tympanic membrane: intact without retraction, perforation or effusion WHISPER/TUNING FORK: Not assessed NOSE: normal turbinates and mucosa: septum in midline LIPS, TEETH & GUMS: normal for age ORAL CAVITY & OROPHARYNX: normal HYPOPHARYNX & PHARYNGEAL EMMANUEL: Not examined LARYNX: Not examined NASOPHARYNX: Not examined NECK: GENERAL: Supple, no asymmetry or crepitus, trachea midline THYROID: Normal LYMPHATIC: CERVICAL LYMPH NODES: No pathologic cervical lymphadenopathy noted Assessment/Plan: Encounter Diagnoses Name Primary? Muscle tension dysphonia Yes ??? Adductor spasmodic dysphonia with tremor Moderately severe hoarseness with adductor spasmodic dysphonia with tremor. She also has a significant component of muscle tension dysphonia contributing to the strained quality of her voice. She metwith Eun Capone CCC-MICROBIOLOGY LAB ANALYST in speech pathology today for a voice evaluation and therapy. She concurs with the diagnosis of spasmodic dysphonia and vocal tremor. They made some inroads in terms of her muscle tension dysphonia but her voice remains significantly hoarse and strained. I she is an appropriate candidate for laryngeal Botox injections. A handout describing the diagnosis and procedure was reviewed. She will take this under consideration and contact my office if and when she would like to proceed. documented in this encounter Plan of Treatment Upcoming Encounters Date Type Department Care Team (Late st Contact Info) Description 08/01/2024 11:40 EST Office Visit [facility] ENT- [address] [id number] Jorje Sosa MD [address] [facility], [address] [place] [id number] documented as of this encounter Visit Diagnoses Diagnosis Muscle tension dysphonia- Primary Dysphonia Adductor spasmodic dysphonia with tremor Other diseases of larynx documented in this encounter Care Teams Fitness Instructor Relationship Specialty Start Date End Date Dianna Guthrie MD [address] [place] [address] PCP - General 09/10/20 06/27/23 documented as of this encounter
--- OUTSIDE RECORDS SUMMARY | 2024-05-26 00:17 | XMS_ITS | Encounter Summary ---
Author Organization [facility] Address [facility] [place] [address] Care Team Providers Care Strategy Planning Consultant Name Role Phone Heide Nunn APRN Primary Care Provider [phone] Encounter Details Date Type Department Care Team (Latest Contact Info) Description 03/02/2023 Travel Social History Tobacco Use Types Packs/Day [...] AM EST TH Visit (TeleHealth) [place] [address] Yovanny Garay MD [facility] [place] [address] documented as of this encounter Visit Diagnoses Not on filedocumented in this encounter Care Teams Strategy Planning Consultant Relationship Specialty Start Date End Date Heide Nunn APRN [address] [place] [id number] PCP - General Geriatric Medicine 11/20/20 documented as of this encounter
--- OUTSIDE RECORDS SUMMARY | 2024-05-26 00:17 | XMS_ITS | Encounter Summary ---
Author Organization [facility] [place] [address] Care Team Providers Care Product Assurance Engineer Name Role Phone ArlineValerianoHeidedoreen SNOW Primary Care Provider [phone] Reason for Visit * Reason Onset Date Comments Reminder Appointment 10/09/2022 Encounter Details Date Type Department Care Team (Late st Contact Info) Description 10/09/2022 Telephone [place] [phone] Yovanny Garay MD [facility] [place] [address] Reminder Appointment Social History Tobacco Use Types Packs/Day Years [...] encounter Miscellaneous Notes * Telephone Encounter - Demetrice Toro CMA - 10/09/2022 9:58 AM EDT Unable to reach this patient by phone to review their medications and allergies prior to their upcoming tele-appointment with the Neurology provider. No message left. documented in this encounter Plan of Treatment Upcoming Encounters Date Type Department Care Team (Late st Contact Info) Description 07/21/2024 11:30 AM EST TH Visit (TeleHealth) [place] [address] Yovanny Garay MD [facility] [place] [address] documented as of this encounter Visit Diagnoses Not on filedocumented in this encounter Care Teams Product Assurance Engineer Relationship Specialty Start Date End Date Heide Nunn APRN [address] [facility] [place] [address] PCP - General Geriatric Medicine 11/20/20 documented as of this encounter
--- OUTSIDE RECORDS SUMMARY | 2024-05-26 00:17 | XMS_ITS | Encounter Summary ---
Author Organization [facility] Address [address] [place] [address] Care Team Providers Care Laborer Pullet Farm Name Role Phone Dianna Guthrie MD Primary Care Provider [phone] Heide Nunn APRN Unavailable [phone] Heide Nunn APRN Primary Care Provider [phone] Encounter Details Date Type Department Care Team (Late st Contact Info) Description 02/20/2021 Lab Requisition [facility] Pathology & Laboratory Medicine - [facility] [address] [place], [place] [address] Outr Resulting Lab, Provider Social History Tobacco Use Types Packs/Day Years [...] 09/10/2020 12:50 EDT documented in this encounter Plan of Treatment Upcoming Encounters Date Type Department Care Team (Late st Contact Info) Description 08/01/2024 11:40 EST Office Visit [address] [id number] Jorje Sosa MD [address] [place] [address], [address] [place] [address] documented as of this encounter Procedures Procedure Name Priority Date/Time Associated Diagnosis Comments CHRONIC HEPATITIS PROFILE, UNKNOWN TYPE Routine 02/20/2021 7:25 EDT documented in this encounter Results * CHRONIC HEPATITIS PROFILE, UNKNOWN TYPE (02/20/2021 7:25 EDT) Hep B Surface Ag Negative Negative 02/22/20 12:08 EDT [facility] Hep B Surface Ab, Quantitative <3.1 See Note mIU/mL 02/21/2021 12:08 T [facility] Comment: Reference Range for Hep B Surface Ab, Quant: Positive: >= 10.0 mIU/mL Negative: ??< 10.0 mIU/mL Patient is presumed to not be immune to infection with Hepatitis B Virus. Hep B Surface Ab, Qualitative Negative See Note 02/21/2021 12:08 T [facility] Comment: Reference Range for Hep B Surface Ab, Qual: Unvaccinated: ??Negative Vaccinated: ??Positive Hepatitis B Core Ab, Total Negative Negative 02/21/2021 12:08 EDT [facility] Hep C Antibody Negative Negative 02/21/2021 12:08 T [facility] Blood VENOUS BLOOD / Unknown 02/20/2021 7:25 EDT 02/20/2021 16:06 EDT us Provider Outr Resulting Lab CHEMISTRY & BLOOD GA S ORDERABLES Final Result [facility] [address] [place] [address] documented in this encounter Visit Diagnoses Not on filedocumented in this encounter Care Teams Laborer Pullet Farm Relationship Specialty Start Date End Date Dianna Guthrie MD [address] [place], [place] [address] PCP - General 09/10/20 06/27/23 Heide Nunn APRN [address] [place], [place] [phone] PCP - General [facility] 06/28/23 Heide Nunn APRN [address] [place], [place] [id number] [facility] 06/29/23 documented as of this encounter
--- OUTSIDE RECORDS SUMMARY | 2024-05-26 00:17 | XMS_ITS | Encounter Summary ---
Author Organization [facility] Address [address] [place] [address] Care Team Providers Care Continuing Education Director Name Role Phone Dianna Guthrie MD Primary Care Provider [phone] Heide Nunn APRN Unavailable [phone] Heide Nunn APRN Primary Care Provider [phone] Encounter Details Date Type Department Care Team (Late st Contact Info) Description 02/20/2021 Lab Requisition [facility] Pathology & Laboratory Medicine - [facility] [address] [place], [place] [address] Outr Resulting Lab, Provider Social History Tobacco [...] 08/01/2024 11:40 EST Office Visit [facility] ENT- [facility] [address] [place], [place] [address] Jorje Sosa MD [address] [facility], [address] [place] [phone] documented as of this encounter Procedures Procedure Name Priority Date/Time Associated Diagnosis Comments HIV 1/2 ANTIGEN AND ANTIBODY, 4TH GENERATION Routine 02/20/2021 7:25 EDT documented in this encounter Results * HIV 1/2 ANTIGEN AND ANTIBODY, 4TH GENERATION (02/20/2021 7:25 EDT) HIV 1 and 2 Antibody/p24 Antigen, 4th Generation Negative Negative 02/21/2021 11:[address] [facility] Comment: If acute HIV-1 infection is suspected in a high risk ??patient, submit plasma specimen for HIV-1 RNA quantitation test. Fourth Generation assay performed on the Siemens Centaur. Blood VENOUS BLOOD / Unknown 02/20/2021 7:25 EDT 02/20/2021 16:06 EDT us Provider Outr Resulting Lab IMMUNOLOGY AND SEROL OGY ORDERABLES Final Result [facility] [address] [place] [address] documented in this encounter Visit Diagnoses Not on filedocumented in this encounter Care Teams Continuing Education Director Relationship Specialty Start Date End Date Dianna Guthrie MD [address] [place] [address] PCP - General 09/10/20 06/27/23 Heide Nunn APRN [address] [place] [address] PCP - General [facility] 06/28/23 Heide Nunn APRN [address] [place] [address] [facility] 06/29/23 documented as of this encounter
--- OUTSIDE RECORDS SUMMARY | 2024-05-26 00:17 | XMS_ITS | Encounter Summary ---
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 Physician is requesting voice evaluation and possible voice therapy. Reason for Visit * Reason Comments New Patient Visit v c tremor * Referral (Routine) - Receiving Office to Obtain Authorization Specialty Diagnoses / Procedures Referred By Savi matthew Referred To Contact Otolaryngology Diagnoses Chronic shortness of breath Vocal tremor Adama Ding MD Phone: tel: fax: [address] [address] Phone: tel: fax: Referral ID Status Reason Start Date Expiration Date Visits Requested Visits Authorized [id number] Receiving Office to Obtain Authorization 1 1 Encounter Details Date Type Department Care Team (Late st Contact Info) Description 09/10/2020 13:00 EDT Office Visit [address] [address] Jorje Sosa MD [address] [place] [address] [address] [place] [address] Muscle tension dysphonia (Primary Dx); Adductor spasmodic dysphonia with tremor Social History Tobacco Use Types Packs/Day Years Used Date Smoking Tobacco: Former Cigarettes Smokeless Tobacco: Never Tobacco Cessation:Counseling Given: No Alcohol Use Standard Drinks/Week Comments Yes 0 [...] documented in this encounter Progress Notes * Elmer Nolasco MD - 09/10/2020 1300 EDT Subjective: Patient ID: Kristina Sr is an 59 y.o. female seen in consultation at the request of Adama Ding MD for evaluation of vocal tremor. Chief Complaint Patient presents with ??? New Patient Visit v c tremor HPI Kristina Sr is a 59 y.o. female who presents for evaluation of longstanding dysphonia. She reports that for approximately the last 10 years has noticed a tremulous quality to her voice. She feelsits been getting worse over the last year or so. She states that it becomes more noticeable when she is anxious or public speaking. She feels like it is less noticeable when she is having a relaxed conversation. She denies any significant dysphagia, throat pain, hemoptysis, or ear pain. She denies any personal or family history of essential tremor or other neurologic disorders. She has not noticed any tremor in any other part of her body. She has never been prescribed any medications for her dysphonia and has never been to formal speech therapy. She underwent flexible laryngoscopy at Dr. Ding's office in March 2020, which was significant for an overall normal exam with some mild tremulousness throughout her glottis and pharyngeal musculature. In addition, she endorses a 20+ year history of shortness of breath. She describes frequently needing to gasp for air and has trouble taking full deep breaths. She has seen multiple pulmonologists over the years who have been unable to give her a consistent diagnosis. Her PFTs have always been within normal limits. She last saw commercial attache approximately 6 years ago. She does not have a significant tobacco use history. Drinks 0-1 alcoholic beverages per week. Denies recreational drug use. 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 No past medical history on file. No past surgical history on file. No family history on file. Social Social History Socioeconomic History ??? Marital status: Single Spouse name: Not on file ??? Number of children: Not on file ??? Years of education: Not on file ??? Highest education level: Not on file Occupational History ??? Not on file Social Needs ??? Financial resource strain: Not on file ??? Food insecurity Worry: Not on file Inability: Not on file ??? Transportation needs Medical: Not on file Non-medical: Not on file Tobacco Use ??? Smoking status: Former Smoker Packs/day: 1.00 Types: Cigarettes ??? Smokeless tobacco: Never Used Substance and Sexual Activity ??? Alcohol use: Yes ??? Drug use: Not on file ??? Sexual activity: Not on file Lifestyle ??? Physical activity Days per week: Not on file Minutes per session: Not on file ??? Stress: Not on file Relationships ??? Social connections Talks on phone: Not on file Gets together: Not on file Attends temple service: Not on file Active member of club or organization: Not on file Attends meetings of clubs or organizations: Not on file Relationship status: Not on file ??? Intimate partner violence Fear of current or ex partner: Not on file Emotionally abused: Not on file Physically abused: Not on file Forced sexual activity: Not on file Other Topics Concern ??? Not on file Social History Narrative ??? Not on file No outpatient medications have been marked as taking for the 09/10/20 encounter (Office Visit) with Jorje Sosa MD. Allergies Allergen Reactions ??? Penicillins Review of Systems Constitutional: Negative for chills, fever, malaise/fatigue and weight loss. HENT: Negative for congestion, ear pain, hearing loss and sore throat. Eyes: Negative for blurred vision, double vision and photophobia. Respiratory: Positive for shortness of breath. Negative for cough, hemoptysis and wheezing. Cardiovascular: Negative for chest pain, palpitations, claudication and leg swelling. Gastrointestinal: Negative for heartburn. Musculoskeletal: Negative for joint pain and myalgias. Skin: Negative for rash. Neurological: Negative for sensory change, focal weakness and headaches. Endo/Heme/Allergies: Negative for environmental allergies. Does not bruise/bleed easily. - See HPI Objective: There were no vitals taken for [...] & OROPHARYNX: normal HYPOPHARYNX & PHARYNGEAL EMMANUEL: See flexible exam report LARYNX: See flexible exam report NASOPHARYNX: See flexible exam report NECK: GENERAL: Supple, no asymmetry or crepitus, trachea midline THYROID: Normal LYMPHATIC: CERVICAL LYMPH NODES: No pathologic cervical lymphadenopathy noted RESPIRATORY: LUNGS: Not examined CARDIOVASCULAR: CARDIOVASCULAR: Not examined NEUROLOGIC: NEUROLOGIC: Normal mood and affect Endoscopy Procedure Note Pre-procedure Diagnosis: Hoarseness / Dysphonia Post-procedure Diagnosis: same Indications: Evaluation of the larynx and immediate subglottis - unable to be visualized by mirror examination Anesthesia: Cophenylcaine Endoscopy Type: Laryngoscopy using a flexible laryngoscope Procedure Details: With the patient sitting upright in the examining chair informed consent was obtained. The left nostril was topically anesthetized with cotton pledgets. After waiting an appropriate period of time for anesthesia/ vasoconstriction to become effective (if this was applicable), the scope was passed into the left nostril and the nasopharynx, oropharynx, hypopharynx and larynx were examined. Condition: Patient tolerated procedure well and left the office in a stable condition. Complications: None Findings: Nasopharynx: Concentric collapse at the level of the lung with expiration. Otherwise normal exam ofthe choana and posterior nasopharyngeal wall. Oropharynx: Tongue base normal, vallecula clear without pooling of secretions Hypopharynx: Normal exam of the piriform sinuses bilaterally without pooling of secretions Larynx: Left and right true vocal folds without any lesions, masses, or evidence of dysplasia. Normal vocal fold mobility bilaterally with appropriate adduction. Mild tremulousness at the level of the glottis involving bilateral vocal folds. Mild erythema of the arytenoids, left greater than right.Subglottis is clear. Assessment/Plan: 1. Vocal tremor -patient presents with approximately 10 years of dysphonia that has gotten worse over the last year or so. On exam, her voice has a strained and raspy quality along with some subtle tremulousness that is more noticeable at the end of her sentences or at the end of a breath. Notably,her voice was significantly more dysphonic while reading voiced phrases aloud when compared with unvoiced phrases. Flexible laryngoscopy demonstrated a mild tremor at the level of the glottis involving bilateral true vocal folds without significant supraglottic squeeze. Taken together, I feel that her dysphonia is multifactorial in etiology, likely involving a combination of some spasmodic dysphonia, vocal tremor and possible muscle tension dysphonia. She would likely benefit from evaluation and treatment by a professional voice therapist. In addition, discussed that if she does not see significant improvements with voice therapy and she feels that her dysphonia is significantly impacting her quality of life, we could consider Botox injections of her vocal cords although this treatment ismore effective for spasmodic dysphonia than for vocal tremor. We will plan to see her back in 2-3 months in our multidisciplinary voice clinic. -Referral to voice therapy -Vocal hygiene and lifestyle modifications discussed, handout provided -Follow-up in 2 to 3 months in voice clinic Kristina was seen today for new patient visit. Diagnoses and all orders for this visit: Muscle tension dysphonia - AMB CONS/FOLLOW UP SPEECH & LANGUAGE PATHOLOGY Adductor spasmodic dysphonia with tremor - AMB CONS/FOLLOW UP SPEECH & LANGUAGE PATHOLOGY Radha Nolasco MD Otolaryngology PGY1 09/10/2020, 14:11 Attending statement: I have personally interviewed, examined and discussed Kristina Sr with Dr. Irvin Nolasco during today's visit. I have reviewed and edited his notes and concur. I was present for and performed flexible endoscopy as above. Encounter Diagnoses Name Primary? Muscle tension dysphonia Yes ??? Adductor spasmodic dysphonia with tremor Moderately severe hoarseness with suspected abductor spasmodic dysphonia with tremor. She also has a significant component of muscle tension dysphonia contributing to the strained quality of her voice. I have placed a referral with speech pathology for voice evaluation and possible voice therapy. Iwould also be interested in their opinion regarding her voice and a possible diagnosis of spasmodicdysphonia and/or vocal tremor. I plan on seeing her back in 2 or 3 months for follow-up during voice clinic with speech pathology present. Depending on how she responds to voice therapy and optimizedvocal hygiene/mechanincs, she may be a candidate for laryngeal Botox injections. Jorje Sosa MD documented in this encounter Plan of Treatment Upcoming Encounters Date Type Department Care Team (Late st Contact Info) Description 08/01/2024 11:40 EST Office Visit [facility] ENT- [address] [id number] Jorje Sosa MD [address] [place] [address], [address] [place] [id number] Scheduled Referrals Name Type Priority Associated Diagnoses Orde r Schedule AMB CONS/FOLLOW UP SPEECH & LANGUAGE PATHOLOGY Outpatient Referral Routine Muscle Tension Dysphonia Adductor Spasmodic Dysphonia With Tremor Ordered: 09/10/2020 documented as of this encounter Visit Diagnoses Diagnosis Muscle tension dysphonia- Primary Dysphonia Adductor spasmodic dysphonia with tremor Other diseases of larynx documented in this encounter Care Teams Train Director Relationship Specialty Start Date End Date Dianna Guthrie MD [address] [place] [address] PCP - General 09/10/20 06/27/23 documented as of this encounter
--- OUTSIDE RECORDS SUMMARY | 2024-05-26 00:17 | XMS_ITS | Encounter Summary ---
Author Organization [facility] Address [facility] [place] [address] Care Team Providers Care Household Appliance Assembler Name Role Phone Heide Nunn APRN Primary Care Provider Encounter Details Date Type Department Care Team (Late st Contact Info) Description 10/01/2023 9:30 AM EDT TH Visit (TeleHealth) [place] [address] Yovanny Garay MD [facility] [place] [address] Multiple sclerosis Social History Tobacco Use Types Packs/Day Years [...] Progress Notes * Yovanny Garay MD - 10/01/2023 9:30 AM EDT [id number] 25 minutes + 10 minutes EMR documentation DISEASE SUMMARY: 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 1.depression- she is not that depressed today and has not been teary during this visit. She has been seeing a therapist for years: Elisha Stuart in [place]. 2.SOB-this has been a chronic complain.She is seeing a biomass technician at [facility], a Dr.Brittany Weston, but is not seeming to improve at all. She has had some dysesthesias which I prescribed Gabapentin for last October, but she has not been taking it. We discussed this extensively and she will be trying it before our next visit. MS Symptom Review: Mood: Medications: Lifestyle: Neuropathic symptoms: Motor: Spasms/spasticity: Ambulation: Falls: Bladder: Bowel: Current Medications: No DMTs Assessment: Generally stable; no new symptoms attributable to her MS. Monitoring Plan: Inperson f/u in the fall; th in the spring at which time I will order a f/u MR brain Treatment Plan: As above. Will consider getting a monitoring MRI of the brain ordered when I see her again in 6 months. Follow-Up: 6 months in person. She is eager to see if there has been worsening I have served and continue to serve as the focal point of longitudinal care for chronic management of this patient's multiple sclerosis over the past years. MD Raji Plascencia Professor of Neurology Department of Neurology [facility] [place] [address] At least 15 minutes of this 25 minute Telehealth visit were spent in discussion of the topics outlined in the note above including diagnosis, therapy, and management issues. documented in this encounter Plan of Treatment Upcoming Encounters Date Type Department Care Team (Late st Contact Info) Description 07/21/2024 11:30 AM EST TH Visit (TeleHealth) [place] [address] Yovanny Garay MD [facility] [place] [address] documented as of this encounter Visit Diagnoses Diagnosis Multiple sclerosis documented in this encounter Care Teams Household Appliance Assembler Relationship Specialty Start Date End Date Heide Nunn APRN [address] [facility] [place] [address] PCP - General Geriatric Medicine 11/20/20 documented as of this encounter
--- OUTSIDE RECORDS SUMMARY | 2024-05-26 00:17 | XMS_ITS | Encounter Summary ---
Author Organization [facility] Address [address] [place] [address] Care Team Providers Care Freight Engineer Name Role Phone Arline Heide Perez APRN Unavailable [phone] Heide Nunn APRN Primary Care Provider [phone] Reason for Visit * Vascular Lab (Routine) - Authorization Not Required Specialty Diagnoses / Procedures Referred By Savi matthew Referred To Contact Diagnoses Varicose veins with pain Procedures US VARICOSE VEIN DUPLEX Lulu Oliveira MD [address] [place] [address] [address] [place] [address] Phone: tel: fax: [facility] Vascular Lab Referral ID Status Reason Start Date Expiration Date Visits Requested Visits Authorized [id number] Authorization Not Required 3 1 1 Encounter Details Date Type Department Care Team (Latest Contact Info) Description 08/12/2023 13:00 EST Ancillary Procedure Vascular Surgery and Endovascular Therapy - [facility] [address] [place] [address] Varicose veins with pain Social History Tobacco Use Types Packs/Day Years [...] Info) Description 08/01/2024 11:40 EST Office Visit [address] [id number] Jorje Sosa MD [address] [place] [address], [address] [place] [address] documented as of this encounter Procedures Procedure Name Priority Date/Time Associated Diagnosis Comments US VARICOSE VEIN DUPLEX LEFT Routine 08/12/2023 14:01 EST Varicose veins with pain documented in this encounter Results * US VARICOSE VEIN DUPLEX LEFT (08/12/2023 14:01 EST) Left GSMT kenji 0.64 cm MERGE CARDIO Left GSK kenji 0.35 cm MERGE CARDIO Left GSDT kenji 0.51 cm MERGE CARDIO Left GSPC kenji 0.79 cm MERGE CARDIO Left GSMC kenji 0.50 cm MERGE CARDIO Left GSPT kenji 0.71 cm MERGE CARDIO Left GSJ kenji 0.89 cm MERGE CARDIO Left GSJ reflux 3.1 s MERGE CARDIO Left GSPT reflux 4.5 s MERGE CARDIO Left GSMT reflux 5.0 s MERGE CARDIO Left GSDT reflux 5.7 s MERGE CARDIO Left GSK reflux 0.0 s MERGE CARDIO Left GSPC reflux 3.4 s MERGE CARDIO Left GSMC reflux 4.8 s MERGE CARDIO Left AAS kenji 0.45 cm MERGE CARDIO Left AAS reflux 0.0 s MERGE CARDIO Anatomical Region Laterality Modality Vascular Ultrasound Narrative 08/13/2023 7:43 EST ?Venous reflux in the left greater saphenous vein, no reflux in the short or anterior saphenous veins. No evidence of deep venous reflux in the left lower extremity. ?No evidence of deep or superficial venous thrombosis in the left lower extremity. Left Lower Venous Other The left external iliac, common femoral, proximal greater saphenous, proximal profunda femoris, femoral, and popliteal veins demonstrate normal Doppler flow/waveforms and compression. Venous HPI and Indications Lower extremity swelling. Venous Past Medical History Former tobacco use and Varicose veins. Hx: multiple sclerosis us Lulu Oliveira MD [facility] VASCULAR ORDERABLES Final Result documented in this encounter Visit Diagnoses Diagnosis Varicose veins with pain Varicose veins of lower extremities with other complications documented in this encounter Care Teams Freight Engineer Relationship Specialty Start Date End Date Heide Nunn APRN [address] [place] [address] PCP - General [facility] 06/28/23 Heide Nunn APRN [address] [place] [address] [facility] 06/29/23 documented as of this encounter
--- OUTSIDE RECORDS SUMMARY | 2024-05-26 00:17 | XMS_ITS | Encounter Summary ---
Author Organization [facility] Address [facility] [place] [address] Care Team Providers Care Pen Tester Name Role Phone Heide Nunn APRN Primary Care Provider Encounter Details Date Type Department Care Team (Latest Contact Info) Description 08/14/2021 Travel Social History Tobacco Use Types Packs/Day Years Used Date Smoking Tobacco: Former Cigarettes 1 1983 Smokeless Tobacco: Never Sex and Gender Information Value Date Recorded Sex Assigned at Not on file Gender Identity Not on file Sexual Orientation Not on file documented as of this encounter Plan of Treatment Upcoming Encounters Date Type Department Care Team (Late st Contact Info) Description 07/21/2024 11:30 AM EST TH Visit (TeleHealth) [place] [address] Yovanny Garay MD [facility] [place] [address] documented as of this encounter Visit Diagnoses Not on filedocumented in this encounter Care Teams Pen Tester Relationship Specialty Start Date End Date Heide Nunn APRN [address] [place] [id number] PCP - General Geriatric Medicine 11/20/20 documented as of this encounter
--- OUTSIDE RECORDS SUMMARY | 2024-05-26 00:17 | XMS_ITS | Encounter Summary ---
Author Organization [facility] Address [address] [place] [address] Care Team Providers Care Behavioral Specialist Name Role Phone Dianna Guthrie MD Primary Care Provider [phone] Heide Nunn APRN Unavailable [phone] Heide Nunn APRN Primary Care Provider [phone] Encounter Details Date Type Department Care Team (Late st Contact Info) Description 10/23/2020 Lab Requisition [facility] Pathology & Laboratory Medicine - [facility] [address] [place], [place] [address] Outr Resulting Lab, Provider Social History Tobacco [...] Info) Description 08/01/2024 11:40 EST Office Visit [facility] [address] [place], [place] [address] Jorje Sosa MD [address] [facility], [address] [place] [address] documented as of this encounter Procedures Procedure Name Priority Date/Time Associated Diagnosis Comments LYME AB Routine 10/23/2020 7:26 EDT HEPATITIS C AB W REFLEX TO HCV RNA BY PCR Routine 10/23/2020 7:26 EDT documented in this encounter Results * HEPATITIS C AB W REFLEX TO HCV RNA BY PCR (10/23/2020 7:26 EDT) Hep C Antibody Negative Negative 10/24/2020 10:23 EDT [facility] Blood VENOUS BLOOD / Unknown 10/23/2020 7:26 EDT 10/23/2020 15:43 EDT us Provider Outr Resulting Lab CHEMISTRY & BLOOD GA S ORDERABLES Final Result [facility] [address] [place] [address] * LYME AB (10/23/2020 7:26 EDT) Lyme Ab Negative Negative 10/24/2020 10:40 EDT [facility] Comment:New 3rd generation a ssay in use 11/15/2019 Blood VENOUS BLOOD / Unknown 10/23/2020 7:26 EDT 10/23/2020 15:44 EDT us Provider Outr Resulting Lab IMMUNOLOGY AND SEROL OGY ORDERABLES Final Result [facility] [address] [place] [address] documented in this encounter Visit Diagnoses Not on filedocumented in this encounter Care Teams Behavioral Specialist Relationship Specialty Start Date End Date Dianna Guthrie MD [address] [place] [address] PCP - General 09/10/20 06/27/23 Heide Nunn APRN [address] [place] [address] PCP - General [facility] 06/28/23 Heide Nunn APRN [address] [place] [address] [facility] 06/29/23 documented as of this encounter
--- OUTSIDE RECORDS SUMMARY | 2024-05-26 00:17 | XMS_ITS | Encounter Summary ---
Author Organization [facility] Address [address] [place] [address] Care Team Providers Care Insurance Follow Up Rep Name Role Phone Dianna Guthrie MD Primary Care Provider [phone] Reason for Visit * Reason Onset Date Comments Appointment Related 12/05/2020 Encounter Details Date Type Department Care Team ([facility] st Contact Info) Description 12/05/2020 Telephone [facility] Speech & Language [address] [place], [place] [id number] Vida Peña, VIRAL [address] [place], [place] [id number] Appointment Related Social History Tobacco Use Types [...] encounter Miscellaneous Notes * Telephone Encounter - Ariane Betty - 12/05/2020 1442 EDT Left message for patient to call department phone number to schedule an VOE. Betty Thakkar documented in this encounter Plan of Treatment Upcoming Encounters Date Type Department Care Team (Late st Contact Info) Description 08/01/2024 11:40 EST Office Visit [facility] ENT- [address] [address] Jorje Sosa MD [address] [place] [address], [address] [place] [phone] documented as of this encounter Visit Diagnoses Not on filedocumented in this encounter Care Teams Insurance Follow Up Rep Relationship Specialty Start Date End Date Dianna Guthrie MD [address] [place] [address] PCP - General 09/10/20 06/27/23 documented as of this encounter
--- OUTSIDE RECORDS SUMMARY | 2024-05-26 00:17 | XMS_ITS | Encounter Summary ---
[place] [address] Care Team Providers Care Large Engine Assembler Name Role Phone Heide Nunn APRN Primary Care Provider [phone] Reason for Referral * Diagnostic Test (Routine) - Closed Specialty Diagnoses / Procedures Referred By Savi matthew Referred To Contact Radiology Diagnoses Relapsing remitting multiple sclerosis Procedures MRI Brain wo Contrast Yovanny Garay MD [facility] [place] [address] [place] [address] Referral ID Status Reason Start Date Expiration Date V isits Requested Visits Authorized [id number] Closed Specialty Service Requested 09/26/2021 03/28/2023 1 1 Encounter Details Date Type Department Care Team (Late st Contact Info) Description 09/26/2021 10:30 AM EDT [place] [address] Yovanny Garay MD [facility] [place] [address] Relapsing remitting multiple sclerosis Social History Tobacco Use Types Packs/Day Years Used Date Smoking Tobacco: Former Cigarettes 1 4 1 - 1983 Smokeless Tobacco: Never Sex and Gender Information Value Date Recorded Sex Assigned at Not on file Gender Identity Not on file Sexual Orientation Not on file documented as of this encounter Last Filed Vital Signs Vital Sign Reading Time Taken Comments Blood Pressure 150/84 09/26/2021 10:39 AM EDT Pulse 66 09/26/2021 10:39 AM EDT Temperature - - Respiratory Rate - - Oxygen Saturation - - Inhaled Oxygen Concentration - - Weight 86.2 kg (190 lb) 09/26/2021 10:39 AM EDT Height 167.6 cm (5' 6) 09/26/2021 10:39 AM EDT Body Mass Index 30.67 09/26/2021 10:39 AM EDT documented in this encounter Progress Notes * Yovanny Garay MD - 09/26/2021 10:30 AM EDT [phone] [id number] This is a f/u visit for this 60 yo woman with MS. She came to the visit unaccompanied. DISEASE SUMMARY: Principal neurologic diagnosis: ??RRMS (2017 Chun criteria), CIS using earlier criteria Onset: CSF: pos Disease course at onset: CIS Current disease course: stable Relapses: CIS EDSS (10/2018): too early MS Severity Score (EDSS and Disease Duration): too early Treatment History Previous disease therapies: Current disease therapies: Imaging History Most recent MRI brain:?? Most recent MRI cervical spine:?? Most recent MRI thoracic spine: ?? Interval History: Generally doing well, but she wants an explanation for her SOB w exertion and is concerned it may be due to her MS. MS Symptom Review: Mood: Medications: Lifestyle: Neuropathic symptoms: Motor: Spasms/spasticity: Ambulation: Falls: Bladder: Bowel: ?? Current Medications: reviewed and updated in EMR BP 150/84 Pulse 66 Ht 167.6 cm (5' 6) Wt 86.2 kg (190 lb) BMI 30.67 kg/m?? 9 Hole-Peg Test Dominant Hand DH Trial 1 Time (seconds):: 25.58 seconds DH Trial 2 Time (seconds):: 25.21 seconds Non Dominant Hand Non DH Trial 1 Time (seconds):: 23.54 Non DH Trial 2 Time (seconds):: 23.99 25 Foot Walk Test Time 1: 4.34 Time 2: 4.57 Her walk test times are stable and her peg test times are improved. Assessment: Doing well. She is concerned about her shortness of breath, but is otherwise doing well. ?? Monitoring Plan: Will get a MRI brain for comparison- MRi activity would prompt me to strongly recommend immunomodulatory therapy. Treatment Plan: As above Follow-Up: 6 months. After brain MRI. MD Raji Plascencia Professor of Neurology Department of Neurology [facility] and [address] [address] At least 30 minutes of this 44 minute face to face visit were spent in discussion of the topics outlined in the note above including diagnosis, therapy, and management issues. documented in this encounter Plan of Treatment Upcoming Encounters Date Type Department Care Team (Late st Contact Info) Description 07/21/2024 11:30 AM EST TH Visit (TeleHealth) [place] [address] Yovanny Garay MD [facility] [place] [address] documented as of this encounter Results * MRI Brain wo Contrast (02/10/2022 1:33 PM EDT) Anatomical Region Laterality Modality Head Magnetic Resonan ce Impressions 02/10/2022 4:50 PM EDT Unchanged T2 hyperintense subcortical, periventricular and corpus callosal lesions, consistent with patient's known multiple sclerosis. No new lesions. I have personally reviewed the image(s) and the resident's interpretation and agree with the findings, Lulu Aquino MD at 02/10/2022 4:50 PM Thank you for letting us participate in the care of this patient. ??If you are a health care provider and have any questions regarding this report, please contact the number below. ??For patients who have questions please contact the health personal care worker that requested your imaging first. ? Electronically signed by: Lulu Aquino MD, [facility] ([phone]), at 02/10/2022 4:50 PM Narrative 02/10/2022 4:50 PM EDT EXAMINATION: MRI BRAIN WO CONTRAST CLINICAL HISTORY: Multiple sclerosis, monitor 60 yo woman w MS; any new lesions compared to 07/29 MRI; use MS protocol; no gadolinium TECHNIQUE: MRI of the brain performed without intravenous contrast administration. COMPARISON: MRI of brain and cervical spine dated 08/14/2021 FINDINGS: Unchanged size and number of T2 hyperintense subcortical and periventricular white matter lesions, measuring up to 15 mm in the left frontal lobe, where there is stable adjacent cortical/subcortical volume loss. Unchanged 9 mm T2 hyperintense lesion within this splenium of the corpus callosum. No new lesions. No areas of restricted diffusion. No mass, mass effect, midline shift, hemorrhage or hydrocephalus. Unchanged asymmetric mild enlargement of the left lateral ventricle compared to the right. Normal expected vascular flow voids. Normal bone marrow signal. The orbits are normal. Mild mucosal thickening of the maxillary sinuses. Procedure Note Lulu Aquino MD - 02/10/2022 EXAMINATION: MRI BRAIN WO CONTRAST CLINICAL HISTORY: Multiple sclerosis, monitor 60 yo woman w MS; any new lesions compared to 07/29 MRI; use MS protocol;no gadolinium TECHNIQUE: MRI of the brain performed without intravenous contrast administration. COMPARISON: MRI of brain and cervical spine dated 08/14/2021 FINDINGS: Unchanged size and number of T2 hyperintense subcortical andperiventricular white matter lesions, measuring up to 15 mm in the left frontal lobe,where there is stable adjacent cortical/subcortical volume loss. Unchanged 9 mmT2 hyperintense lesion within this splenium of the corpus callosum. No newlesions. No areas of restricted diffusion. No mass, mass effect, midline shift, hemorrhage or hydrocephalus.Unchanged asymmetric mild enlargement of the left lateral ventricle compared to theright. Normal expected vascular flow voids. Normal bone marrow signal. The orbits are normal. Mild mucosal thickeningof the maxillary sinuses. IMPRESSION Unchanged T2 hyperintense subcortical, periventricular and corpuscallosal lesions, consistent with patient's known multiple sclerosis. No newlesions. I have personally reviewed the image(s) and the resident's interpretationand agree with the findings, Lulu Aquino MD at 02/10/2022 4:50 PM Thank you for letting us participate in the care of this patient. If youare a health care provider and have any questions regarding this report,please contact the number below. For patients who have questions please contactthe health personal care worker that requested your imaging first. Yovanny Garay MD IMG MRI ORDERABLES documented in this encounter Visit Diagnoses Diagnosis Relapsing remitting multiple sclerosis Multiple sclerosis Relapsing remitting multiple sclerosis Multiple sclerosis documented in this encounter Care Teams Large Engine Assembler Relationship Specialty Start Date End Date Heide Nunn APRN [address] [place] [address] PCP - General Geriatric Medicine 11/20/20 documented as of this encounter
--- OUTSIDE RECORDS SUMMARY | 2024-05-26 00:17 | XMS_ITS | Encounter Summary ---
Author Organization [facility] [place] [address] Care Team Providers Care Show Jumping Instructor Name Role Phone Arline eHide SNOW Primary Care Provider [phone] Reason for Visit * Reason Onset Date Comments Reminder Appointment 03/25/2023 Encounter Details Date Type Department Care Team (Late st Contact Info) Description 03/25/2023 [place]phone [place] [id number] Yovanny Garay MD [facility] [place] [address] Reminder Appointment Social History Tobacco Use Types [...] Telephone Encounter - Demetrice Toro CMA - 03/25/2023 9:49 AM EDT Unable to reach this patient by phone to review their medications and allergies prior to their upcoming tele-appointment with the Neurology provider. No message left. documented in this encounter Plan of Treatment Upcoming Encounters Date Type Department Care Team (Late st Contact Info) Description 07/21/2024 11:30 AM EST TH Visit (TeleHealth) [place] [address] Yovanny Garay MD [facility] [place] [place] [address] documented as of this encounter Visit Diagnoses Not on filedocumented in this encounter Care Teams Show Jumping Instructor Relationship Specialty Start Date End Date Heide Nunn APRN [address] [facility] [address] [place] [address] PCP - General Geriatric Medicine 11/20/20 documented as of this encounter
--- OUTSIDE RECORDS SUMMARY | 2024-05-26 00:17 | XMS_ITS | Encounter Summary ---
Author Organization [facility] [place] [address] Care Team Providers Care Floor Manager Name Role Phone ArlineValerianoHeidedoreen SNOW Primary Care Provider [phone] Reason for Visit * Reason Onset Date Comments Reminder Appointment 09/22/2023 Encounter Details Date Type Department Care Team (Late st Contact Info) Description 09/22/2023 [place] [id number] Yovanny Garay MD [facility] [place] [address] Reminder Appointment Social History Tobacco Use Types [...] Telephone Encounter - Demetrice Toro CMA - 09/22/2023 11:22 AM EDT Unable to reach this patient by phone to review their medications and allergies prior to their upcoming tele-appointment with the Neurology provider. No message left. documented in this encounter Plan of Treatment Upcoming Encounters Date Type Department Care Team (Late st Contact Info) Description 07/21/2024 11:30 AM EST TH Visit (TeleHealth) [place] [address] Yovanny Garay MD [facility] [place] [address] documented as of this encounter Visit Diagnoses Not on filedocumented in this encounter Care Teams Floor Manager Relationship Specialty Start Date End Date Heide Nunn APRN [address] [facility] [address] PCP - General Geriatric Medicine 11/20/20 documented as of this encounter
--- OUTSIDE RECORDS SUMMARY | 2024-05-26 00:17 | XMS_ITS | Clinical Summary ---
Author Organization [facility] Address [facility] [place] [address] Care Team Providers Care Plate Keeper Name Role Phone Heide Nunn APRN Primary Care Provider Allergies Active Allergy Reactions Criticality Noted Date Comments Penicillins 02/17/2013 Red Wine Extract Shortness Of Breath High 11/20/2020 Medications Medication Sig Dispensed Refills Start Date End Date Status citalopram (CELEXA) 20 mg tablet Take 20 mg by mouth daily. Active ketoconazole (NIZORAL) 2 % shampooIndications :Seborrheic dermatitis of scalp Apply to scalp and leave on for 5-10 minutes and wash out 3 times weekly 120 mL 5 02/17/2013 Active Additional Information Patient not taking.Reported on 07/18/2021 fluocinonide (LIDEX) 0.05 % external solutionIndication s:Seborrheic dermatitis of scalp Apply topically 2 times daily as needed. Avoid eyes 60 mL 3 02/17/2013 Active Additional Information Patient not taking.Reported on 07/18/2021 multivitamin (THERAGRAN) Tablet Take 1 tablet by mouth daily. Active cholecalciferol, Vitamin D3, (Vitamin D3) 1,000 unit Tablet Take 10,000 Units by mouth daily. Active ubiquinone (coenzyme Q10) 100 mg Capsule Take 200 mg by mouth daily. Active UNABLE TO FIND daily. lechitine- granules Active fish oil-omega-3 fatty acids 1,000 mg Capsule Take 2 g by mouth as needed. Active UNABLE TO FIND daily. ceralogic Acti ve ascorbic acid (LIO-C ORAL) Take 3 capsules by mouth as needed. Active UNABLE TO FIND 1 capsule daily. gotukola Active lactobacillus rhamnosus, GG, (CULTURELLE) 10 billion cell Capsule Take 1 capsule by mouth as needed. Active MAGNESIUM CITRATE ORAL Take 2 capsules by mouth daily. Active acetaminophen (Tylenol) 500 mg tablet as needed for Pain. 03/29/2019 Activ e Magnesium Glycinate 100 mg Tablet daily. 09/15/2021 Active gabapentin (Neurontin) 100 mg capsule Take 2 capsules by mouth 4 times daily. 90 capsule 5 04/07/2024 Active Active Problems No known active problems Encounters Date Type Department Care Team Description 04/07/2024 10:30 AM EDT [place] [address] Yovanny Garay MD Multiple sclerosis 04/07/2024 Travel from Last 3 Months Social History Tobacco Use Types Packs/Day Years Used Date Smoking Tobacco: Former Cigarettes 1 4 1 - 1983 Smokeless Tobacco: Never Alcohol Use Standard Drinks/Week Comments Never 0 (1 standard drink = 0.6 oz pur e alcohol) Sex and Gender Information Value Date Recorded Sex Assigned at Not on file Gender Identity Not on file Sexual Orientation Not on file Last Filed Vital Signs Vital Sign Reading Time Taken Comments Blood Pressure 132/79 04/07/2024 10:13 AM EDT Pulse 66 04/07/2024 10:13 AM EDT Temperature 36.5 ??C (97.7 ??F) 05/07/2021 3:22 PM ES T Respiratory Rate 16 05/07/2021 3:22 PM EST Oxygen Saturation 99% 04/07/2024 10:13 AM EDT Inhaled Oxygen Concentration - - Weight 80.3 kg (177 lb) 04/07/2024 10:13 AM EDT weighed Height 165.1 cm (5' 5) 04/07/2024 10:13 AM EDT Body Mass Index 29.45 04/07/2024 10:13 AM EDT Plan of Treatment Upcoming Encounters Date Type Department Care Team (Late st Contact Info) Description 07/21/2024 11:30 AM EST TH Visit (TeleHealth) [place] [address] Yovanny Garay MD [facility] [place] [address] Health Maintenance Due Date Last Done Comments CT Colonography 1961 Colonoscopy 1960 Colorectal Cancer Screening 1960 FIT DNA 1960 FIT 1960 Sigmoidoscopy (10 year) with FIT yearly 1961 Sigmoidoscopy 1960 HIV screen 11/06/1979 Hepatitis C Screening 11/06/1979 Tetanus/Diphtheria/Pertussis Vaccines (1 - Tdap) 11/05 HPV test 11/06/1991 PAP Smear 11/06/1991 Breast Cancer Share Decision Needed 2001 Breast Cancer screening 2001 Diabetes Screening (HgbA1C or Glucose) 2001 Zoster vaccine (1 of 2) 11/06/2011 Advance Directive 2016 Covid-19 Vaccine (2 - season) 02/06/202404/2022 Influenza (Flu) vaccine (1 o f 1 - Influenza standard series) 02/06/2024 Advance Directives Documents on File Type Date Recorded Patient Veterinarian Epidemiologist Expl anation Personal Veterinarian Epidemiologist 01/20/2021 2:17 PM nish quezada Care Teams Plate Keeper Relationship Specialty Start Date End Date Heide Nunn APRN [address] [place], [place] [id number] PCP - General Geriatric Medicine 11/20/20
--- OUTSIDE RECORDS SUMMARY | 2024-05-26 00:17 | XMS_ITS | Encounter Summary ---
Author Organization [facility] Address [address] [place] [address] Care Team Providers Care Fruit Picker Name Role Phone Unavailable Primary Care Provider Unavailabl e Encounter Details Date Type Department Care Team (Late st Contact Info) Description 11/16/2005 Results Only [facility] - [place] conversion [address] [place] [address] Trish Trinh MD [address] [place] [id number] Social History Tobacco Use Types Packs/Day Years [...] Info) Description 08/01/2024 11:40 EST Office Visit [facility] ENT- Main [place] [address] [place] [address] Jorje Sosa MD [address] [facility], [address] [place] [id number] documented as of this encounter Procedures Procedure Name Priority Date/Time Associated Diagnosis Comments CYTOPATHOLOGY Routine 11/16/2005 0:00 EDT documented in this encounter Results * CYTOPATHOLOGY (11/16/2005 0:00 EDT) Pathology Report: CYTOPATHOLOGY REPORT Reports generated via electronic interface contain original data; however they are lacking the format of the original report. Caution should be taken when reading/interpreti ng unformatted reports. Name: ? KRISTINA SHEFFIELD ? Accession #: ? [id number] : ? 1960 (Age: 45) ??F ?Collect Date: ? 11/16/2005 Location: ? [facility] ? Receive Date: ? 11/18/2005 Provider: ?TRISH TRINH MD Copy to: ? Specimen/Source: ?ThinPrep Pap Test, Vagina/Cervix/Endo cervix, processed on [employer] ThinPrep Imaging System, with manual evaluation Last Menstrual Period: ? 1 week Other: ? Additional clinical information: 1st pap here ? SPECIMEN ADEQUACY ? Satisfactory for Evaluation - transformation zone component absent - scant squamous epithelial component GENERAL CATEGORIZATION ? Epithelial Cell Abnormality INTERPRETATION ? Squamous Cell Abnormality - Atypical squamous cells, undetermined significance. EDUCATIONAL NOTES/RECOMMENDATI ONS ? [facility] recommends following the 2001 Consensus Guidelines for the Management of Women with Cervical Cytological Abnormalities (SUDHEER,2002;287:212 0-9). Management algorithms have been distributed by [facility] and are available online at www.ASCCP.org. ? Document reviewed and electronically signed by: ? SEFERINO DOSS MD ? Report Date: ??11/23/2005 17:46 End of Report [facility] 11/16/2005 11/18/2005 us Trish Trinh MD PATHOLOGY ORDERABLES Final Resu lt [facility] [address] [place] [address] documented in this encounter Visit Diagnoses Not on filedocumented in this encounter
--- OUTSIDE RECORDS SUMMARY | 2024-05-26 00:17 | XMS_ITS | Encounter Summary ---
Author Organization [facility] Address [address] [place] [address] Care Team Providers Care Braze Operator Name Role Phone Unknown, Provider Primary Care Provider Unava ilable Encounter Details Date Type Department Care Team (Late st Contact Info) Description 02/27/2019 Results Only [facility]- [facility] [phone] Swathi West, DO [address] [place] [address] Social History Tobacco Use Types Packs/Day Years [...] Info) Description 08/01/2024 11:40 EST [facility] [place] [address] [place], [place] [address] Jorje Sosa MD [address] [facility], [address] [place] [phone] documented as of this encounter Procedures Procedure Name Priority Date/Time Associated Diagnosis Comments PAP TEST- RESULT ONLY Routine 02/27/2019 0:00 EDT documented in this encounter Results * PAP TEST- RESULT ONLY (02/27/2019 0:00 EDT) Pathologist [facility] Pathology Report: CYTOPATHOLOGY REPORT Reports generated via electronic interface contain original data; however they are lacking the format of the original report. Caution should be taken when reading/interpreti ng unformatted reports. Name: ? KRISTINA SHEFFILED ? Accession #: ? [id number] ? : ? 1960 (Age: 58) ??F ?Collect Date: ? 02/27/2019 ? Location: ? [facility] ? Receive Date: ? 03/01/2019 ? Provider: LAY NUNN STOVE CARRIAGE OPERATOR Copy to: ? Final Report SPECIMEN ADEQUACY ? Satisfactory for Evaluation - transformation zone component present GENERAL CATEGORIZATION ? Negative for Intraepithelial Lesion or Malignancy ?? Last Menstrual Period: 02/19/19 Other: Additional clinical information: Z12.4 Z11.51 Specimen/Source: ??Pap Test, Cervix, ThinPrep Imaging System with manual evaluation Document reviewed and electronically signed by: ? IRLANDA Lee(ASCP) ? Report ??Date: 03/02/2019 15:59 HPV with Pap Test ? Date Ordered: ? 03/02/2019 ? Status: ?? Signed Out ?Date Complete: ? 03/03/2019 ? By: ??System Interface ? Date Reported: ? 03/03/2019 ? Interpretation RESULT: Negative for HPV. No E6 or E7 mRNA is detected from HPV types 16,18,31,33,35, 39,45,51,52,56,58, 59,66, and 68 by senior energy analyst mediated amplification. Comments Document reviewed and electronically signed by: ? System Interface ? Report date: 03/03/2019 By the signature above, the attending physician certifies that he/she has personally conducted a gross and/or microscopic examination of the described specimens and rendered or confirmed the above diagnosis. End of Report [facility] 02/27/2019 03/01/2019 us Lay Nunn STOVE CARRIAGE OPERATOR PATHOLOGY ORDERABLES Emelyn peacock Result [facility] [address] [place] [address] documented in this encounter Visit Diagnoses Not on filedocumented in this encounter Care Teams Braze Operator Relationship Specialty Start Date End Date Unknown, Provider, PCP - General 04/29/15 09/09/20 documented as of this encounter
--- OUTSIDE RECORDS SUMMARY | 2024-05-26 00:17 | XMS_ITS | Encounter Summary ---
Author Organization [facility] Address [address] [place] [address] Care Team Providers Care Director Of Social Work Name Role Phone Heide Nunn EDY Unavailable [phone] ArlineHeide EDY Primary Care Provider [phone] Reason for Visit * Reason Comments Follow-up Muscle tension dysph onia Encounter Details Date Type Department Care Team (Late st Contact Info) Description 06/29/2023 10:00 EST Office Visit [facility]- [address] [address] Jorje Sosa MD [address] [place] [address], [address] [place] [address] Muscle tension dysphonia (Primary Dx); [...] Progress Notes * Jorje Sosa MD - 06/29/2023 1000 EST Subjective: Chief Complaint Patient presents with Follow-up Muscle tension dysphonia Kristina Sr is a 62 y.o. female seen in follow-up from February 2021 for dysphonia. She reports that for approximately the last 10-12 years she has noticed a tremulous quality to her voice. She feels it has been getting worse over the several. She states that it becomes more noticeable [...] and pharyngeal musculature. 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 There was also a component of muscle tension dysphonia. She met with uEn Capone CCC-INSPECTOR AIDE in speech pathology during voice clinic in 2020. 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 They made some inroads in terms of her muscle tension dysphonia but her voice remained significantly hoarse and strained. Laryngeal Botox injections were discussed and offered but never pursued. She is planning on holding off on injectionsuntil she retires in several years. She has primary progressive MS for which she is seen at [facility]. She hasbeen working with a respiratory therapist for pulmonary rehab with concern for diaphragmatic weakness which may not be related to her MS. She does not have a significant tobacco use history. Drinks 0-1 alcoholic beverages per week. Denies recreational drug use. 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 Normal arytenoids, posterior commissure. Subglottis is clear. Assessment/Plan: Encounter Diagnoses Name Primary? 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 She also has a significant component of muscle tension dysphonia contributing to the strained quality of her voice. She metwith Eun Capone CCC-INSPECTOR AIDE in speech pathology on 2000 during voice neck. 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 They made some inroads in terms of her muscle tension dysphonia but her voice remains significantly hoarse and strained. She is an appropriate candidate for laryngeal Botox injections. A handout describing the diagnosis and procedure was reviewed. She will take this under consideration and contact my office if and when she would like to proceed but will likely hold off for several more years until she retires. In the meantime, she will continue to work with her respiratory therapist and neurologist regarding her diaphragmatic issues and MS, optimization of which may have some modest benefit in terms of voice. Vocal hygiene including proper vocal mechanics and breath support were reviewed. Formal voice therapy may for some benefit in the future but she chooses to hold off for now, which is reasonable. I will see her back in 1 year for follow-up, sooner with deterioration voice or other concerns I spent a total of 30 minutes on the date of this encounter meeting with the patient and reviewing documentation/coordinating care as described in the above note. This was separate from any procedures performed at the time of the visit. Jorje Sosa MD documented in this encounter Plan of Treatment Upcoming Encounters Date Type Department Care Team (Late st Contact Info) Description 08/01/2024 11:40 EST Office Visit [facility] ENT- [place] [address] [place] [address] Jorje Sosa MD [address] [facility], [address] [place] [id number] documented as of this encounter Visit Diagnoses Diagnosis Muscle tension dysphonia- Primary Dysphonia Adductor spasmodic dysphonia with tremor Other diseases of larynx documented in this encounter Historical Medications * This list may reflect changes made after this encounter. ZINC ORAL Take by mouth. multivitamin (TAB-A-QUENTIN) tablet Take 1 Tablet by mouth daily. cholecalciferol, Vitamin D3, 25 mcg (1,000 unit) tablet Take 10 Tablets by mouth daily. added in this encounter Care Teams Director Of Social Work Relationship Specialty Start Date End Date Heide Nunn APRN [place] [facility] [place] [address] PCP - General Family [facility] 06/28/23 Heide Nunn APRN [place] [facility] [place] [place] [address] Family [facility] 06/29/23 documented as of this encounter
--- OUTSIDE RECORDS SUMMARY | 2024-05-26 00:17 | XMS_ITS | Encounter Summary ---
Author Organization [facility] Address [facility] [place] [address] Care Team Providers Care Cad Operator Name Role Phone Heide Nunn APRN Primary Care Provider [phone] Encounter Details Date Type Department Care Team (Late st Contact Info) Description 02/16/[address] [place] [phone] Jaelyn Xie Social History Tobacco Use Types Packs/Day Years Used Date Smoking Tobacco: Former Cigarettes 1 4 1983 Smokeless Tobacco: Never Alcohol Use Standard [...] AM EST TH Visit (TeleHealth) [place] [address] Yovanny Garay MD [facility] [place] [address] documented as of this encounter Visit Diagnoses Not on filedocumented in this encounter Care Teams Cad Operator Relationship Specialty Start Date End Date Heide Nunn APRN [address] [place] [address] PCP - General Geriatric Medicine 11/20/20 documented as of this encounter
--- OUTSIDE RECORDS SUMMARY | 2024-05-26 00:17 | XMS_ITS | Encounter Summary ---
Author Organization [facility] Address [address] [place] [address] Care Team Providers Care Position Clerk Name Role Phone Dianna Guthrie MD Primary Care Provider [phone] Heide Nunn APRN Unavailable [phone] Heide Nunn APRN Primary Care Provider [phone] Encounter Details Date Type Department Care Team (Late st Contact Info) Description 10/23/2020 Lab Requisition [facility] Pathology & Laboratory Medicine - [facility] [address] [place], [place] [address] Outr Resulting Lab, Provider Social History Tobacco [...] Info) Description 08/01/2024 11:40 EST Office Visit [facility] ENT- [facility] [address] [place], [place] [address] Jorje Sosa MD [address] [facility], [address] [place] [phone] documented as of this encounter Procedures Procedure Name Priority Date/Time Associated Diagnosis Comments HIV 1/2 ANTIGEN AND ANTIBODY, 4TH GENERATION Routine 10/23/2020 7:26 EDT documented in this encounter Results * HIV 1/2 ANTIGEN AND ANTIBODY, 4TH GENERATION (10/23/2020 7:26 EDT) Pathologist [facility] HIV 1 and 2 Antibody/p24 Antigen, 4th Generation Negative Negative 10/24/2020 10:03 EDT [facility] Comment: If acute HIV-1 infection is suspected in a high risk ??patient, submit plasma specimen for HIV-1 RNA quantitation test. Fourth Generation assay performed on the Siemens Centaur. Blood VENOUS BLOOD / Unknown 10/23/2020 7:26 EDT 10/23/2020 15:43 EDT us Provider Outr Resulting Lab IMMUNOLOGY AND SEROL OGY ORDERABLES Final Result [facility] [address] [place] [address] documented in this encounter Visit Diagnoses Not on filedocumented in this encounter Care Teams Position Clerk Relationship Specialty Start Date End Date Dianna Guthrie MD [address] [place] [address] PCP - General 09/10/20 06/27/23 Heide Nunn APRN [address] [place] [address] PCP - General [facility] 06/28/23 Heide Nunn APRN [address] [place] [address] [facility] 06/29/23 documented as of this encounter
--- OUTSIDE RECORDS SUMMARY | 2024-05-26 00:17 | XMS_ITS | Encounter Summary ---
Author Organization [facility] Address [facility] [place] [address] Care Team Providers Care Outside Physical Damage Appraiser Name Role Phone Heide Nunn APRN Primary Care Provider [phone] Reason for Visit * Reason Onset Date Comments Appointment 06/03/2023 Encounter Details Date Type Department Care Team (Late st Contact Info) Description 06/03/2023 [place] [phone] Yovanny Garay MD [facility] [place] [address] Appointment Social History Tobacco Use Types Packs/Day Years Used Date Smoking Tobacco: Former Cigarettes 1 - 1983 Smokeless Tobacco: Never Alcohol Use Standard Drinks/Week Comments Never 0 (1 standard drink = 0.6 oz pur e alcohol) Sex and Gender Information Value Date Recorded Sex Assigned at Not on file Gender Identity Not on file Sexual Orientation Not on file documented as of this encounter Miscellaneous Notes * Telephone Encounter - Graciela Plasencia - 06/03/2023 1:47 PM EST Scheduling Instructions Provider: Dr Garay Visit Type (paste LOYD Instructions or manually enter): Return in about 6 months (around 10/02/2023) for Telehealth If EMG Visit needed list diagnosis for the EMG to be used in Decision Tree: Appt Note: RRMS Additional Info Needed: documented in this encounter Plan of Treatment Upcoming Encounters Date Type Department Care Team (Late st Contact Info) Description 07/21/2024 11:30 AM EST TH Visit (TeleHealth) [place] [address] Yovanny Garay MD [facility] [place] [address] documented as of this encounter Visit Diagnoses Not on filedocumented in this encounter Care Teams Outside Physical Damage Appraiser Relationship Specialty Start Date End Date Heide Nunn APRN [address] [place] [address] PCP - General Geriatric Medicine 11/20/20 documented as of this encounter
--- OUTSIDE RECORDS SUMMARY | 2024-05-26 00:17 | XMS_ITS | Encounter Summary ---
Author Organization [facility] Address [facility] [place] [address] Care Team Providers Care Tester Compressed Gases Name Role Phone Arline Heide SNOW Primary Care Provider Encounter Details Date Type Department Care Team (Latest Contact Info) Description 04/02/2023 11:00 AM EDT TH Visit (TeleHealth) [place] [address] Yovanny Garay MD [facility] [place] [place] [address] Relapsing remitting multiple sclerosis Social History Tobacco [...] Progress Notes * Yovanny Garay MD - 04/02/2023 11:00 AM EDT [id number] 31 minutes + 10 minutes EMR documentation Telehealth because of pandemic. DISEASE SUMMARY: Principal neurologic diagnosis: RRMS (2017 [...] Generally doing well, from the MS standpoint, but not so well in toto because: 1.depression- she is teary today saying she is lonely and misses her workplace which closed for thewinter season a few weeks ago. It will reopen in October. She has a history of depression and has been on anti-depressants in the past. She has been seeing a therapist for years: Elisha Stuart in [place]. 2.SOB-this has been a chronic complaint but she is complaining of it more today. She once again is asking about whether her MS could be causing the SOB, but I told her it was very unlikely. She is seeing a hardwood floor installer at [facility], a Dr.Brittany Weston. She has had some dysesthesias which I prescribed Gabapentin for last October, but we didn't get a chance to discuss this today. MS Symptom Review: Mood: Medications: Lifestyle: Neuropathic symptoms: Motor: Spasms/spasticity: Ambulation: Falls: Bladder: Bowel: Current Medications: No DMTs Assessment: Generally stable; no new symptoms attributable to her MS. Monitoring Plan: MRI brain was stable Treatment Plan: As above. Will consider getting a monitoring MRI of the brain ordered when I see her again in 6 months. Follow-Up: 6 months by telehealth. MD Raji Plascencia Professor of Neurology Department of Neurology [facility] [place] [address] At least 20 minutes of this 31 minute Telehealth visit were spent in discussion of the topics outlined in the note above including diagnosis, therapy, and management issues. documented in this encounter Plan of Treatment Upcoming Encounters Date Type Department Care Team (Late st Contact Info) Description 07/21/2024 11:30 AM EST TH Visit (TeleHealth) [place] [address] Yovanny Garay MD [facility] [place] [address] documented as of this encounter Visit Diagnoses Diagnosis Relapsing remitting multiple sclerosis Multiple sclerosis documented in this encounter Care Teams Tester Compressed Gases Relationship Specialty Start Date End Date Heide Nunn APRN [address] [place], [place] [address] [address] PCP - General Geriatric Medicine 11/20/20 documented as of this encounter
--- OUTSIDE RECORDS SUMMARY | 2024-05-26 00:17 | XMS_ITS | Encounter Summary ---
Author Organization [facility] [place] [address] Care Team Providers Care Senior Air Director Name Role Phone ArlineValerianoHeidedoreen SNOW Primary Care Provider [phone] Reason for Visit * Reason Onset Date Comments Reminder Appointment 12/28/2022 Encounter Details Date Type Department Care Team (Late st Contact Info) Description 12/28/2022 Telephone [place] [phone] Yovanny Garay MD [facility] [place] [address] Reminder Appointment Social History Tobacco Use Types [...] Telephone Encounter - Demetrice Toro CMA - 12/28/2022 10:46 AM EDT Unable to reach this patient by phone to review their medications and allergies prior to their upcoming tele-appointment with the Neurology provider. No message left. documented in this encounter Plan of Treatment Upcoming Encounters Date Type Department Care Team (Late st Contact Info) Description 07/21/2024 11:30 AM EST TH Visit (TeleHealth) [place] [address] Yovanny Garay MD [facility] [place] [address] documented as of this encounter Visit Diagnoses Not on filedocumented in this encounter Care Teams Senior Air Director Relationship Specialty Start Date End Date Heide Nunn APRN [address] [facility] [place] [place] [address] PCP - General Geriatric Medicine 11/20/20 documented as of this encounter
--- OUTSIDE RECORDS SUMMARY | 2024-05-26 00:17 | XMS_ITS | Encounter Summary ---
Author Organization [facility] Address [address] [place] [address] Care Team Providers Care Reliability Technician Name Role Phone Heide Nunn CARRIAGE SETTER Unavailable [phone] Heide Nunn CARRIAGE SETTER Primary Care Provider [phone] Reason for Visit * Reason Comments Consult * Referral (Routine) - Receiving Office to Obtain Authorization Specialty Diagnoses / Procedures Referred By Savi matthew Referred To Contact Vascular Surgery Diagnoses Asymptomatic varicose veins of left lower extremity Heied Nunn, CARRIAGE SETTER [address] [place] [address] Phone: tel: fax: V[facility] Surgery [facility] Endovascular Therapy - [address] [address] Phone: tel: fax: Referral ID Status Reason Start Date Expiration Date Visits Requested Visits Authorized [id number] Receiving Office to Obtain Authorization 1 1 Encounter Details Date Type Department Care Team (Late st Contact Info) Description 08/12/2023 14:00 EST Initial consult [facility] - [address] [id number] Lulu Oliveira MD [address] [place] [address], [address] [place] [address] Venous insufficiency of left lower extremity (Primary Dx) Social History Tobacco Use Types Packs/Day Years [...] Body Mass Index 29.61 08/12/2023 1409 EST documented in this encounter Functional Status * Because of [...] documented in this encounter Progress Notes * Lulu Oliveira MD - 08/12/2023 1400 EST Images from the original note were not included. Subjective: Kristina Sr is a 62 y.o. female who was referred by Heide Nunn for evaluation of varicose veins. Mindy states that she has had left leg varicose veins for about 1 year. She denies any pain or other symptoms related to these. There is no aching, heaviness, throbbing, fatigue, itching, burning, or swelling. No history of thrombosis. At night she does have some sensations that feel like nerve damage. Sometimes it feels like ants are crawling on her legs. She will also notice some tightening up of her legs. Sometimes the symptoms keep her from falling asleep but do not wake her up. Magnesium has helped. The symptoms are bilateral, not just on the left side. There is no family history of venous thrombosis. Her brother has some vascular issue, but she is not sure of the details. She has not worn compression stockings. 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 Patient Active Problem List Diagnosis Multiple sclerosis ([facility]) Venous insufficiency of left lower extremity Past Surgical History: Procedure Laterality Date FOOT SURGERY Right 2019 Josefa's deformity of heel; achilles tendon debridement LARYNGOSCOPY 2020 Family History Problem Relation Age of Onset Heart Disease Mother COPD Father Asthma Sister Depression Sister Schizophrenia Sister Sarcoidosis Brother Social History Socioeconomic History Marital status: Single Tobacco Use Smoking status: Former Current packs/day: 1.00 Types: Cigarettes Smokeless tobacco: Never Substance and Sexual Activity Alcohol use: Yes Current Outpatient Medications Medication cholecalciferol, Vitamin D3, 25 mcg (1,000 unit) tablet lactobacillus rhamnosus, GG, (CULTURELLE) 10 billion cell capsule MAGNESIUM CITRATE ORAL multivitamin (TAB-A-QUENTIN) tablet omega-3 fatty acids 1,000 mg capsule capsule ZINC ORAL No current facility-administered medications for this visit. Allergies Allergen Reactions Other - See Comments Red wine, pt reports anaphylaxis (throat closing) with red wine Pcn [Penicillins] Review of Systems A comprehensive review of systems was negative except for: symptoms as above Objective: Vitals: 08/12/23 1409 08/12/23 1412 BP: (!) 148/98 (!) 148/102 BP Cuff Location: Left arm Right arm BP Patient Position: Sitting Sitting BP Cuff Sizes: Adult, regular Adult, regular Pulse: 75 SpO2: 97% Weight: 79.5 kg (175 lb 3.2 oz) Height: 163.8 cm (64.5) General: alert, cooperative, and no distress -she did not want to have to remove her socks and shoes, so exam did not include ankles or feet Neck: no bruits Lungs: clear to auscultation bilaterally Heart: regular rate and rhythm Abdomen: deferred Extremities: varicose veins noted -there are large greater than 3 mm bulging varicosities in the medial aspect of the left leg at the knee. No varicose veins on the right Pulses: 2+ and symmetric - PT Skin: Not assessed at ankle Imaging:Duplex of Left lower extremity was performed and revealed reflux in and dilation of the left greater saphenous vein. There was reflux from the saphenofemoral junction to the mid calf. The vein measured up to 8 mm in diameter and had greater than 5 seconds of reflux. There was no evidence ofdeep venous reflux or thrombosis. Assessment: Mindy Sr is a 62-year-old woman with a symptomatic left lower extremity venous disease, CEAP clinical class 2. She has not worn compression. I do not think her nighttime symptoms are from her venous disease, as they are bilateral. I did recommend that she wear compression, as this can help prevent progression of the varicositiesand development of edema or stasis changes. Should she develop symptoms, she would be a candidate for venous intervention, specifically radiofrequency ablation of the left greater saphenous vein and stab phlebectomy. Would not recommend this procedure in the absence of symptoms. Plan: 1. Treatment options of compression, surgical treatment of venous insufficiency discussed with patient. 2. Compression stocking. The technique for and importance of measurement and fitting was reviewed. Recommend that she begin wearing compression, and a prescription was provided. 3. Follow up: prn should symptoms develop . I spent a total of 35 minutes on the date of this encounter meeting with the patient and reviewing documentation/coordinating care as described in the above note. No procedures were performed at the time of the visit. documented in this encounter Plan of Treatment Upcoming Encounters Date Type Department Care Team (Late st Contact Info) Description 08/01/2024 11:40 [place] [address] Jorje Sosa MD [address] [place] [address], [address] [place] [address] documented as of this encounter Visit Diagnoses Diagnosis Venous insufficiency of left lower extremity- Primary documented in this encounter Historical Medications * This list may reflect changes made after this encounter. omega-3 fatty acids 1,000 mg capsule capsule Take 2 Capsules by mouth daily. lactobacillus rhamnosus, GG, (CULTURELLE) 10 billion cell capsule Take 1 Capsule by mouth as needed. MAGNESIUM CITRATE ORAL Take 2 Capsules by mouth daily. added in this encounter Care Teams Reliability Technician Relationship Specialty Start Date End Date Heide Nunn APRN [address] [place] [address] PCP - General [facility] 06/28/23 Heide Nunn APRN [facility] [place] [address] [facility] 06/29/23 documented as of this encounter
--- OUTSIDE RECORDS SUMMARY | 2024-05-26 00:17 | XMS_ITS | Encounter Summary ---
Author Organization [facility] Address [address] [place] [address] Care Team Providers Care Auto Driver Name Role Phone Dianna Guthrie MD Primary Care Provider [phone] Heide Nunn APRN Unavailable [phone] Heide Nunn APRN Primary Care Provider + [phone] Encounter Details Date Type Department Care Team (Late st Contact Info) Description 02/21/2021 Lab Requisition [facility] Pathology & Laboratory Medicine - [facility] [address], [place] [address] Outr Resulting Lab, Provider Social History Tobacco [...] Info) Description 08/01/2024 11:40 EST Office Visit [facility] [address], [place] [address] Jorje Sosa MD [address] [facility], [address] 4 [place] [address] documented as of this encounter Procedures Procedure Name Priority Date/Time Associated Diagnosis Comments IGG INDEX, CSF PERFORMABLE Today 02/20/2021 7:25 EDT IGG INDEX,CSF Routine 02/20/2021 7:25 EDT IGG Today 02/20/2021 7:25 EDT ALBUMIN Today 02/20/2021 7:25 EDT documented in this encounter Results * ALBUMIN (02/20/2021 7:25 EDT) Albumin 4.5 3.4 - 4.9 g/dL 02/21/2021 21:47 EDT [facility] Blood VENOUS BLOOD / Unknown 02/20/2021 7:25 EDT 02/21/2021 21:30 EDT us Provider Outr Resulting Lab CHEMISTRY & BLOOD GA S ORDERABLES Final Result [facility] [address] [place] [address] * IGG (02/20/2021 7:25 EDT) IgG 1,174 610-1,616 mg/dL 02/24/2021 9:46 EDT [facility] Blood VENOUS BLOOD / Unknown 02/20/2021 7:25 EDT 02/21/2021 21:30 EDT Provider Outr Resulting Lab CHEMISTRY & BLOOD GA S ORDERABLES Final Result Performing Organization Address City/[facility] Co de Phone Number [facility] [address] [place] [address] * (ABNORMAL) IGG INDEX, CSF PERFORMABLE (02/20/2021 7:25 EDT) IgG, CSF 7.47(H) <=5.00 mg/dL 02/24/2021 10:12 EDT [facility] Albumin, CSF 23.4 <=25.1 mg/dL 02/24/2021 10:12 EDT [facility] CSF IgG/Albumin 0.32(H) <=0.24 Ratio 02/24/2021 10:12 T [facility] CSF IgG Index 1.22(H) <=0.84 Index 02/24/2021 10:12 EDT [facility] CSF IgG Synthesis Rate 19.29(H) <=8.00 mg/24hrs 02/24/2021 10:12 [facility] IgG 1,174 610-1,616 mg/dL 02/24/2021 10:12 T [facility] Albumin 4.5 3.4 - 4.9 g/dL 02/24/2021 10:12 [facility] Fluid 02/20/2021 7:25 EDT 02/21/2021 21:30 EDT us Provider Outr Resulting Lab CHEMISTRY & BLOOD GA S ORDERABLES Final Result [facility] [address] [place] [address] documented in this encounter Visit Diagnoses Not on filedocumented in this encounter Care Teams Auto Driver Relationship Specialty Start Date End Date Dianna Guthrie MD [address] [place], [place] [id number] PCP - General 09/10/20 06/27/23 Heide Nunn APRN [address] [place], [place] [address] [place] [address] PCP - General [facility] 06/28/23 Heide Nunn APRN [address] [place], [place] [address] [place] [address] [facility] 06/29/23 documented as of this encounter
--- OUTSIDE RECORDS SUMMARY | 2024-05-26 00:17 | XMS_ITS | Encounter Summary ---
Author Organization [facility] Address [facility] [place] [address] Care Team Providers Care Program Scheduler Name Role Phone ArlineValerianoHeide EDY Primary Care Provider [phone] Encounter Details Date Type Department Care Team (Late st Contact Info) Description 04/07/2024 10:30 AM EDT [place] [address] Yovanny Garay MD [facility] [place] [address] Multiple sclerosis Social History Tobacco Use Types [...] Pulse 66 04/07/2024 10:13 AM EDT Temperature - - Respiratory Rate - - Oxygen Saturation 99% 04/07/2024 10:13 AM EDT Inhaled Oxygen Concentration - - Weight 80.3 kg (177 lb) 04/07/2024 10:13 AM EDT weighed Height 165.1 cm (5' 5) 04/07/2024 10:13 AM EDT Body Mass Index 29.45 04/07/2024 10:13 AM EDT documented in this encounter Progress Notes * Yovanny Garay MD - 04/07/2024 10:30 AM EDT [id number] 43 minutes + 10 minutes EMR documentation Routine f/u for this 63 yo woman w MS DISEASE SUMMARY: 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 Her SOB has been a chronic complaint.She is seeing a die lay out worker at [facility], a Dr.Brittany Weston, but is not seeming to improve at all. She continues to have dysesthesias for which I previously prescribed Gabapentin but she has not been taking it. Her pills were old so I recommended disposing them. We discussed this extensively and she will be trying 100 mg tablets increasing slowly to 8/d before her next visit in 3 months. MS Symptom Review: Mood: Medications: Lifestyle: Neuropathic symptoms: Motor: Spasms/spasticity: Ambulation: Falls: Bladder: Bowel: BP 132/79 (BP Location (NBP): Right arm, Patient Position: Sitting, BP Cuff Sizes: Adult (25-34 cm)) Pulse 66 Ht 165.1 cm (5' 5) Wt 80.3 kg (177 lb) Comment: weighed SpO2 99% BMI 29.45 kg/m?? 9 Hole-Peg Test Dominant Hand DH Trial 1 Time (seconds):: 3997 seconds DH Trial 2 Time (seconds):: 3185 seconds Non Dominant Hand Non DH Trial 1 Time (seconds):: 3006 Non DH Trial 2 Time (seconds):: 3072 25 Foot Walk Test Time 1: 500 Time 2: 583 Current Medications: No DMTs Assessment: Generally stable; no new symptoms attributable to her MS. Will try gabapentin to treat her dysesthesias and f/u on this issue in 3 months. Monitoring Plan: She will need a f/u brain MRI in 2024. Treatment Plan: As above. Follow-Up: 3 months by Telehealth- to review how gabapentin treatment has been working I have served and continue to serve as the focal point of longitudinal care for chronic management of this patient's multiple sclerosis over the past years. MD Raji Plascencia Professor of Neurology Department of Neurology [facility] and [address] [id number] Continuing to have bilateral hand and arm stiffness, numbness, and dysesthesias Gabapentin 100 mg up to 8 pills per day in 8 weeks F/u by TH in 3 months documented in this encounter Plan of Treatment Upcoming Encounters Date Type Department Care Team (Late st Contact Info) Description 07/21/2024 11:30 AM EST TH Visit (TeleHealth) [place] [address] Yovanny Garay MD [facility] [place] [address] documented as of this encounter Visit Diagnoses Diagnosis Multiple sclerosis documented in this encounter Care Teams Program Scheduler Relationship Specialty Start Date End Date Heide Nunn APRN [address] [place] [address] PCP - General Geriatric Medicine 11/20/20 documented as of this encounter
--- OUTSIDE RECORDS SUMMARY | 2024-05-26 00:17 | XMS_ITS | Encounter Summary ---
Author Organization [facility] [place] [address] Care Team Providers Care Dietitian Teacher Name Role Phone Heide Nunn APRN Primary Care Provider [phone] Reason for Referral * Diagnostic Test (Routine) - Closed Specialty Diagnoses / Procedures Referred By Savi t Referred To Contact Radiology Diagnoses Relapsing remitting multiple sclerosis Procedures MRI Brain wo Contrast Yovanny Garay MD [facility] [place] [place] [address] [place] [address] Referral ID Status Reason Start Date Expiration Date V isits Requested Visits Authorized [id number] Closed Specialty Service Requested 09/26/2021 03/28/2023 1 1 Reason for Visit * Diagnostic Test (Routine) - Closed Specialty Diagnoses / Procedures Referred By Contariadna t Referred To Contact Radiology Diagnoses Relapsing remitting multiple sclerosis Procedures MRI Brain wo Contrast Yovanny Garay MD [facility] [place] [place] [address] [place] [address] Referral ID Status Reason Start Date Expiration Date V isits Requested Visits Authorized [id number] Closed Specialty Service Requested 09/26/2021 03/28/2023 1 1 Encounter Details Date Type Department Care Team (Latest Contact Info) Description 02/10/2022 11:49 AM EDT - 02/10/2022 11:59 PM EDT Hospital [place] [address] Yovanny Garay MD [facility] [place] [place] [address] Relapsing remitting multiple sclerosis Discharge Disposition: Home Social History Tobacco Use Types Packs/Day Years Used Date Smoking Tobacco: Former Cigarettes 1 4 1 1983 Smokeless Tobacco: Never Sex and [...] by mouth daily. ketoconazole (NIZORAL) 2 % shampooIndications:Sebor rheic dermatitis of scalp Apply to scalp and leave on for 5-10 minutes and wash out 3 times weekly 120 mL 5 02/17/2013 fluocinonide (LIDEX) 0.05 % external solutionIndications:Sebo rrheic dermatitis of scalp Apply topically 2 times daily as needed. Avoid eyes 60 mL 3 02/17/2013 documented as of this encounter Plan of Treatment Upcoming Encounters Date Type Department Care Team (Late st Contact Info) Description 07/21/2024 11:30 AM EST TH Visit (TeleHealth) [place] [address] Yovanny Garay MD [facility] [place] [place] [address] documented as of this encounter Procedures Procedure Name Priority Date/Time Associated Diagnosis Comments MRI BRAIN WO CONTRAST Routine 02/10/2022 1:33 PM EDT Relapsing remitting multiple sclerosis documented in this encounter Results * MRI Brain wo [...] who have questions please contact the health medicare nurse that requested your imaging first. ? Narrative 02/10/2022 4:50 PM EDT EXAMINATION: MRI [...] patients who have questions please contactthe health medicare nurse that requested your imaging first. Yovanny Garay MD IMG MRI ORDERABLES documented in this encounter Visit Diagnoses Diagnosis Relapsing remitting multiple sclerosis Multiple sclerosis documented in this encounter Care Teams Dietitian Teacher Relationship Specialty Start Date End Date Heide Nunn APRN [address] [place] [address] PCP - General Geriatric Medicine 11/20/20 documented as of this encounter
--- OUTSIDE RECORDS SUMMARY | 2024-05-26 00:17 | XMS_ITS | Encounter Summary ---
Author Organization [facility] Address [address] [place] [address] Care Team Providers Care Aircraft Engine Assembler Name Role Phone Dianna Guthrie MD Primary Care Provider [phone] Heide Nunn APRN Unavailable [phone] Heide Nunn APRN Primary Care Provider [phone] Reason for Visit * Reason Onset Date Comments Appointment Related 04/27/2023 cancellation Encounter Details Date Type Department Care Team (Late st Contact Info) Description 04/27/2023 Telephone [facility] [address], [place] [id number] Jorje Sosa MD 111 [facility], [address] [place] [address] Appointment Related (cancellation) Social History Tobacco Use Types Packs/Day Years [...] encounter Miscellaneous Notes * Telephone Encounter - RitikaIrina matthew - 04/27/2023 1804 EST PAS Message: Mindy called to cancel appointment with Jorje Sosa MD on 04/28/23 at 4pm due to snow forecast. Patient would like a call back to reschedule? Yes documented in this encounter Plan of Treatment Upcoming Encounters Date Type Department Care Team (Late st Contact Info) Description 08/01/2024 11:40 EST Office Visit [address] [address] Jorje Sosa MD [address] [place] [address], [address] [place] [address] documented as of this encounter Visit Diagnoses Not on filedocumented in this encounter Care Teams Aircraft Engine Assembler Relationship Specialty Start Date End Date Dianna Guthrie MD [facility] [place] [address] PCP - General 09/10/20 06/27/23 Heide Nunn [place] [address] PCP - General Family Medicine - [facility] 06/28/23 Heide Nunn [place] [address] Family Medicine - [facility] 06/29/23 documented as of this encounter
--- OUTSIDE RECORDS SUMMARY | 2024-05-26 00:17 | XMS_ITS | Encounter Summary ---
Author Organization [facility] Address [address] [place] [address] Care Team Providers Care Production Roustabout Name Role Phone Dianna Guthrie MD Primary Care Provider [phone] Heide Nunn APRN Unavailable [phone] Heide Nunn APRN Primary Care Provider [phone] Encounter Details Date Type Department Care Team (Late st Contact Info) Description 07/24/2022 Lab Requisition [facility] Pathology & Laboratory Medicine - [facility] [address] [place], [place] [address] Outr Resulting Lab, Provider Social History Tobacco [...] 08/01/2024 11:40 EST Office Visit [facility] [address] [place], [place] [address] Jorje Sosa MD 111 [facility], [address] [place] [address] documented as of this encounter Procedures Procedure Name Priority Date/Time Associated Diagnosis Comments ZZCOVID-19 TEST [facility] PCR Today 07/23/2022 15:55 EST COVID-19 TESTING Routine 07/23/2022 15:5 5 EST documented in this encounter Results * COVID-19 TEST [facility] PCR (07/23/2022 15:55 EST) Swab 07/23/2022 15:5 5 EST 07/24/2022 20:33 EST us Provider Outr Resulting Lab MICROBIOLOGY - GENER AL ORDERABLES Final Result [facility] [address] [place] [address] * COVID-19 TESTING (07/23/2022 15:55 EST) COVID-19 rt-PCR Result Negative Negative 07/25/2022 11:11 EST [facility] Comment: This test has not been FDA cleared or approved. This test has been authorized by FDA under an EUA for use by authorized laboratories. This test has been authorized only for detection of nucleic acid from 2019-nCoV, not for any other viruses or pathogens. This test is only authorized for the duration of the declaration that circumstances exist justifying the authorization of emergency use of in vitro diagnostic tests for detection and/or diagnosis of 2019-nCoV under section 564(b)(1) of Act, 21 U.S.C ?? 360bbb-3(b) (1), unless the authorization is terminated or revoked sooner. Negative results do not preclude 2019-nCoV infection and should not be used as the sole basis for treatment or other patient management decisions. Negative results must be combined with clinical observations, patient history, and epidemiological information. Testing was performed using the kathy SARS-CoV-2 assay ([employer] on the Kathy 6800 System Performing Lab Kathy [address] [facility] 07/25/2022 11:11 EST [facility] Swab 07/23/2022 15:5 5 EST 07/24/2022 20:33 EST us Provider Outr Resulting Lab MICROBIOLOGY - GENER AL ORDERABLES Final Result [facility] [address] [place] [address] documented in this encounter Visit Diagnoses Not on filedocumented in this encounter Care Teams Production Roustabout Relationship Specialty Start Date End Date Dianna Guthrie MD [address] [place] [address] PCP - General 09/10/20 06/27/23 Heide Nunn APRN [address] [place] [address] PCP - General [facility] 06/28/23 Heide Nunn APRN [address] [place] [address] [facility] 06/29/23 documented as of this encounter
--- OUTSIDE RECORDS SUMMARY | 2024-05-26 00:17 | XMS_ITS | Encounter Summary ---
Author Organization [facility] Address [address] [place] [address] Care Team Providers Care Floorwalker Name Role Phone Dianna Guthrie MD Primary Care Provider [phone] Heide Nunn APRN Unavailable [phone] Heide Nunn APRN Primary Care Provider + [phone] Encounter Details Date Type Department Care Team (Late st Contact Info) Description 02/20/2021 Lab Requisition [facility] [address], [place] [address] Outr Resulting Lab, Provider Social History Tobacco [...] Info) Description 08/01/2024 11:40 EST Office Visit [facility] [address] [place], [place] [address] Jorje Sosa MD 111 [facility], [address] [place] [address] documented as of this encounter Procedures Procedure Name Priority Date/Time Associated Diagnosis Comments IMMUNOGLOBULINS Routine 02/20/2021 7:25 EDT VARICELLA IGG ANTIBODY Routine 7:25 EDT documented in this encounter Results * VARICELLA IGG ANTIBODY (02/20/2021 7:25 EDT) Varicella IgG Ab Positive See Note 02/21/2021 10:36 EDT [facility] Comment:Presence of detectab le Varicella Zoster virus IgG antibodies. Blood VENOUS BLOOD / Unknown 02/20/2021 7:25 EDT 02/20/2021 16:06 EDT us Provider Outr Resulting Lab IMMUNOLOGY AND SEROL OGY ORDERABLES Final Result [facility] [address] [place] [address] * IMMUNOGLOBULINS (02/20/2021 7:25 EDT) IgG 1,167 610-1,616 mg/dL 02/21/2021 8:37 EDT [facility] IgA 241 85 - 499 mg/dL 02/21/2021 8:37 EDT [facility] IgM 152 35 - 242 mg/dL 02/21/2021 8:37 EDT [facility] Blood VENOUS BLOOD / Unknown 02/20/2021 7:25 EDT 02/20/2021 16:06 EDT us Provider Outr Resulting Lab CHEMISTRY & BLOOD GA S ORDERABLES Final Result [facility] [address] [place] [address] documented in this encounter Visit Diagnoses Not on filedocumented in this encounter Care Teams Floorwalker Relationship Specialty Start Date End Date Dianna Guthrie MD [address] [place] [address] PCP - General 09/10/20 06/27/23 Heide Nunn APRN [address] [place] [address] PCP - General [facility] 06/28/23 Heide Nunn APRN [address] [place] [address] [facility] 06/29/23 documented as of this encounter
--- OUTSIDE RECORDS SUMMARY | 2024-05-26 00:17 | XMS_ITS | Encounter Summary ---
Author Organization [facility] Address [facility] [place] [address] Care Team Providers Care Grove Superintendent Name Role Phone Arline Heide SNOW Primary Care Provider [phone] Encounter Details Date Type Department Care Team (Late st Contact Info) Description 03/27/2022 11:30 AM EDT [place] [address] Yovanny Garay MD [facility] [place] [address] Relapsing remitting multiple sclerosis Social History Tobacco Use Types Packs/Day Years Used Date Smoking Tobacco: Former Cigarettes 1 1983 Smokeless Tobacco: Never Alcohol Use Standard Drinks/Week Comments Never 0 (1 standard drink = 0.6 oz pur e alcohol) Sex and Gender Information Value Date Recorded Sex Assigned at Not on file Gender Identity Not on file Sexual Orientation Not on file documented as of this encounter Last Filed Vital Signs Vital Sign Reading Time Taken Comments Blood Pressure 127/77 03/27/2022 11:30 AM EDT Pulse 65 03/27/2022 11:30 AM EDT Temperature - - Respiratory Rate - - Oxygen Saturation - - Inhaled Oxygen Concentration - - Weight 83.5 kg (184 lb) 03/27/2022 11:30 AM EDT Height 167.6 cm (5' 6) 03/27/2022 11:30 AM EDT reported Body Mass Index 29.7 03/27/2022 11:30 AM EDT documented in this encounter Progress Notes * Yovanny Garay MD - 03/27/2022 11:30 AM EDT [id number] 42 minutes She had many concerns today that we discussed at length. She continues to have symptoms of shortness of breath, and along with her hoarseness I wonder whether this may represent laryngospasm. She hashad an otolaryngological evaluation which is not in my records, but she will send to me prior to her next visit. She also complains of continued right hand problems it feels like there is rubber band around my wrist. We discussed the possibility of trying gabapentin for this symptom and she wants to hold off for the time being. We also discussed the possibility of using a DMT at this point and we decided to hold off for now. We also discussed the DISCO-MS trial. She wanted more information about EBV and I recommended she watch 's presentation at [facility].5. DISEASE SUMMARY: Principal neurologic diagnosis: ??RRMS (2017 Chun criteria), CIS using earlier criteria Onset: , right arm pain and numbness CSF: pos Disease course at onset: CIS Current disease course: stable Relapses: CIS EDSS ): too early MS Severity Score (EDSS and Disease Duration): too early ?? Treatment History Previous disease therapies: Current disease therapies: ?? Imaging History Most recent MRI brain:??-- no change Most recent MRI cervical spine:?? Most recent MRI thoracic spine: ?? Interval History:? Generally doing well, except for above issues. ?? MS Symptom Review: Mood:?? Medications: Lifestyle: Neuropathic symptoms:?? Motor:?? Spasms/spasticity:?? Ambulation:?? Falls:?? Bladder:?? Bowel:? Current Medications: reviewed and updated in EMR BP 127/77 Pulse 65 Ht 167.6 cm (5' 6) Comment: reported Wt 83.5 kg (184 lb) BMI 29.70 kg/m?? 9 Hole-Peg Test Dominant Hand DH Trial 1 Time (seconds):: 25.15 seconds DH Trial 2 Time (seconds):: 25.63 seconds Non Dominant Hand Non DH Trial 1 Time (seconds):: 22.98 Non DH Trial 2 Time (seconds):: 24.71 25 Foot Walk Test Time 1: 4.23 Time 2: 4.43 Patient reported outcomes: myD-H Multiple Sclerosis 04/11/2021 03/24/2022 Audit Sub Scores - 1 (Low Risk) Pain Typical - 0 (None-0, Worst-10) Pain Now - Incomplete Pain at Rest - 0 (None-0, Worst-10) Pain with Activity - 1 (None-0, Worst-10) [id number] ?? Assessment:? Doing well. She is concerned about her shortness of breath, but is otherwise doing well. ?? Monitoring Plan: ?? Will get a MRI brain for comparison- MRi activity would prompt me to strongly recommend immunomodulatory therapy. ?? Treatment Plan:? As above ?? Follow-Up:?? 6 months by telehealth. MD Raji Plascencia Professor of Neurology Department of Neurology [facility] [place] [address] At least 30 minutes of this 42 minute face to face visit were spent in discussion of the topics outlined in the note above including diagnosis, therapy, and management issues. documented in this encounter Plan of Treatment Upcoming Encounters Date Type Department Care Team (Late st Contact Info) Description 07/21/2024 11:30 AM EST TH Visit (TeleHealth) [place] [address] Yovanny Garay MD [facility] [place] [address] documented as of this encounter Visit Diagnoses Diagnosis Relapsing remitting multiple sclerosis Multiple sclerosis documented in this encounter Care Teams Grove Superintendent Relationship Specialty Start Date End Date Heide Nunn APRN [address] [place] [address] PCP - General Geriatric Medicine 11/20/20 documented as of this encounter
--- OUTSIDE RECORDS SUMMARY | 2024-05-26 00:18 | XMS_ITS | Encounter Summary ---
Author Organization [facility] [place] [address] Care Team Providers Care Friction Paint Machine Tender Name Role Phone Unknown Primary Care Provider Unavailabl e Encounter Details Date Type Department Care Team (Late st Contact Info) Description 08/30/2020 Orders [place] [address] Caroline Pepper MD [facility] [place] [address] SOB (shortness of breath) (Primary Dx) Social History Tobacco Use Types Packs/Day Years Used Date Smoking Tobacco: Never Sex and Gender Information Value Date Recorded Sex Assigned at Not on file Gender Identity Not on file Sexual Orientation Not on file documented as of this encounter Plan of Treatment Upcoming Encounters Date Type Department Care Team (Late st Contact Info) Description 07/21/2024 11:30 AM EST TH Visit (TeleHealth) [place] [phone] Yovanny Garay MD [facility] [place] [address] documented as of this encounter Results * Pulmonary Function Testing (11/20/2020 3:09 PM EDT) FVC Actual Pre-BD 3.15 L COMPAS PFT FVC Pre-BD % of Predicted 96 % COMPAS PFT FVC Predicted 3.28 L COMPAS PFT FVC Pre-BD Z-Score -0.27 COMPAS PFT FVC Lower Limits of Normal 2.49 L COMPAS PFT FEV1 Actual Pre-BD 2.50 L COMPAS PFT FEV1 Pre-BD % of Predicted 97 % COMPAS PFT FEV1 Predicted 2.58 L COMPAS PFT FEV1 Pre-BD Z-Score -0.22 COMPAS PFT FEV1 Lower Limits of Normal 1.96 L COMPAS PFT FEV1 / FVC Actual Pre-BD 79 % COMPAS PFT FEV1 / FVC LLN 67 % COMPAS PFT [id number] Actual Pre-BD 2.22 L/s COMPAS PFT [id number] Pre-BD % of Predicted 94 % COMPAS PFT [id number] Predicted 2.35 L/s COMPAS PFT [id number] Pre-BD Z-Score -0.16 COMPAS PFT DLCO Hb Actual Pre-BD 22.93 mL/min/mmHg COMPAS PFT DLCO Hb Pre-BD % of Predicted 110 % COMPAS PFT DLCO Hb Pre-BD Z-Score 0.57 COMPAS PFT DLCO Hb Predicted 20.79 mL/min/mmHg COMPAS PFT DLCO UNC ACT PRE-BD 22.93 mL/min/mmHg COMPAS PFT DLCO UNC PRE-BD % of PRED 110 % COMPAS PFT DLCO UNC PRE-BD Z-SCORE 0.57 % COMPAS PFT DLCO UNC Predicted 20.79 mL/min/mmHg COMPAS PFT DLCO/VA Actual Pre-BD 4.89 mL/min/mmHg /L COMPAS PFT DLCO/VA Pre-BD % of Predicted 115 % COMPAS PFT DLCO/VA Pre-BD Z-Score 0.97 COMPAS PFT DLCO/VA Predicted 4.25 mL/min/mmHg /L COMPAS PFT Narrative COMPAS PFT - 11/20/2020 3:09 PM EDT FINDINGS: FEV1, FVC, and FEV1/VC are within normal limits. Diffusion capacity is normal. SpO2 decreased from 97% to 95% with ambulation of 375 feet on room air. IMPRESSION: Normal spirometry. No diffusion impairment. There is mild desaturation with ambulation. Procedure Note Angela Chapman MD - 11/23/2020 FINDINGS: FEV1, FVC, and FEV1/VC are within normal limits. Diffusioncapacity is normal. SpO2 decreased from 97% to 95% with ambulation of 375 feet on room air.IMPRESSION: Normal spirometry. No diffusion impairment. There is mild desaturation withambulation. Caroline Pepper MD PFT ORDERABLES COMPAS PFT documented in this encounter Visit Diagnoses Diagnosis SOB (shortness of breath)- Primary Shortness of breath SOB (shortness of breath) Shortness of breath documented in this encounter Care Teams Friction Paint Machine Tender Relationship Specialty Start Date End Date Unknown None PCP - General 08/03/16 11/19/20 documented as of this encounter
--- OUTSIDE RECORDS SUMMARY | 2024-05-26 00:18 | XMS_ITS | Encounter Summary ---
Author Organization [facility] Address [facility] [place] [address] Care Team Providers Care Geothermal Sheet Metal Worker Name Role Phone Heide Nunn APRN Primary Care Provider [phone] Encounter Details Date Type Department Care Team (Late st Contact Info) Description 03/12/2021 Telephone [place] [phone] Beverley Garcia Social History Tobacco Use Types Packs/Day Years [...] AM EST TH Visit (TeleHealth) [place] [address] Yovanny Garay MD [facility] [place] [address] documented as of this encounter Visit Diagnoses Not on filedocumented in this encounter Care Teams Geothermal Sheet Metal Worker Relationship Specialty Start Date End Date Heide Nunn APRN [address] [place] [id number] PCP - General Geriatric Medicine 11/20/20 documented as of this encounter
--- OUTSIDE RECORDS SUMMARY | 2024-05-26 00:18 | XMS_ITS | Encounter Summary ---
Author Organization [facility] [place] [address] Care Team Providers Care Family Service Caseworker Name Role Phone Heide Nunn APRN Primary Care Provider [phone] Reason for Referral * Diagnostic Test (Routine) - Closed Specialty Diagnoses / Procedures Referred By Savi matthew Referred To Contact Radiology Diagnoses Dyspnea, unspecified type Procedures CT Chest wo Contrast (Generic) Caroline Pepper MD [facility] [place] [address] [facility] [place] [address] Referral ID Status Reason Start Date Expiration Date V isits Requested Visits Authorized [id number] Closed Specialty Service Requested 11/20/2020 05/22/2022 1 1 Reason for Visit * Reason Comments Referral * Consultation (Routine) - Closed Specialty Diagnoses / Procedures Referred By Savi matthew Referred To Contact Pulmonology Diagnoses SOB (shortness of breath) Adama Ding MD [address] [place] [id number] [facility] [address] [place] [address] Referral ID Status Reason Start Date Expiration Date V isits Requested Visits Authorized [id number] Closed Consult, Test & Treat PCP Updated and/or Approved 08/21/2020 08/21/2021 10 10 Encounter Details Date Type Department Care Team (Late st Contact Info) Description 11/20/2020 4:00 PM EDT Office [place] [address] Caroline Pepper MD [facility] [place] [address] Dyspnea, unspecified type Social History Tobacco Use Types Packs/Day Years Used Date Smoking Tobacco: Former Cigarettes 1 4 1 1983 Smokeless Tobacco: Never Sex and Gender Information Value Date Recorded Sex Assigned at Not on file Gender Identity Not on file Sexual Orientation Not on file documented as of this encounter Last Filed Vital Signs Vital Sign Reading Time Taken Comments Blood Pressure 150/86 11/20/2020 3:46 PM EDT Pulse 65 11/20/2020 3:46 PM EDT Temperature 37.2 ??C (99 ??F) 11/20/2020 3:46 PM EDT Respiratory Rate 24 11/20/2020 3:46 PM EDT Oxygen Saturation 99% 11/20/2020 3:46 PM EDT Inhaled Oxygen Concentration - - Weight 91.4 kg (201 lb 8 oz) 11/20/2020 3:46 PM EDT Height 164.3 cm (5' 4.69) 11/20/2020 3:46 PM ED T Body Mass Index 33.86 11/20/2020 3:46 PM EDT documented in this encounter Progress Notes * Caroline Pepper MD - 11/20/2020 4:00 PM EDT Images from the original note were not included. [facility] Section of Pulmonary and Critical Care Medicine Outpatient Consultation Date of Encounter: 11/20/2020 Reason for Evaluation: I was asked by Heide Nunn APRN to evaluate Kristina Sr for dyspnea. I independently interviewed and examined the patient in the office and have reviewed available records. History of Present Illness: Mindy Sr is a pleasant 60 year old woman with a longstanding history of dyspnea. She reports that she was in very good shape in her 20's and was an avid hiker. [place] and the cabin was closed for the winter and very moldy. During that time she started to develop dyspnea and chest tightness. Since then she has never felt that her breathing was normal and it has progressively worsened over the last 3 decades. She is typically worse in the spring and fall due to allergies but also experiences worsening of symptoms sometimes in the winter and summer. She is dyspneic with exertion but can also have symptoms at rest. In addition to dy spnea, more recently she has developed what sounds like vocal cord dysfunction and is in the midst of an ENT evaluation. She denies cough or sputum production. She denies fevers or chills. She has environmental allergies that can trigger symptoms. She pushes herself to exercise to stay in shape butshe is often quite short of breath during exercise and this is associated with left sided upper back pain. She denies chest pain but has never had a cardiac evaluation. Her symptoms change based on barometric pressure and humidity. She has had normal spirometry but does not recall ever having a CT scan. She has been on albuterol and possibly Flovent with no benefit. She denies any joint pain or swelling or redness but does noteoccasional pedal edema. In addition, she has recently experienced numbness in her right hand and wrist and was told she might have thoracic outlet obstruction after neuro eval that included EMGs and NCVs. Past Medical and Surgical History: 1. History of pneumonia in 1968 2. Hypertension Family History: Her father had chronic dyspnea and emphysema. She has a brother with sarcoidosis Social and Occupational History: Social History Socioeconomic History ??? Marital status: Spouse name: None ??? Number of children: None ??? Years of education: None ??? Highest education level: None Occupational History ??? None Tobacco Use ??? Smoking status: Former Smoker Packs/day: 1.00 Years: 4.00 Pack years: 4.00 Types: Cigarettes Quit date: 1983 Years since quittin.4 ??? Smokeless tobacco: Never Used Vaping Use ??? Vaping Use: Never used Substance and Sexual Activity ??? Alcohol use: None ??? Drug use: None ??? Sexual activity: None Other Topics Concern ??? None Social History Narrative ??? None Social Determinants of Health Financial Resource Strain: ??? Difficulty of Paying Living Expenses: Food Insecurity: ??? Worried About Running Out of Food in the Last Year: ??? Ran Out of Food in the Last Year: Transportation Needs: ??? Lack of Transportation (Medical): ??? Lack of Transportation (Non-Medical): Physical Activity: ??? Days of Exercise per Week: ??? Minutes of Exercise per Session: Current Medications: Current Outpatient Medications on File Prior to Visit Medication Sig Dispense Refill ??? multivitamin (THERAGRAN) Tablet Take 1 tablet by mouth daily. ??? cholecalciferol, Vitamin D3, (Vitamin D3) 1,000 unit Tablet Take by mouth daily. ??? ubiquinone (coenzyme Q10) 100 mg Capsule Take 200 mg by mouth daily. ??? citalopram (CELEXA) 20 mg tablet Take 20 mg by mouth daily. ??? ketoconazole (NIZORAL) 2 % shampoo Apply to scalp and leave on for 5-10 minutes and wash out 3 times weekly (Patient not taking: Reported on 11/20/2020) 120 mL 5 ??? fluocinonide (LIDEX) 0.05 % external solution Apply topically 2 times daily as needed. Avoid eyes (Patient not taking: Reported on 11/20/2020) 60 mL 3 No current facility-administered medications on file prior to visit. Adverse Drug Reactions: Allergies Allergen Reactions ??? Red Wine Extract Shortness Of Breath ??? Penicillins Review of Systems: Review of Systems Constitutional: Negative for fever, night sweats and weight loss. HENT: Positive for hoarse voice. Negative for congestion. Eyes: Negative for blurred vision. Cardiovascular: Positive for dyspnea on exertion. Negative for chest pain, orthopnea and paroxysmalnocturnal dyspnea. Respiratory: Positive for shortness of breath. Negative for cough and sputum production. Endocrine: Negative for cold intolerance and heat intolerance. Skin: Negative for rash. Musculoskeletal: Negative for joint pain and joint swelling. Gastrointestinal: Negative for abdominal pain. Neurological: Positive for light-headedness. Negative for headaches. Psychiatric/Behavioral: Negative for depression. The patient is not nervous/anxious. Allergic/Immunologic: Positive for environmental allergies. Physical Examination: General: Dyspneic with conversation, hoarse voice HEENT: face symmetric NECK: No adenopathy CHEST: Clear to auscultation bilaterally with no wheezes or crackles CV: Regular, no murmur EXT: No clubbing or edema Diagnostic Testing: IMAGING: None SPIROMETRY: I personally reviewed her PFTs from today which showed normal spirometry and DLCO Impression / Plan of Care: Mindy Sr is a pleasant 60 year old woman who presents for evaluationof a longstanding history of dyspnea. She has normal spirometry and a normal exam. However, her history and symptoms are concerning for an inflammatory lung disease. She has a family history of sarcoid and this can present with pseudonormalization of spirometry. The differential is quite broad at this point and we need more information to narrow things down. I would like to obtain some basic labsto look for eosinophils, connective tissue disease, and ABPA as well as a CT scan for better visualization. I will see her back after her CT scan. CAROLINE PEPPER MD 11/20/2020 4:46 PM documented in this encounter Plan of Treatment Upcoming Encounters Date Type Department Care Team (Late st Contact Info) Description 07/21/2024 11:30 AM EST TH Visit (TeleHealth) [place] [address] Yovanny Garay MD [facility] [place] [address] documented as of this encounter Procedures Procedure Name Priority Date/Time Associated Diagnosis Comments HC IGE, TOTAL Routine 11/20/2020 5:01 PM EDT Dyspnea, unspecified type HEMOGRAM Routine 11/20/2020 5:01 PM EDT Dyspnea, unspecified type DIFFERENTIAL, AUTOMATED Routine 11/20/2020 5:01 PM EDT Dyspnea, unspecified type HC PCH HYPERSENS PNEUMONITIS; GEL DIFFUSION Routine 11/20/2020 5:01 PM EDT Dyspnea, unspecified type HC CBC,PLT & AUTO DIFF Routine 11/20/2020 5:01 PM EDT Dyspnea, unspecified type HC VENIPUNCTURE Routine 11/20/2020 5:01 PM EDT Dyspnea, unspecified type HC [facility] ANGIOTENSIN CONVERTING ENZYME Routine 11/20/2020 5:01 PM EDT Dyspnea, unspecified type HC P[facility] ANATITRE (ANDPATTERN) Routine 11/20/2020 5:01 PM EDT Dyspnea, unspecified type documented in this encounter Results * CT Chest wo Contrast (Generic) (05/07/2021 2:30 PM EST) Anatomical Region Laterality Modality Chest Computed Tomogra phy Impressions 05/07/2021 5:51 PM EST 1. ??No pulmonary parenchymal findings to explain patient's shortness of breath. 2. ??Small to moderate hiatal hernia. 3. ??Sub-5 mm left lower lobe pulmonary nodules. In a patient at low risk for lung cancer no follow-up CT is recommended per 2017 Fleischner Society guidelines (otherwise CT is optional) I have personally reviewed the image(s) and the resident's interpretation and agree with the findings, Holly Dominique MD at 05/07/2021 5:51 PM Thank you for letting us participate in the care of this patient. ??If you are a health care provider and have any questions regarding this report, please contact the number below. ??For patients who have questions please contact the health reproductive healthcare assistant that requested your imaging first. ? Narrative 05/07/2021 5:51 PM EST EXAMINATION: CT CHEST WO CONTRAST (GENERIC) CLINICAL HISTORY: Shortness of breath TECHNIQUE: 3.0 mm thick axial contiguous sections were obtained through the chest via helical acquisition without intravenous contrast administration. Thin-section reconstructions as well as coronal and sagittal reformatted images were generated. COMPARISON: None FINDINGS: Pulmonary parenchyma: Sub-5 mm central left lower lobe nodule (series 5, image 314). Sub-5 mm subsolid peripheral left lower lobe nodule (series 5, image 332). Atelectasis or scarring in the azygoesophageal recess Airways: No significant findings. Pleura: No significant findings. Lymph nodes: No significant findings. Heart, pericardium, and great vessels: Minimal coronary artery atherosclerotic calcification. Other mediastinal structures: Small to moderate hiatal hernia. Lower neck: No significant findings. Upper abdomen: Subcentimeter low-attenuation hepatic lesions in the left and right hepatic lobe are too small to accurately characterize. Body wall soft tissues: No significant findings. Skeletal structures: No significant findings. Procedure Note Holly Huitron MD - 05/07/2021 EXAMINATION: CT CHEST WO CONTRAST (GENERIC) CLINICAL HISTORY: Shortness of breath TECHNIQUE: 3.0 mm thick axial contiguous sections were obtained throughthe chest via helical acquisition without intravenous contrastadministration. Thin-section reconstructions as well as coronal and sagittal reformattedimages were generated. COMPARISON: None FINDINGS: Pulmonary parenchyma: Sub-5 mm central left lower lobe nodule (series 5,image 314). Sub-5 mm subsolid peripheral left lower lobe nodule (series 5, ). Atelectasis or scarring in the azygoesophageal recess Airways: No significant findings. Pleura: No significant findings. Lymph nodes: No significant findings. Heart, pericardium, and great vessels: Minimal coronary arteryatherosclerotic calcification. Other mediastinal structures: Small to moderate hiatal hernia. Lower neck: No significant findings. Upper abdomen: Subcentimeter low-attenuation hepatic lesions in the leftand right hepatic lobe are too small to accurately characterize. Body wall soft tissues: No significant findings. Skeletal structures: No significant findings. IMPRESSION 1. No pulmonary parenchymal findings to explain patient's shortness ofbreath. 2. Small to moderate hiatal hernia. 3. Sub-5 mm left lower lobe pulmonary nodules. In a patient at low riskfor lung cancer no follow-up CT is recommended per 2017 Fleischner Society guidelines (otherwise CT is optional) I have personally reviewed the image(s) and the resident's interpretationand agree with the findings, Holly Dominique MD at 05/07/2021 5:51PM Thank you for letting us participate in the care of this patient. If youare a health care provider and have any questions regarding this report,please contact the number below. For patients who have questions please contactthe health reproductive healthcare assistant that requested your imaging first. Electronically signed by: Holly Dominique MD, [facility] ([phone]), at 05/07/2021 5:51 PM Caroline Pepper MD IMG CT ORDERABLES * Differential, Automated (11/20/2020 5:01 PM EDT) Neutrophil % 58.6 % [facility] Neutrophil Absolute 3.14 1.70 - 6.10 x10(3)/[facility] Lymph % 31.5 % [facility] Lymphocytes Abs 1.7 0.9 - 3.2 x10(3)/[facility] Monocyte % 7.6 % [facility] Monocyte Abs 0.4 0.3 - 0.9 x10(3)/[facility] Eos % 1.5 % [facility] Eosinophils Abs 0.1 0.0 - 0.4 x10(3)/[facility] Basophil % 0.6 % [facility] Baso Absolute 0.0 0.0 - 0.1 x10(3)/[facility] Immature Gran % 0.20 % [facility] Comment: Immature granulocytes(IG's)percentage and absolute count will include metamyelocytes, myelocytes, and promyelocytes. Blood smears from CBCs yielding IG's will be scanned manually for concordance. If this scan disagrees with the automated IG or if promyelocytes are noted, a manual differential will be performed. Immature Gran Absolute 0.01 0.00 - 0.04 x10(3)/[facility] Blood 11/20/2020 5:01 PM EDT 11/20/2020 5:15 PM EDT Narrative Resulting Agency Comment Spec In Lab Caroline Pepper MD HEMATOLOGY ORDERABLE S [facility] [place] [address] * Hemogram (11/20/2020 5:01 PM EDT) White Blood Cell 5.4 4.0 - 9.5 x10(3)/[facility] Red Blood Cell 4.57 4.00 - 5.21 x10(6)/[facility] Hemoglobin 13.3 11.7 - 15.5 gm/dL [facility] Hematocrit 40.7 35.7 - 45.8 % [facility] Mean Cell Volume 89.1 82.6 - 94.4 fL [facility] Mean Cell Hemoglobin 29.1 27.1 - 32.0 pg [facility] Mean Cell Hemoglobin Concentration 32.7 31.7 - 35.0 gm/dL [facility] Platelet 282 145 - 357 x10(3)/[facility] RDW Standard Deviation 43.7 37.0 - 46.0 [facility] RDW coefficient of variation 13.2 11.5 - 14.1 % [facility] Mean Platelet Volume 9.7 7.6 - 12.9 fL [facility] NRBC% auto 0.0 % [facility] NRBC Absolute 0.000 0.000 - 0.000 x10(3)/[facility] Blood 11/20/2020 5:01 PM EDT 11/20/2020 5:15 PM EDT Narrative Resulting Agency Comment Spec In Lab Caroline Pepper MD HEMATOLOGY ORDERABLE S [facility] [place] [address] * (ABNORMAL) Rheumatoid factor, quant (11/20/2020 5:01 PM EDT) Rheumatoid Factor 23(H) <=14 IU/mL [facility] Blood 11/20/2020 5:01 PM EDT 11/20/2020 5:15 PM EDT Narrative Resulting Agency Comment Spec In Lab Caroline Pepper MD CHEMISTRY ORDERABLES Performing Organization Address [facility] Co de Phone Number [facility] [place] [address] * NADINE ([facility]/CGP/APD/NLH) (11/20/2020 5:01 PM EDT) NADINE Ab Screen Test ?Result ? Flag ??Unit ??RefValue Antinuclear Ab, HEp-2 ? <1:80 (Negative) ? <1:80 (Negative) ??Substrate, S ? ADDITIONAL INFORMATION --------- ?Method: Immunofluorescence using HEp-2 cellular substrate. ?Test Performed by: ?[facility] ?[address] [place] [address] ?[employer] El[employer] Operator: Bib Mon M.D. Ph.D.; CLIA# [id number] [facility] Blood 11/20/2020 5:01 PM EDT 11/21/2020 9:32 AM EDT Narrative Resulting Agency Comment Spec In Lab Caroline Pepper MD LAB SEND OUT ORDERAB LES Performing Organization Address [facility] de Phone Number [facility] [place] [address] * Angiotensin Converting Enzyme (11/20/2020 5:01 PM EDT) Pathologist [facility] [place] ( 16 - 85 unit/L [facility] Comment: Test Performed by: [facility] - [address] [address] [employer] Operator: Bib Mon M.D. Ph.D.; CLIA# [id number] Blood 11/20/2020 5:01 PM EDT 11/21/2020 9:32 AM EDT Narrative Resulting Agency Comment Spec In Lab Caroline Pepper MD LAB SEND OUT ORDERAB LES Performing Organization Address [facility] de Phone Number [facility] [place] [address] * Hypersensitivity Pneumonitis Screen (11/20/2020 5:01 PM EDT) Pathologist [facility] Hypersens Pneum Scrn See comment [facility] Comment: TESTS RESULTS--------UNITS--REF. RANGE--- Aspergillus fumigatus ?NEGATIVE ? NEGATIVE Micropolyspora faeni ? NEGATIVE ? NEGATIVE [place] Serum ? NEGATIVE ? NEGATIVE T. candidus ?NEGATIVE ? NEGATIVE T. vulgaris ?NEGATIVE ? NEGATIVE S. viridis ? NEGATIVE ? NEGATIVE This test was developed and its analytical performance characteristics have been determined by [facility]. It has not been cleared or approved by FDA. This assay has been validated pursuant to the CLIA regulations and is used for clinical purposes. RESULTS RECEIVED ? 11/29/20 Reference lab accession: [id number] Test performed by [employer] ?[id number] [facility], ?[place] [address] ? Desktop Support Technician: Nitza Fraga MD,PHD,MARY Test Reported by Fernando Rendon, [facility], [address] [place], [place] Osbaldo Cortez M.D., Ph.D., Director of Laboratories , [place] [id number] Blood 11/20/2020 5:01 PM EDT 11/21/2020 10:40 AM EDT Narrative Resulting Agency Comment Spec In Lab Caroline Pepper MD LAB SEND OUT ORDERAB LES Performing Organization Address City/[facility]/ZIP Co de Phone Number [facility] [place] [address] * (ABNORMAL) Immunoglobulin E (IgE) (11/20/2020 5:01 PM EDT) IgE, Total 165(H) <=101 kU/L [facility] Comment: Pediatric age-specific reference ranges are reflected in result ranges. Adult reference ranges: <25 kU/L ??Normal 25-100 kU/L Equivocal >100 kU/L ??Elevated Blood 11/20/2020 5:01 PM EDT 11/21/2020 7:12 AM EDT Narrative Resulting Agency Comment Spec In Lab Caroline Pepper MD IMMUNOLOGY ORDERABLE S Performing Organization Address [facility]/ZIP Co de Phone Number [facility] [place] [address] documented in this encounter Visit Diagnoses Diagnosis Dyspnea, unspecified type Dyspnea, unspecified type documented in this encounter Care Teams Family Service Caseworker Relationship Specialty Start Date End Date Heide Nunn APRN [address] [place] [address] PCP - General Geriatric Medicine 11/20/20 documented as of this encounter
--- OUTSIDE RECORDS SUMMARY | 2024-05-26 00:18 | XMS_ITS | Encounter Summary ---
Author Organization [facility] Address [facility] [place] [address] Care Team Providers Care Cargo Service Supervisor Name Role Phone Arline Heide SNOW Primary Care Provider [phone] Encounter Details Date Type Department Care Team (Late st Contact Info) Description 05/07/2021 3:30 PM EST [place] [phone] Caroline Peters MD [facility] [place] [address] CANCINO (dyspnea on exertion) Social History Tobacco Use Types Packs/Day Years Used Date Smoking Tobacco: Former Cigarettes 1 1983 Smokeless Tobacco: Never Sex and Gender Information Value Date Recorded Sex Assigned at Not on file Gender Identity Not on file Sexual Orientation Not on file documented as of this encounter Last Filed Vital Signs Vital Sign Reading Time Taken Comments Blood Pressure 149/83 05/07/2021 3:22 PM EST Pulse 59 05/07/2021 3:22 PM EST Temperature 36.5 ??C (97.7 ??F) 05/07/2021 3:22 PM ES T Respiratory Rate 16 05/07/2021 3:22 PM EST Oxygen Saturation 100% 05/07/2021 3:22 PM EST Inhaled Oxygen Concentration - - Weight 85.3 kg (188 lb) 05/07/2021 3:22 PM EST Height 167.6 cm (5' 6) 05/07/2021 3:22 PM EST Body Mass Index 30.34 05/07/2021 3:22 PM EST documented in this encounter Progress Notes * Caroline Peters MD - 05/07/2021 3:30 PM EST Images from the original note were not included. [facility] Section of Pulmonary and Critical Care Medicine Outpatient Follow Up Date of Encounter: 05/07/2021 History of Present Illness: Mindy Sr is a pleasant 60 year old woman with a longstanding history of dyspnea. When I initially saw her, she reported that she was in very good shape in her 20's andwas an avid hiker. She was living in a cabin at [facility] and the cabin was closed for the winter and very moldy. During that time she started to develop dyspnea and chest tightness. Since then she has never felt that her breathing was normal. She is typically worse in the spring and fall due to allergies but also experiences worsening of symptoms sometimes in the winter and summer. She is dyspneic with exertion but can also have symptoms at rest. In addition to dyspnea, more recently she has developed vocal cord dysfunction. When I initially saw her I was concerned about HP despite normal PFTs. However, all labs tests for HP were normal. In the midst of this work up she has developed neurologic symptoms and was diagnoses with possible MS. Given the family history of sarcoid, there was a question of neurosarcoidosis. She denies cough or sputum production. She denies fevers or chills. She has environmental allergies that can trigger symptoms. She pushes herself to exercise to stay in shape but she is often quite short of breath during exercise and this is associated with left sided upper back pain. She denies chest pain. Her symptoms change based on barometric pressure and humidity and temperature. Current Medications: Current Outpatient Medications on File Prior to Visit Medication Sig Dispense Refill ??? UNABLE TO FIND daily. lechitine- granules ??? fish oil-omega-3 fatty acids 1,000 mg Capsule Take 2 g by mouth daily. ??? UNABLE TO FIND daily. ceralogic ??? ascorbic acid (LIO-C ORAL) Take 3 capsules by mouth daily. ??? UNABLE TO FIND 1 capsule daily. gotukola ??? multivitamin (THERAGRAN) Tablet Take 1 tablet by mouth daily. ??? cholecalciferol, Vitamin D3, (Vitamin D3) 1,000 unit Tablet Take 10,000 Units by mouth daily. ??? ubiquinone (coenzyme Q10) [...] Negative for abdominal pain. Neurological: Positive for focal weakness and light-headedness. Negative for headaches. Psychiatric/Behavioral: Negative for depression. The patient is not nervous/anxious. Allergic/Immunologic: Positive for environmental allergies. Physical Examination: General: Dyspneic with conversation, hoarse voice HEENT: face symmetric NECK: No adenopathy CHEST: Clear to auscultation bilaterally with no wheezes or crackles CV: Regular, no murmur EXT: No clubbing or edema Diagnostic Testing: IMAGING: I personally reviewed her CT scan from today which showed no parenchymal disease, two sub 5mm nodules, no LAD. There was a moderate sized hiatal hernia. SPIROMETRY: I personally reviewed her PFTs which showed normal spirometry and DLCO Impression / Plan of Care: Mindy Sr is a pleasant 60 year old woman who presented for evaluation of a longstanding history of dyspnea. She has normal spirometry and a normal exam as well as a normal chest CT. Her labs for HP were normal. I do not see any evidence of pulmonary sarcoid. However, neurosarcoid can often occur in the absence of pulmonary sarcoid. Given her workup this far, I do not see any evidence of a pulmonary cause for her symptoms. I suspect that she has respiratory muscle weakness contributing to her exertional dyspnea and this may improve with MS treatment. I spent 30 minutes in the care of this patient including review of notes and imaging, face to face encounter, and documentation. CAROLINE PETERS MD 05/07/2021 4:12 PM documented in this encounter Plan of Treatment Upcoming Encounters Date Type Department Care Team (Late st Contact Info) Description 07/21/2024 11:30 AM EST TH Visit (TeleHealth) [place] [address] Yovanny Garay MD [facility] [place] [address] documented as of this encounter Visit Diagnoses Diagnosis CANCINO (dyspnea on exertion) Other dyspnea and respiratory abnormality documented in this encounter Care Teams Cargo Service Supervisor Relationship Specialty Start Date End Date Heide Nunn APRN [address] [place] [id number] PCP - General Geriatric Medicine 11/20/20 documented as of this encounter
--- OUTSIDE RECORDS SUMMARY | 2024-05-26 00:18 | XMS_ITS | Encounter Summary ---
Author Organization [facility] Address [facility] [place] [address] Care Team Providers Care Boiler Shop Supervisor Name Role Phone Heide Nunn APRN Primary Care Provider Encounter Details Date Type Department Care Team (Latest Contact Info) Description 11/20/2020 2:34 PM EDT - 11/20/2020 11:59 PM EDT Hospital Encounter [place] [phone] SOB (shortness of breath) Discharge Disposition: Home Social History Tobacco Use [...] mg tablet as needed for Pain. 03/29/2019 multivitamin (THERAGRAN) Tablet Take 1 tablet by [...] AM EST TH Visit (TeleHealth) [place] [address] Yovanny Garay MD [facility] [place] [address] documented as of this encounter Procedures Procedure Name Priority Date/Time Associated Diagnosis Comments COMMON PULMONARY FUNCTION TEST Routine 11/20/2020 3:09 PM EDT SOB (shortness of breath) documented in this encounter Results * Pulmonary Function Testing [...] / FVC LLN 67 % COMPAS PFT CFO96-04 Actual Pre-BD 2.22 L/s COMPAS PFT [id number] Pre-BD % of Predicted 94 % COMPAS PFT GFL50-48 Predicted 2.35 L/s COMPAS PFT [id number] Pre-BD Z-Score -0.16 COMPAS PFT DLCO Hb [...] encounter Visit Diagnoses Diagnosis SOB (shortness of breath) Shortness of breath documented in this encounter Care Teams Boiler Shop Supervisor Relationship Specialty Start Date End Date Heide Nunn APRN [address] [place] [address] PCP - General Geriatric Medicine 11/20/20 documented as of this encounter
--- OUTSIDE RECORDS SUMMARY | 2024-05-26 00:18 | XMS_ITS | Encounter Summary ---
Author Organization [facility] Address [facility] [place] [address] Care Team Providers Care Teaching Specialists Name Role Phone Heide Nunn APRN Primary Care Provider [phone] Reason for Referral * Diagnostic Test (Routine) - Closed Specialty Diagnoses / Procedures Referred By Contariadna t Referred To Contact Radiology Diagnoses Dyspnea, unspecified type Procedures CT Chest wo Contrast (Generic) Caroline Pepper MD [facility] [place] [address] [facility] [place] [address] Referral ID Status Reason Start Date Expiration Date V isits Requested Visits Authorized [id number] Closed Specialty Service Requested 11/20/2020 05/22/2022 1 1 Reason for Visit * Diagnostic Test (Routine) - Closed Specialty Diagnoses / Procedures Referred By Contariadna t Referred To Contact Radiology Diagnoses Dyspnea, unspecified type Procedures CT Chest wo Contrast (Generic) Caroline Pepper MD [facility] [place] [address] [facility] [place] [address] Referral ID Status Reason Start Date Expiration Date V isits Requested Visits Authorized [id number] Closed Specialty Service Requested 11/20/2020 05/22/2022 1 1 Encounter Details Date Type Department Care Team (Latest Contact Info) Description 05/07/2021 1:54 PM EST - 05/07/2021 11:59 PM EST Hospital Encounter CT Scan at [facility] [place] [address] Caroline Pepper MD [facility] [place] [address] Dyspnea, unspecified type Discharge Disposition: Home Social History Tobacco Use [...] mg tablet as needed for Pain. 03/29/2019 UNABLE TO FIND daily. lechitine- granules fish [...] AM EST TH Visit (TeleHealth) [place] [address] Yovanny Garay MD [facility] [place] [address] documented as of this encounter Procedures Procedure Name Priority Date/Time Associated Diagnosis Comments CT CHEST WO CONTRAST (GENERIC) Routine 05/07/2021 2:30 PM EST Dyspnea, unspecified type documented in this encounter [...] who have questions please contact the health lawn care technician that requested your imaging first. ? Electronically signed by: Holly Dominique MD, [facility] ([phone]), at 05/07/2021 5:51 PM Narrative 05/07/2021 5:51 PM EST EXAMINATION: CT [...] patients who have questions please contactthe health lawn care technician that requested your imaging first. Electronically signed by: Holly Dominique MD, [facility] ([phone]), at 05/07/2021 5:51 PM Caroline Pepper MD IMG CT ORDERABLES documented in this encounter Visit Diagnoses Diagnosis Dyspnea, unspecified type documented in this encounter Care Teams Teaching Specialists Relationship Specialty Start Date End Date Heide Nunn APRN [address] [place] [address] PCP - General Geriatric Medicine 11/20/20 documented as of this encounter
--- OUTSIDE RECORDS SUMMARY | 2024-05-26 00:18 | XMS_ITS | Encounter Summary ---
Author Organization [facility] [place] [address] Care Team Providers Care Fire Chief'S Aide Name Role Phone Jennifer Nunnica EDY Primary Care Provider [phone] Encounter Details Date Type Department Care Team (Late st Contact Info) Description 01/13/2021 [place] [phone] Emy Miller LPN Social History Tobacco Use Types Packs/Day Years Used Date Smoking Tobacco: Former Cigarettes 1 1983 Smokeless Tobacco: Never Sex and Gender Information Value Date Recorded Sex Assigned at Not on file Gender Identity Not on file Sexual Orientation Not on file documented as of this encounter Miscellaneous Notes * Telephone Encounter - Emy Miller LPN - 01/13/2021 11:30 AM EDT Voicemail rec'd from Mindy, stating she would like to know the Neurologist recommendation from Dr. Pepper, mentions her PCP can make the referral, and that she is anxious to get the recommendation. Message routed to Dr. Pepper to advise. documented in this encounter Plan of Treatment Upcoming Encounters Date Type Department Care Team (Late st Contact Info) Description 07/21/2024 11:30 AM EST TH Visit (TeleHealth) [place] [address] Yovanny Garay MD [facility] [place] [address] documented as of this encounter Visit Diagnoses Not on filedocumented in this encounter Care Teams Fire Chief'S Aide Relationship Specialty Start Date End Date Heide Nunn APRN [address] [place] [address] PCP - General Geriatric Medicine 11/20/20 documented as of this encounter
--- OUTSIDE RECORDS SUMMARY | 2024-05-26 00:18 | XMS_ITS | Encounter Summary ---
Author Organization [facility] Address [facility] [place] [address] Care Team Providers Care Disability Services Coordinator Name Role Phone Galvan, Maddysusan Cabrera APRN Primary Care Provider [phone] Reason for Visit * Reason Comments Hair/Scalp Problem Encounter Details Date Type Department Care Team (Late st Contact Info) Description 02/17/2013 2:30 PM EDT Office Visit Dermatology at [facility] [address] [place] [phone] Jamila Horton MD Seborrheic dermatitis of scalp (Primary Dx) Discharge Disposition: Home Social History Tobacco Use Types Packs/Day Years Used Date Smoking Tobacco: Never Sex and Gender Information Value Date Recorded Sex Assigned at Not on file Gender Identity Not on file Sexual Orientation Not on file documented as of this encounter Progress Notes * Lei Sauceda MD - 02/20/2013 9:17 PM EDT I directly supervised Dr. Horton during this office visit. Dr. Horton presented the history and physical exam to me. I then saw and examined this patient with Dr. Horton. We reviewed the history and pertinent details and I confirmed the physical findings. I agree with the details of the history and physical exam as documented in Dr. Horton's note. LEI SAUCEDA MD Staff Physician * Jamila Horton MD - 02/17/2013 2:27 PM EDT DERMATOLOGY - NEW PATIENT NOTE Kristina Sr Date of service: 02/17/2013 : 1960 Dermatology Resident Note: Jamila Horton MD Chief Problem: Pruritic scalp Chief Complaint Patient presents with ??? Hair/Scalp Problem Mr. Kristina Sr is a 52 y.o. male. This is a new patient to me. Seen in consultation at the request of Maddy Galvan specifically for the evaluation and management of the above problem. HPI: Mr. Sr presents for evaluation of rash on scalp, ears, neck and shoulders which has been getting worse since August. Pruritic. Denies flakes. Patient was evaluated in the ED and they recommended Claritin. She was then evaluated by her PCP who recommended she D/C her Tea Tree Oil Shampoo. She hasobtained Scalpicin and reports this provides some relief. She has a history of childhood eczema. No other concerns today. Past Skin History: Eczema in childhood Medical History: There is no problem list on file for this patient. Medications: citalopram (CELEXA) 20 mg tablet, Active Allergies: Allergies Allergen Reactions ??? 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 Skin: An abbreviated skin exam was performed. This includes: scalp, ears, neck and shoulders. Specific skin findings: 1. Diffuse greasy, loosely adherent, scale throughout scalp, eyebrows Diagnosis/Assessment/Treatment Plan: 1. Seborrheic dermatitis: discussed diagnosis with patient and counseled on possible etiologies. Discussed that treatment is aimed at control rather than cure, and often its course is waxing and waning. Recommended treatment with ketoconazole shampoo, used in the shower 2-3 times weekly: instructedto lather, leave on for 5-10 minutes, then rinse off. Will also prescribe topical Lidex solution kandice used 1-2 times daily PRN for the inflammation and pruritus. Prescriptions: Ketoconazole shampoo, Lidex solution RTC PRN. Instructed to call for questions, concerns. Jamila Horton MD Resident in Dermatology [facility] Patient seen and evaluated with staff sawyer cork slabs: Lei Sauceda MD Section of Dermatology [facility] I performed the above scribed service and agree with the accuracy of the documentation in this encounter. A copy of this report has been sent to the referring provider either by electronic messaging or by fax. documented in this encounter Plan of Treatment Upcoming Encounters Date Type Department Care Team (Late st Contact Info) Description 07/21/2024 11:30 AM EST TH Visit (TeleHealth) [place] [address] Yovanny Garay MD [facility] [place] [address] documented as of this encounter Visit Diagnoses Diagnosis Seborrheic dermatitis of scalp- Primary Other seborrheic dermatitis documented in this encounter Care Teams Disability Services Coordinator Relationship Specialty Start Date End Date Maddy Galvan APRN PCP - General 01/26/13 08/02/16 documented as of this encounter
--- OUTSIDE RECORDS SUMMARY | 2024-05-26 00:18 | XMS_ITS | Encounter Summary ---
Author Organization [facility] [place] [address] Care Team Providers Care Camera Supervisor Name Role Phone ArlineHeide EDY Primary Care Provider [phone] Reason for Visit * Reason Onset Date Comments Letter/Form 07/18/2021 Letter stating M S diagnosis Encounter Details Date Type Department Care Team (Late st Contact Info) Description 07/18/2021 [place] [phone] Yovanny Garay MD [facility] [place] [address] Letter/Form (Letter stating MS diagnosis) Social History Tobacco Use Types Packs/Day Years Used Date Smoking Tobacco: Former Cigarettes 1 4 1 1983 Smokeless Tobacco: Never Sex and Gender Information Value Date Recorded Sex Assigned at Not on file Gender Identity Not on file Sexual Orientation Not on file documented as of this encounter Miscellaneous Notes * Telephone Encounter - Irina Palencia RN - 07/18/2021 2:37 PM EST Letter stating MS diagnosis completed and placed in outgoing mail to home address listed in chart. documented in this encounter Plan of Treatment Upcoming Encounters Date Type Department Care Team (Late st Contact Info) Description 07/21/2024 11:30 AM EST TH Visit (TeleHealth) [place] [address] Yovanny Garay MD [facility] [place] [address] documented as of this encounter Visit Diagnoses Not on filedocumented in this encounter Care Teams Camera Supervisor Relationship Specialty Start Date End Date Heide Nunn APRN [address] [place] [address] PCP - General Geriatric Medicine 11/20/20 documented as of this encounter
--- OUTSIDE RECORDS SUMMARY | 2024-05-26 00:18 | XMS_ITS | Encounter Summary ---
Author Organization [facility] [place] [address] Care Team Providers Care Burn Crew Member Name Role Phone Heide Nunn APRN Primary Care Provider [phone] Reason for Referral * Diagnostic Test (Routine) - Closed Specialty Diagnoses / Procedures Referred By Contac t Referred To Contact Radiology Diagnoses Relapsing remitting multiple sclerosis Procedures MRI Cervical Spine wwo Contrast MRI Cervical Spine wo Contrast (Generic) Yovanny Garay MD [facility] [place] [address] [place] [address] Referral ID Status Reason Start Date Expiration Date V isits Requested Visits Authorized [id number] Closed Specialty Service Requested 07/18/2021 01/15/2023 1 1 * Diagnostic Test (Routine) - Closed Specialty Diagnoses / Procedures Referred By Contariadna t Referred To Contact Radiology Diagnoses Relapsing remitting multiple sclerosis Procedures MRI Brain wwo Contrast (Generic) Yovanny Garay MD [facility] [place] [address] [place] [address] Referral ID Status Reason Start Date Expiration Date V isits Requested Visits Authorized [id number] Closed Specialty Service Requested 07/18/2021 01/15/2023 1 1 Reason for Visit * Diagnostic Test (Routine) - Closed Specialty Diagnoses / Procedures Referred By Contac t Referred To Contact Radiology Diagnoses Relapsing remitting multiple sclerosis Procedures MRI Brain wwo Contrast (Generic) Yovanny aGray MD [facility] [place] [address] [place] [address] Referral ID Status Reason Start Date Expiration Date V isits Requested Visits Authorized [id number] Closed Specialty Service Requested 07/18/2021 01/15/2023 1 1 Encounter Details Date Type Department Care Team (Latest Contact Info) Description 08/14/2021 3:37 PM EST - 08/14/2021 11:59 PM EST Hospital [place] [address] Yovanny Garay MD [facility] [place] [place] [address] Relapsing remitting multiple sclerosis Discharge Disposition: Home [...] mg tablet as needed for Pain. 03/29/2019 lactobacillus rhamnosus, GG, (CULTURELLE) 10 billion cell [...] AM EST TH Visit (TeleHealth) [place] [address] Yovanny Garay MD [facility] [place] [place] [address] documented as of this encounter Procedures Procedure Name Priority Date/Time Associated Diagnosis Comments MRI CERVICAL SPINE WITH/WO CONTRAST Routine 08/14/2021 5:42 PM EST Relapsing remitting multiple sclerosis MRI BRAIN WWO CONTRAST (GENERIC) Routine 08/14/2021 5:42 PM EST Relapsing remitting multiple sclerosis documented in this encounter Results * MRI Cervical Spine wwo Contrast (08/14/2021 5:42 PM EST) Anatomical Region Laterality Modality C-spine Magnetic Resonan ce Impressions 08/14/2021 9:21 PM EST No definite new or enhancing brain or cervical cord lesion. Thank you for letting us participate in the care of this patient. ??If you are a health care provider and have any questions regarding this report, please contact the number below. ??For patients who have questions please contact the health animal caretaker supervisor that requested your imaging first. ? Narrative 08/14/2021 9:21 PM EST EXAMINATION: MRI BRAIN WWO CONTRAST (GENERIC), MRI CERVICAL SPINE WWO CONTRAST CLINICAL HISTORY: Multiple sclerosis, monitor; 60 yo woman with new onset MS; not on DMT-evaluation for new/enhancing lesion TECHNIQUE: Routine MRI of the brain and cervical spine ??performed before and after the intravenous administration of 17 mL Dotarem COMPARISON: MRI brain and cervical spine 02/06/2021 FINDINGS: Brain: No diffusion-weighted abnormality, mass effect or extra-axial collection. Parenchymal volume loss with surrounding T2 signal alteration in the left frontal lobe is unchanged. Asymmetric dilatation of the left ventricular atrium with surrounding signal alteration is similar. Similar lesion in the splenium of the corpus callosum as well as significance callososeptal signal alteration. Scattered punctate foci of subcortical and cortical signal alteration are similar in appearance and number. No definite new lesion. No enhancing lesion. Cervical spine: Small right dorsal cord lesion at the foramen magnum level is likely unchanged. Unchanged right dorsal cord lesion at the C3-C4 levels, spanning approximately 1.5 cm. Small left ventrolateral cord lesion at the C5-6 level. Possible punctate ventral cord lesion at the C5 level. No enhancing cord lesion. Similar mild degenerative changes at C5-6 and C6-7 where disc osteophyte complexes indent the ventral thecal sac contributing to mild canal narrowing. Procedure Note Ree Kebede MD - 08/14/2021 EXAMINATION: MRI BRAIN WWO CONTRAST (GENERIC), MRI CERVICAL SPINE WWOCONTRAST CLINICAL HISTORY: Multiple sclerosis, monitor; 60 yo woman with new onsetMS; not on DMT-evaluation for new/enhancing lesion TECHNIQUE: Routine MRI of the brain and cervical spine performed beforeand after the intravenous administration of 17 mL Dotarem COMPARISON: MRI brain and cervical spine 02/06/2021 FINDINGS: Brain: No diffusion-weighted abnormality, mass effect or extra-axialcollection. Parenchymal volume loss with surrounding T2 signal alteration in theleft frontal lobe is unchanged. Asymmetric dilatation of the left ventricularatrium with surrounding signal alteration is similar. Similar lesion in thesplenium of the corpus callosum as well as significance callososeptal signalalteration. Scattered punctate foci of subcortical and cortical signal alterationare similar in appearance and number. No definite new lesion. No enhancinglesion. Cervical spine: Small right dorsal cord lesion at the foramen magnum levelis likely unchanged. Unchanged right dorsal cord lesion at the C3-O9isdxzl, spanning approximately 1.5 cm. Small left ventrolateral cord lesion at theC5-6 level. Possible punctate ventral cord lesion at the C5 level. No enhancingcord lesion. Similar mild degenerative changes at C5-6 and C6-7 where disc osteophyte complexes indent the ventral thecal sac contributing to mild canalnarrowing. IMPRESSION No definite new or enhancing brain or cervical cord lesion. Thank you for letting us participate in the care of this patient. If youare a health care provider and have any questions regarding this report,please contact the number below. For patients who have questions please contactthe health animal caretaker supervisor that requested your imaging first. Yovanny Garay MD [facility] MRI ORDERABLES * MRI Brain wwo Contrast (Generic) (08/14/2021 5:42 PM EST) Anatomical Region Laterality Modality Head Magnetic Resonan ce Impressions 08/14/2021 9:21 PM EST No definite new or enhancing brain or cervical cord lesion. Thank you for letting us participate in the care of this patient. ??If you are a health care provider and have any questions regarding this report, please contact the number below. ??For patients who have questions please contact the health animal caretaker supervisor that requested your imaging first. ? Electronically signed by: COTY Amezcua [facility] ([phone]), at 08/14/2021 9:21 PM Narrative 08/14/2021 9:21 PM EST EXAMINATION: MRI BRAIN WWO CONTRAST (GENERIC), MRI CERVICAL SPINE WWO CONTRAST CLINICAL HISTORY: Multiple sclerosis, monitor; 60 yo woman with new onset MS; not on DMT-evaluation for new/enhancing lesion TECHNIQUE: Routine MRI of the brain and cervical spine ??performed before and after the intravenous administration of 17 mL Dotarem COMPARISON: MRI brain and cervical spine 02/06/2021 FINDINGS: Brain: No diffusion-weighted abnormality, mass effect or extra-axial collection. Parenchymal volume loss with surrounding T2 signal alteration in the left frontal lobe is unchanged. Asymmetric dilatation of the left ventricular atrium with surrounding signal alteration is similar. Similar lesion in the splenium of the corpus callosum as well as significance callososeptal signal alteration. Scattered punctate foci of subcortical and cortical signal alteration are similar in appearance and number. No definite new lesion. No enhancing lesion. Cervical spine: Small right dorsal cord lesion at the foramen magnum level is likely unchanged. Unchanged right dorsal cord lesion at the C3-C4 levels, spanning approximately 1.5 cm. Small left ventrolateral cord lesion at the C5-6 level. Possible punctate ventral cord lesion at the C5 level. No enhancing cord lesion. Similar mild degenerative changes at C5-6 and C6-7 where disc osteophyte complexes indent the ventral thecal sac contributing to mild canal narrowing. Procedure Note Ree Kebede MD - 08/14/2021 EXAMINATION: MRI BRAIN WWO CONTRAST (GENERIC), MRI CERVICAL SPINE WWOCONTRAST CLINICAL HISTORY: Multiple sclerosis, monitor; 60 yo woman with new onsetMS; not on DMT-evaluation for new/enhancing lesion TECHNIQUE: Routine MRI of the brain and cervical spine performed beforeand after the intravenous administration of 17 mL Dotarem COMPARISON: MRI brain and cervical spine 02/06/2021 FINDINGS: Brain: No diffusion-weighted abnormality, mass effect or extra-axialcollection. Parenchymal volume loss with surrounding T2 signal alteration in theleft frontal lobe is unchanged. Asymmetric dilatation of the left ventricularatrium with surrounding signal alteration is similar. Similar lesion in thesplenium of the corpus callosum as well as significance callososeptal signalalteration. Scattered punctate foci of subcortical and cortical signal alterationare similar in appearance and number. No definite new lesion. No enhancinglesion. Cervical spine: Small right dorsal cord lesion at the foramen magnum levelis likely unchanged. Unchanged right dorsal cord lesion at the C3-F9gyromv, spanning approximately 1.5 cm. Small left ventrolateral cord lesion at theC5-6 level. Possible punctate ventral cord lesion at the C5 level. No enhancingcord lesion. Similar mild degenerative changes at C5-6 and C6-7 where disc osteophyte complexes indent the ventral thecal sac contributing to mild canalnarrowing. IMPRESSION No definite new or enhancing brain or cervical cord lesion. Thank you for letting us participate in the care of this patient. If youare a health care provider and have any questions regarding this report,please contact the number below. For patients who have questions please contactthe health animal caretaker supervisor that requested your imaging first. Yovanny Garay MD [facility] MRI ORDERABLES documented in this encounter Visit Diagnoses Diagnosis Relapsing remitting multiple sclerosis Multiple sclerosis documented in this encounter Administered Medications Inactive Administered Medications - up to 3 most recent administrations Medication Order MAR Action Action Date Dose Rate Site gadoterate meglumine (Dotarem) (0.5 mMol/mL) injection solution 0-100 mL 0-100 mL, Intravenous, ONCE PRN, 1 dose, Starting on Coreen 08/14/21 at 1639, Until Coreen 08/14/21 at 1716, Per Protocol, Radiology Contrast, Routine Given 08/14/2021 5:16 PM EST 17 mLs documented in this encounter Care Teams Burn Crew Member Relationship Specialty Start Date End Date Heide Nunn APRN [address] [facility] [place] [address] PCP - General Geriatric Medicine 11/20/20 documented as of this encounter
--- OUTSIDE RECORDS SUMMARY | 2024-05-26 00:18 | XMS_ITS | Encounter Summary ---
Author Organization [facility] Address [facility] [place] [address] Care Team Providers Care Mimeograph Operator Name Role Phone Heide Nunn APRN Primary Care Provider [phone] Encounter Details Date Type Department Care Team (Late st Contact Info) Description 01/10/2021 Telephone [place] [phone] Caroline Peters MD [facility] [place] [address] Social History Tobacco Use Types Packs/Day Years Used Date Smoking Tobacco: Former Cigarettes 1 4 1 980 - 1983 Smokeless Tobacco: Never Sex and Gender Information Value Date Recorded Sex Assigned at Not on file Gender Identity Not on file Sexual Orientation Not on file documented as of this encounter Miscellaneous Notes * Telephone Encounter - Caroline Peters MD - 01/10/2021 2:03 PM EDT Mindy called today to discuss her upcoming tests and appointment. She had a recent brain/spine MRI for numbness in her arms/hands and it showed demyelinating plaques consistent with MS. She is seeingher PCP today to discuss future testing and referrals. Given that, she was hoping to delay her chest CT and appointment with me. The CT is certainly not emergent so I told her we would cancel her fornext week and she should contact us when she is ready to reschedule. I also told her that I was happy to refer her to a Neurologist with expertise in MS if she would like that. CAROLINE PETERS MD documented in this encounter Plan of Treatment Upcoming Encounters Date Type Department Care Team (Late st Contact Info) Description 07/21/2024 11:30 AM EST TH Visit (TeleHealth) [place] [address] Yovanny Garay MD [facility] [place] [address] documented as of this encounter Visit Diagnoses Not on filedocumented in this encounter Care Teams Mimeograph Operator Relationship Specialty Start Date End Date Heide Nunn APRN [address] [facility] [place] [place] [address] PCP - General Geriatric Medicine 11/20/20 documented as of this encounter
--- OUTSIDE RECORDS SUMMARY | 2024-05-26 00:18 | XMS_ITS | Encounter Summary ---
Author Organization [facility] Address [facility] [place] [address] Care Team Providers Care Automobile Mechanic Radiator Name Role Phone ArlineHeide EDY Primary Care Provider [phone] Reason for Visit * Reason Onset Date Comments Appointment 04/14/2021 Encounter Details Date Type Department Care Team (Late st Contact Info) Description 04/14/2021 [place] [phone] Yovanny Garay MD [facility] [place] [address] Appointment Social History Tobacco Use Types Packs/Day Years Used Date Smoking Tobacco: Former Cigarettes 1 4 1 - 1983 Smokeless Tobacco: Never Sex and Gender Information Value Date Recorded Sex Assigned at Not on file Gender Identity Not on file Sexual Orientation Not on file documented as of this encounter Miscellaneous Notes * Telephone Encounter - Graciela Plasencia - 04/14/2021 8:12 AM EST Scheduling Instructions Provider: Dr Garay Visit Type (paste LOYD Instructions or manually enter): Return in about 3 months (around 07/12/2021) for In Person Appt Note: Relapsing remitting multiple sclerosis Additional Info Needed: documented in this encounter Plan of Treatment Upcoming Encounters Date Type Department Care Team (Late st Contact Info) Description 07/21/2024 11:30 AM EST TH Visit (TeleHealth) [place] [address] Yovanny Garay MD [facility] [place] [address] documented as of this encounter Visit Diagnoses Not on filedocumented in this encounter Care Teams Automobile Mechanic Radiator Relationship Specialty Start Date End Date Heide Nunn APRN [facility] [place] [address] PCP - General Geriatric Medicine 11/20/20 documented as of this encounter
--- OUTSIDE RECORDS SUMMARY | 2024-05-26 00:18 | XMS_ITS | Encounter Summary ---
Author Organization [facility] Address [facility] [place] [address] Care Team Providers Care Fur Mixer Operator Name Role Phone Heide Nunn APRN Primary Care Provider [phone] Encounter Details Date Type Department Care Team (Late st Contact Info) Description 07/24/2021 [place] [address] Ita Godinez MD [facility] [place] [address] Social History Tobacco Use Types Packs/Day Years Used Date Smoking Tobacco: Former Cigarettes 1 4 1 - 1983 Smokeless Tobacco: Never Sex and Gender Information Value Date Recorded Sex Assigned at Not on file Gender Identity Not on file Sexual Orientation Not on file documented as of this encounter Miscellaneous Notes * Telephone Encounter - Israel Brennan J - 07/24/2021 12:41 PM EST Patient calling, looking to get the notes that were promised to her from Dr. Godinez. Patient was rude to me on the phone and kept repeating herself. She told me I was being very rude and talking over her and not letting her get a word in. I kept telling her all I could do was send a message to Dr. Godinez, but since the visit got closed out before Dr. Godinez started her note thereis no way for the notes to be put into the portal the normal way. Again patient kept repeating thatshe needed this medical information. I let patient know again all we can do and she kept telling Robert was being rude and talking over her. I told her I was hanging up and would send the message to Dr. Godinez. PHONE: [phone] documented in this encounter Plan of Treatment Upcoming Encounters Date Type Department Care Team (Late st Contact Info) Description 07/21/2024 11:30 AM EST TH Visit (TeleHealth) [place] [address] Yovanny Garay MD [facility] [place] [address] documented as of this encounter Visit Diagnoses Not on filedocumented in this encounter Care Teams Fur Mixer Operator Relationship Specialty Start Date End Date Heide Nunn APRN [address] [place] [address] PCP - General Geriatric Medicine 11/20/20 documented as of this encounter
--- OUTSIDE RECORDS SUMMARY | 2024-05-26 00:18 | XMS_ITS | Encounter Summary ---
Author Organization [facility] [address] Care Team Providers Care Installer Technician Name Role Phone Heide Nunn APRN Primary Care Provider [phone] Reason for Visit * Reason Onset Date Comments Other 01/14/2021 Relaying a messa ge from Dr. Pepper Encounter Details Date Type Department Care Team (Late st Contact Info) Description 01/14/2021 [place] [phone] Heide Bautista RN Other (Relaying a message from Dr. Pepper) Social History Tobacco Use Types Packs/Day Years Used Date Smoking Tobacco: Former Cigarettes 1 4 1983 Smokeless Tobacco: Never Sex and Gender Information Value Date Recorded Sex Assigned at Not on file Gender Identity Not on file Sexual Orientation Not on file documented as of this encounter Miscellaneous Notes * Telephone Encounter - Heide Bautista RN - 01/14/2021 10:27 AM EDT I have called Pt per Dr. Pepper request. Per MD I have relayed the following message as follows: Would you mind letting her know that I would recommend she see Enid Sofia as she has expertise in MS? Thank you! Leigha -Dr. Pepper Pt has verbally expressed understanding of this recommendation and did not have any further questions for me at this time. Heide Bautista RN Department of Pulmonary 5C, [facility] / Pager: [phone] documented in this encounter Plan of Treatment Upcoming Encounters Date Type Department Care Team (Late st Contact Info) Description 07/21/2024 11:30 AM EST TH Visit (TeleHealth) [place] [address] Yovanny Garay MD [facility] [place] [address] documented as of this encounter Visit Diagnoses Not on filedocumented in this encounter Care Teams Installer Technician Relationship Specialty Start Date End Date Heide Nunn APRN [address] [place] [address] PCP - General Geriatric Medicine 11/20/20 documented as of this encounter
--- OUTSIDE RECORDS SUMMARY | 2024-05-26 00:18 | XMS_ITS | Encounter Summary ---
Author Organization [facility] [place] [address] Care Team Providers Care Ferry Captain Name Role Phone Heide Nunn APRN Primary Care Provider [phone] Reason for Referral * Diagnostic Test (Routine) - Closed Specialty Diagnoses / Procedures Referred By Contac t Referred To Contact Radiology Diagnoses Relapsing remitting multiple sclerosis Procedures MRI Cervical Spine wwo Contrast MRI Cervical Spine wo Contrast (Generic) Yovanny Garay MD [facility] [place] [address] [place] [address] Referral ID Status Reason Start Date Expiration Date V isits Requested Visits Authorized [id number] Closed Specialty Service Requested 07/18/2021 01/15/2023 1 1 * Diagnostic Test (Routine) - Closed Specialty Diagnoses / Procedures Referred By Contac t Referred To Contact Radiology Diagnoses Relapsing remitting multiple sclerosis Procedures MRI Brain wwo Contrast (Generic) Yovanny Garay MD [facility] [address] [place] [address] Referral ID Status Reason Start Date Expiration Date V isits Requested Visits Authorized [id number] Closed Specialty Service Requested 07/18/2021 01/15/2023 1 1 Encounter Details Date Type Department Care Team (Late st Contact Info) Description 07/18/2021 11:00 AM EST [place] [phone] Yovanny Garay MD [facility] [address] Relapsing remitting multiple sclerosis Social History Tobacco [...] Sign Reading Time Taken Comments Blood Pressure 113/73 07/18/2021 10:45 AM EST Pulse 70 07/18/2021 10:45 AM EST Temperature - - Respiratory Rate - - Oxygen Saturation - - Inhaled Oxygen Concentration - - Weight 83.9 kg (185 lb) 07/18/2021 10:45 AM EST Height - - Body Mass Index 29.86 05/07/2021 3:22 PM EST documented in this encounter Progress Notes * Yovanny Garay MD - 07/18/2021 11:00 AM EST [id number] 46 minutes Routine f/u for this 60 yo woman with the diagnosis of MS. I saw her for the first time 3 months ago and documented the following: She was well until July of this year when she suddenly developed??right arm pain and numbness.You(Dr.Van Kessler) initiated a work up which revealed T2 hyperintensities in brain and C-cord; an LP was strongly positive with 13 unique to CSF OCBs and elevated IgG index. 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 The patient wishes to be as conservative as possible, which is not unreasonable, and does not wish to initiate an MS drug at this time. We decided to get f/u imaging of brain and c-cord in August(wwo) to see if there are any new lesions. BP 113/73 Pulse 70 Wt 83.9 kg (185 lb) BMI 29.86 kg/m?? 9 Hole-Peg Test Dominant Hand DH Trial 1 Time (seconds):: 29.31 seconds DH Trial 2 Time (seconds):: 31.04 seconds Non Dominant Hand Non DH Trial 1 Time (seconds):: 27.33 Non DH Trial 2 Time (seconds):: 27.81 25 Foot Walk Test Time 1: 5.16 Time 2: 5.24 Patient reported outcomes: myD-H Multiple Sclerosis 04/11/2021 [id number] We had a long discussion about CIS vs. MS, neurosarcoidosis,stress in the workplace. She requested a To whom it may concern letter documenting that she has MS, and I asked Norma to send that. I also ordered an MRI brain and C-spine to compare to her previous scans which are available on eDHand were done in 2020. She will return in 2 months after her imaging. MD Raji Plascencia Professor of Neurology Department of Neurology [facility] [place] [address] At least 30 minutes of this 46 minute face to face visit were spent in discussion of the topics outlined in the note above including diagnosis, therapy, and management issues. . documented in this encounter Plan of Treatment Upcoming Encounters Date Type Department Care Team (Late st Contact Info) Description 07/21/2024 11:30 AM EST TH Visit (TeleHealth) [place] [address] Yovanny Garay MD [facility] [place] [address] documented as of this encounter Results * MRI Cervical Spine [...] who have questions please contact the health child caregiver that requested your imaging first. ? Narrative [...] to mild canal narrowing. Procedure Note Ree Kebdee MD - 08/14/2021 EXAMINATION: MRI BRAIN WWO [...] Unchanged right dorsal cord lesion at the C3-K6eqigkn, spanning approximately 1.5 cm. Small left ventrolateral [...] patients who have questions please contactthe health child caregiver that requested your imaging first. Yovanny Garay MD [facility] MRI ORDERABLES * MRI Brain wwo Contrast [...] who have questions please contact the health child caregiver that requested your imaging first. ? Narrative [...] Unchanged right dorsal cord lesion at the C3-E9olbyno, spanning approximately 1.5 cm. Small left ventrolateral [...] patients who have questions please contactthe health child caregiver that requested your imaging first. Yovanny Garay MD IM MRI ORDERABLES documented in this encounter Visit Diagnoses Diagnosis Relapsing remitting multiple sclerosis Multiple sclerosis Relapsing remitting multiple sclerosis Multiple sclerosis documented in this encounter Care Teams Ferry Captain Relationship Specialty Start Date End Date Heide Nunn APRN [address] [place] [address] PCP - General Geriatric Medicine 11/20/20 documented as of this encounter
--- OUTSIDE RECORDS SUMMARY | 2024-05-26 00:18 | XMS_ITS | Encounter Summary ---
Author Organization [facility] Address [facility] [place] [address] Care Team Providers Care Manager Epic Name Role Phone Heide Nunn APRN Primary Care Provider Encounter Details Date Type Department Care Team (Late st Contact Info) Description 11/21/2020 Telephone [place] [phone] Heide Dominguez Social History Tobacco Use Types Packs/Day Years [...] AM EST TH Visit (TeleHealth) [place] [address] Yovanny Garay MD [facility] [place] [address] documented as of this encounter Visit Diagnoses Not on filedocumented in this encounter Care Teams Manager Epic Relationship Specialty Start Date End Date Heide Nunn APRN [address] [place] [address] PCP - General Geriatric Medicine 11/20/20 documented as of this encounter
--- OUTSIDE RECORDS SUMMARY | 2024-05-26 00:18 | XMS_ITS | Encounter Summary ---
Author Organization [facility] Address [facility] [place] [address] Care Team Providers Care Collect On Delivery Clerk Name Role Phone ArlineValerianoHeidedoreen SNOW Primary Care Provider [phone] Reason for Referral * Consultation (Routine) - Closed Specialty Diagnoses / Procedures Referred By Savi matthew Referred To Contact Urology Diagnoses Relapsing remitting multiple sclerosis EAG REVIEW - NPW NOT URGENT Yovanny Garay MD [facility] [place] [address] Ita Godinez MD [facility] [place] [address] Referral ID Status Reason Start Date Expiration Date V isits Requested Visits Authorized [id number] Closed Consult, Test & Treat 04/11/2021 04/11/2022 1 1 Reason for Visit * Consultation (Urgent) - Closed Specialty Diagnoses / Procedures Referred By Savi matthew Referred To Contact Neurology Diagnoses Multiple sclerosis Sonya Guillaume MD [facility] [address] [place] [address] [facility] [address] [place] [phone] Referral ID Status Reason Start Date Expiration Date V isits Requested Visits Authorized [id number] Closed Consult, Test & Treat [facility] PCP Updated and/or Approved 02/25/2021 02/25/2022 6 6 Encounter Details Date Type Department Care Team (Late st Contact Info) Description 04/11/2021 5:00 PM EDT Office [place] [address] Yovanny Garay MD [facility] [place] [address] Relapsing remitting multiple sclerosis Social [...] Sign Reading Time Taken Comments Blood Pressure 143/85 04/11/2021 4:26 PM EDT Pulse 70 04/11/2021 4:26 PM EDT Temperature - - Respiratory Rate - - Oxygen Saturation - - Inhaled Oxygen Concentration - - Weight 82.6 kg (182 lb) 04/11/2021 4:26 PM EDT r eported Height 167.6 cm (5' 6) 04/11/2021 4:26 PM EDT r eported Body Mass Index 29.38 04/11/2021 4:26 PM EDT documented in this encounter Progress Notes * Yovanny Garay MD - 04/11/2021 5:00 PM EDT [id number] 67 minutes Sonya Guillaume MD Dear Dr.Van Kessler, Thank you for asking the [facility] to consult on your patient Kristina Sr, a 60 yo woman with MS. She was accompanied by her . HPI- She was well until July of this year when she suddenly developed??right arm pain and numbness. You initiated a work up which revealed T2 hyperintensities in brain and C-cord; an LP was strongly positive with 13 unique to CSF OCBs and elevated IgG index. Her symptoms have improved but she is not back to her baseline. She also has noted occasional problems controlling her bladder since Jul. ?? 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 She has been having symptoms of SOB, and is getting an evaluation by [place] [facility]. As part of this she will be getting a CT scan of her chest, which is already scheduled. SH-She has two sons who are going to be visiting them soon. She works at the [employer] (15 hours/week), but she is considering disability/retiring. FH-She has a brother with sarcoidosis ?? Ht 167.6 cm (5' 6) Comment: reported Wt 82.6 kg (182 lb) Comment: reported BMI 29.38 kg/m?? Her examination is relatively intact except for: -bilateral intention tremor right worse than left -inferior field cut os, which apparently is old 9 Hole-Peg Test Dominant Hand DH Trial 1 Time (seconds):: 35.45 seconds DH Trial 2 Time (seconds):: 32.57 seconds Non Dominant Hand Non DH Trial 1 Time (seconds):: 34.24 Non DH Trial 2 Time (seconds):: 30.28 25 Foot Walk Test Time 1: 4.15 Time 2: 4.83 Impression- Initial clinical demyelinating event with multiple MRI lesions satisfying disseminationin space(DIS) and positive OCBs satisfying dissemination in [...] see if there are any new lesions. Plan- -she will get her images from [facility] pushed to [facility] -she will consult with re her bladder issues -she will f/u with me in 3 months at which time we will order the August imaging -she is considering applying for disability or some other mechanism to lighten her work load Thank you for referring this very nice lady to [facility]. MD Raji Plascencia Professor of Neurology Department of Neurology [facility] and [address] [address] At least 40 minutes of this 67 minute face to face visit were spent in discussion of the topics outlined in the note above including diagnosis, therapy, and management issues. documented in this encounter Plan of Treatment Upcoming Encounters Date Type Department Care Team (Late st Contact Info) Description 07/21/2024 11:30 AM EST TH Visit (TeleHealth) [place] [address] Yovanny Garay MD [facility] [place] [address] Scheduled Referrals Name Type Priority Associated Diagnoses Orde r Schedule Referral to Urology Outpatient Referral Routine Relapsing remitting multiple sclerosis Ordered: 04/11/2021 documented as of this encounter Visit Diagnoses Diagnosis Relapsing remitting multiple sclerosis Multiple sclerosis documented in this encounter Care Teams Collect On Delivery Clerk Relationship Specialty Start Date End Date Heide Nunn APRN [address] [place] [address] PCP - General Geriatric Medicine 11/20/20 documented as of this encounter
--- OUTSIDE RECORDS SUMMARY | 2024-05-26 00:18 | XMS_ITS | Encounter Summary ---
Author Organization [facility] [place] [address] Care Team Providers Care Group Therapist Name Role Phone Heide Nunn APRN Primary Care Provider [phone] Encounter Details Date Type Department Care Team (Late st Contact Info) Description 01/09/2021 [place] [phone] Eun Dyson Social History Tobacco Use Types Packs/Day Years Used Date Smoking Tobacco: Former Cigarettes 1 1983 Smokeless Tobacco: Never Sex and Gender Information Value Date Recorded Sex Assigned at Not on file Gender Identity Not on file Sexual Orientation Not on file documented as of this encounter Miscellaneous Notes * Telephone Encounter - Eun Dyson - 01/09/2021 9:22 AM EDT She is thinking of canceling her appts next week due to costs and to much radiation from tests. Sheis having multiple MRIs in the near future. She would like someone to call her and talk to her about the radiation. She is seeing her PCP tomorrow. I told her that her PCP could answer those questions for her. She was not happy with that an wants someone from here to call her. [phone]. [place] sent[address]. Dean. documented in this encounter Plan of Treatment Upcoming Encounters Date Type Department Care Team (Late st Contact Info) Description 07/21/2024 11:30 AM EST TH Visit (TeleHealth) [place] [address] Yovanny Garay MD [facility] [place] [address] documented as of this encounter Visit Diagnoses Not on filedocumented in this encounter Care Teams Group Therapist Relationship Specialty Start Date End Date Heide Nunn APRN [facility] [place] [address] PCP - General Geriatric Medicine 11/20/20 documented as of this encounter
--- OUTSIDE RECORDS SUMMARY | 2024-05-26 00:18 | XMS_ITS | Encounter Summary ---
Author Organization [facility] [place] [address] Care Team Providers Care Typist Name Role Phone Heide Nunn APRN Primary Care Provider Encounter Details Date Type Department Care Team (Late st Contact Info) Description 02/06/2021 Ancillary Procedure Radiology Library at [facility] [place] [address] Heide Nunn APRN [address] [place], [place] [id number] Social History Tobacco Use Types Packs/Day Years [...] EST TH Visit (TeleHealth) Neurology at [facility] [place] [phone] Yovanny Garay MD [facility] [place] [address] documented as of this encounter Procedures Procedure Name Priority Date/Time Associated Diagnosis Comments FILM LIBRARY STORAGE ONLY MR HEAD Routine 02/06/2021 12:00 AM EDT documented in this encounter Results * Film Library- Storage Only MR Head (02/06/2021 12:00 AM EDT) Narrative [facility] - 04/21/2021 9:21 AM EST This exam is auto-finalizing. It's purpose is for storage only. Heide Nunn APRN IMG FILM LIBRARY OR DERABLES [place], [place] documented in this encounter Visit Diagnoses Not on filedocumented in this encounter Care Teams Typist Relationship Specialty Start Date End Date Heide Nunn APRN [address] [place] [address] PCP - General Geriatric Medicine 11/20/20 documented as of this encounter
--- NOTE | 2024-05-26 10:25 | DI.RAD_ITS ---
Exam(s) RF CHEST FLUOROSCOPY CXR 2V EXAM: RF CHEST FLUOROSCOPY CXR 2V CLINICAL HISTORY: reduced muscle pressures,chronic sob,disorder of diaphragm,ms,r06.02 . TECHNIQUE: 2D and realtime digital imaging was performed. CONTRAST MATERIAL: No contrast was administered. COMPARISON: No exams were available for comparison FINDINGS: CHEST X-RAY: The heart and pulmonary vasculature are within normal limits. The lungs are clear. No pl eural effusion or pneumothorax is present. The bones are within normal limits for the patient's age. Note is made of a small hiatal hernia. There is normal excursion of the hemidiaphragms bilaterally. No evidence of a paralyzed diaphragm is seen. There is normal downward motion of the diaphragms bilaterally with inspiration/sniffing. IMPRESSION: 1. Normal examination. No evidence of diaphragmatic paralysis. 2. No acute pulmonary process. RADIATION DOSE DELIVERED: arias Aldrich=13.4 mGy
== END 2024-05-26 00:35 ==
LOC: DI 00:15
PROVIDERS: PCP Nurse Practitioner Adult Health; Visit Provider Physician Assistant Surgical
DX: R06.02 Shortness of breath (principal); G35 Multiple sclerosis; J98.6 Disorders of diaphragm
CPT/HCPCS: 76000

== ENCOUNTER 2024-06-13 03:00 | Outpatient (CLI) | payer BC, SELFPAY ==
[2024-06-13 10:35] LABS: Calculated LDL 148 mg/dL (<100); Cholesterol 263 mg/dL (<200); HDL Cholesterol 92 mg/dL (40-60); Triglyceride 119 mg/dL (<150)
[2024-06-14 11:40] LABS: Measles IgG Antibody Positive (See Note)
== END 2024-06-13 03:01 | disposition home or self-care (01) ==
LOC: LBO 03:00
PROVIDERS: PCP Nurse Practitioner Adult Health; Visit Provider Nurse Practitioner Adult Health
DX: Z13.220 Encounter for screening for lipoid disorders (principal); Z86.39 Personal history of other endocrine, nutritional and metabolic disease; Z13.9 Encounter for screening, unspecified
CPT/HCPCS: 36415; 80061; 82306; 86765

== ENCOUNTER 2024-06-20 02:26 | Outpatient (CLI) | payer BC, SELFPAY ==
--- NOTE | 2024-06-20 06:45 | DI.RAD_ITS ---
Exam(s) XR THUMB LT EXAM: XR THUMB LT EXAM DATE/TIME: CLINICAL HISTORY: Base of CMC with abnormal ?bony abnormality/growth.Q79.9. TECHNIQUE: 2D digital imaging was performed of the left finger. Three views were obtained. PA/AP, oblique, and lateral views were obtained. COMPARISON: Comparison is made with prior examinations. FINDINGS: BONES: No acute fracture is present. No bony destructive lesion is seen. JOINTS: No dislocation is present. There are marked arthritic changes seen at the 1st CMC joint shira acterized by joint space narrowing and osteophytes. There is a well-circumscribed osseous density at the lateral aspect of the trapezium bone. It appears chronic. There are mild arthritic changes see n at the IP joint of the thumb. SOFT TISSUE: Normal. 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 Chronic appearing well-circumscribed osseous density adj acent to the trapezium bone. DATA REPOSITORY: RADIATION DOSE DELIVERED:
== END 2024-06-20 02:46 ==
LOC: DI 02:26
PROVIDERS: PCP Nurse Practitioner Adult Health; Visit Provider Nurse Practitioner Adult Health
DX: M19.042 Primary osteoarthritis, left hand (principal)
CPT/HCPCS: 73140

== ENCOUNTER 2024-06-26 03:39 | Outpatient (CLI) | payer BC, SELFPAY ==
--- NOTE | 2024-07-18 12:49 | W.PFT ---
Date of service: 06/26/24 Time of Service: 15:01 Pulmonary Function Test Result Indications: Chronic dyspnea Interpretation Spirometry: There is no airflow limitation. No bronchodilator response. Lung Volumes: Normal lung volumes Diffusion Capacity: Normal diffusion Airway Pressure: Normal airways resistance Impression Normal pulmonary function testing Clinical Correlation therefore is recommended.
== END 2024-06-26 03:40 | disposition home or self-care (01) ==
LOC: RT 03:40
PROVIDERS: PCP Nurse Practitioner Adult Health; Visit Provider Student in an Organized Health Care Education/Training Program
DX: R06.09 Other forms of dyspnea (principal)
CPT/HCPCS: 94726; 94729; 94010

== ENCOUNTER 2024-09-15 14:55 | Outpatient (CLI) | payer BC, SELFPAY ==
[2024-09-15 15:11] LABS: ESR 4 mm/hr (0-30)
[2024-09-15 15:49] LABS: ALT 21 U/L (14-59); AST 17 U/L (15-37); Albumin 3.9 g/dL (3.4-5.0); Alkaline Phosphatase 93 U/L (46-116); Anion Gap 5.2 mmol/L (3-11); BUN 12 mg/dL (7-18); Bilirubin, Total 0.4 mg/dL (0.2-1.0); CO2 30.8 mmol/L (21.0-32.0); CREATININE 0.8 mg/dL (0.55-1.02); Calcium 9.3 mg/dL (8.5-10.1); Chloride 103 mmol/L (98-107); Estimated GFR 83.26 (mL/min/1.73m2); Glucose 116 mg/dL (74-106); Potassium 3.9 mmol/L (3.5-5.1); Sodium 139 mmol/L (136-145); Total Protein 7.7 g/dL (6.4-8.2)
[2024-09-15 21:46] LABS: CRP, High Sensitivity 1.83 mg/L (See Note); Rheumatoid Factor 27.9 IU/mL (<12.0)
[2024-09-18 10:55] LABS: Cyclic Citrullinated Peptide <2.5 U/mL (<5.0)
[2024-09-18 11:08] LABS: Lyme Ab w Rflx to Lyme Confirm Negative (Negative)
[2024-09-19 12:33] LABS: ANA Interpretation Negative (Negative)
[2024-09-20 09:25] LABS: HLA-B27 Result Negative
== END 2024-09-15 14:56 | disposition home or self-care (01) ==
LOC: LBO 14:59
PROVIDERS: PCP Nurse Practitioner Adult Health; Visit Provider Podiatrist Foot & Ankle Surgery
DX: M19.079 Primary osteoarthritis, unspecified ankle and foot (principal)
CPT/HCPCS: 36415; 80053; 85652; 86141; 86200; 86812; 84550; 86038; 86431; 86618